=== PATIENT | male | born 1950 | race Caucasian/White ===

== ENCOUNTER 2016-03-26 10:23 | Inpatient (IN) | payer MEDICARE, BC, OTHER ==
[~2016-03-26] VITALS: Ht 167.6 cm; Wt 90.3 kg
[~2016-03-26 10:23] MED LIST: ACET-654 PO; ALTA10CA3 PO; ASPI81TA85 PO; ASPI81TAEC PO; ATOR40TA PO; AZIT250T3 PO; CHLO25TA PO; COLA100C PO; DELT1TAB PO; DOXY10CA PO; IBUP200T45 PO; MAPA325T2 PO; METO50TA2 PO; MUCI600T34 PO; NICO14PA TD; PROA1AER INH; SERTRALINE 100 MG TAB PO SCH; VITA200015 PO; ZOLO100T PO
[2016-03-26] MEDS ORDERED: ALBUTEROL SULFATE 2.5 MG/0.5 ML INH NEB SOLN NEB PRN (10:45)
[2016-03-26 11:16] VITALS: BP 155/89
[2016-03-26] MEDS ORDERED: ALBUTEROL SULFATE 2.5 MG/0.5 ML INH NEB SOLN As Ordered ONE (11:29)
[2016-03-26 11:35] LABS: BASO % 0.6 % (0.0-1.0); EOS # 1.7 K/mm3 (0.0-0.50); EOS % 18.1 % (0.0-3.0); LARGE UNSTAINED CELL # 0.2 K/mm3 (0.0-0.4); LYMPH # 1.6 K/mm3 (1.5-4.5); LYMPH % 17.1 % (24.0-44.0); MEAN CORPUSCULAR HEMOGLOBIN 33.7 pg (27.0-33.0); MEAN CORPUSCULAR HGB CONC 33.7 g/dl (32.0-36.5); MEAN CORPUSCULAR VOLUME 99.9 fl (80.0-96.0); MONO # 0.8 K/mm3 (0.0-0.8); MONO % 8.1 % (0.0-5.0); NEUTROPHILS # 5.2 K/mm3 (1.8-7.7); NEUTROPHILS % 54.2 % (36.0-66.0); PLATELET COUNT, AUTOMATED 415 k/mm3 (150-450); RED CELL DISTRIBUTION WIDTH 12.1 % (11.5-14.5); WHITE BLOOD COUNT 9.6 K/mm3 (4.0-10.0)
[2016-03-26 11:55] LABS: ABG BASE EXCESS 4.5 (-2.0-2.0); ABG HCO3 30.3 MEQ/L (22.0-26.0); ABG PARTIAL PRESSURE CO2 49.8 mmHg (35.0-45.0); ABG PARTIAL PRESSURE O2 76.5 mmHg (75.0-100.0); ABG STANDARD HCO3 28.4 MEQ/L (22.0-26.0); ABG TOTAL CO2 31.8 MEQ/L (23.0-31.0); ABG pH (ARTERIAL) 7.402 UNITS (7.350-7.450)
[2016-03-26 12:00] VITALS: BP 150/77
[2016-03-26] MEDS ORDERED: SPIR12.9 INH (12:09)
[2016-03-26 12:13] LABS: ALBUMIN 3.7 GM/DL (3.2-5.2); ALBUMIN/GLOBULIN RATIO 1.12 (1.00-1.93); ALKALINE PHOSPHATASE 66 U/L (45-117); ALT/SGPT 24 U/L (12-78); ANION GAP 10 MEQ/L (8-16); AST/SGOT 13 U/L (15-37); BILIRUBIN,TOTAL 0.4 MG/DL (0.2-1.0); BLOOD UREA NITROGEN 26 MG/DL (7-18); CALCIUM LEVEL 9.2 MG/DL (8.8-10.2); CARBON DIOXIDE LEVEL 32 MEQ/L (21-32); CHLORIDE LEVEL 101 MEQ/L (98-107); CREATININE FOR GFR 1.05 MG/DL (0.70-1.30); GLOMERULAR FILTRATION RATE > 60.0 (>49); GLUCOSE, FASTING 113 MG/DL (80-110); POTASSIUM SERUM 3.5 MEQ/L (3.5-5.1); SODIUM LEVEL 143 MEQ/L (136-145)
--- NOTE | 2016-03-26 12:14 | CR ---
DATE OF CONSULTATION: 03/26/2016 PULMONARY CONSULTATION: I was asked to see this 66-year-old male admitted today with cough and increasing dyspnea with low oxygen saturations in the primary care office. He was ill with similar symptoms in January and February. Following each of those admissions, his symptoms would subside for some time but then re-occur. A smoker of many years he quit his 50 pack-year smoking history 4-6 weeks ago. At baseline, he is short of breath on walking up one flight of stairs, does not feel limited to walking on level ground at his own pace. There is no past pulmonary history of bronchopulmonary infections. 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 It did expose him to various aromatics and dust, but there was no overwhelming exposure identified. No asbestos exposure known. He has no environmental sensitivities that he is aware of, though he has been treated for nasal polyps in the past. There is no history of tuberculosis exposures. He has never suffered a deep venous thrombosis (DVT) or pulmonary embolism. Has no recent significant foreign travel and owns no unusual pets. He partakes in no uncommon hobbies. His past medical history includes hypertension, acid reflux disease, benign prostatic hypertrophy, nasal polyps, hyperparathyroidism. On social history, a 50 pack-year smoker. He recently stopped. He takes alcohol and a regular basis. Has a supportive spouse who is present at the interview today. Family history was noncontributory in that there was no known inheritable illness. On review of systems: Constitutional: His appetite has been fair. He has had no significant change in weight. HEENT: He has a history of sinus polyps and believes he is recurrently involved with sinus infections. There is no history of impairment of smell or taste. He has recently had cataract resections. Cardiovascular: There is no history of typical anginal-type chest pain, orthopnea or paroxysmal nocturnal dyspnea. Pulmonary: See above. Gastrointestinal (GI): There is a history of colon polyps remotely and diverticular disease. No history of hepatitis, pancreatitis or gallbladder disease. Genitourinary (): There is a history of frequency. No dysuria or kidney stone history. Endocrine: He has primary hyperparathyroidism. No history of diabetes but is known to be prediabetic. He has had no recent intolerance of heat or cold, nor signs of endocrine disorder. Neurologic: There is no history of stroke or seizure. Musculoskeletal: He has some back pain and osteoarthritis. Dermatologic: No psoriasis or pruritic skin lesions. Hematologic: No easy bruising or bleeding. He has never received a blood transfusion. On physical exam: His temperature is 97, pulse rate 67, respirations 19, blood pressure 135/89, saturation 94% on 2 liters of oxygen via nasal cannula. HEENT: Oral and nasal mucosa are pink. His posterior pharynx shows no erythema. There is no stridor over the trachea. No adenopathy in the neck. Jugular veins not distended. Carotid upstroke is brisk. No bruit. Heart sounds are regular, somewhat distant. No appreciable murmur. Breath are sounds diminished bilaterally. There is diffuse inspiratory and expiratory wheeze. Chest is symmetric, increased its AP diameter. There is mild hyperresonance to percussion. No tactile fremitus. Diaphragm motion is difficult to assess. Abdomen is soft, obese with intact bowel sounds. No mass or organomegaly. Extremities: Show no significant edema. Nails are not clubbed. Skin is cool, dry. Gait and station untested. The patient is in bed. DIAGNOSTIC STUDIES: Laboratory studies and x-rays are pending from today. I have reviewed previous images. CT of the chest shows some emphysematous changes and there is a chronic subpleural density in the left base what appears to be scar tissue. Prior arterial blood gases did not reveal hypercarbia. IMPRESSION: 1. Acute exacerbation of chronic obstructive pulmonary disease with significant airway inflammation. 2. Tobacco abuse, 50 pack-years, recently quit. RECOMMENDATION: 1. I agree with intravenous antibiotics, IV steroids, oxygen and nebulized therapy. 2. We will ask that his nebulized treatments be administered via EzPAP to facilitate delivery. 3. I will add Pulmicort to his nebulizer to facilitate weaning from the IV steroids. 4. Mucinex to facilitate secretion clearance. Thank you for allowing me consult review this patient. We will be happy to follow with you during his hospital stay, on an outpatient basis if necessary.
--- NOTE | 2016-03-26 13:21 | REP ---
CT HEAD WITHOUT CONTRAST: HISTORY: Sinusitis. Comparison 02/14/2015. Areas of decreased attenuation are present in the periventricular white matter. This represents small vessel ischemic disease. There is no intraparenchymal hemorrhage, mass or midline shift. The ventricular system is normal in appearance. The cortical sulci are dilated consistent with minimal volume loss. There is no extracerebral collection. Mucosal thickening is present in the sinuses. IMPRESSION: 1. Small vessel ischemic disease. 2. Minimal volume loss. Signed by Roshan Guaman MD 03/26/2016 01:23 P
--- NOTE | 2016-03-26 13:24 | REP ---
MAXILLOFACIAL CT WITHOUT CONTRAST: HISTORY: Chronic sinusitis. COMPARISON: 09/12/2015. Diffuse sinus mucosal thickening is present in the sinuses. There is complete opacification of the right frontal sinus. There is almost complete opacification of the ethmoid and left frontal sinuses. Moderate mucosal thickening is present in the maxillary sinuses. Minimal mucosal thickening is present in the sphenoid sinuses. Mucosal thickening involves the ostiomeatal units. The uncinate processes and several ethmoid sinus septa are not seen. This may be due to surgery or demineralization secondary to chronic sinusitis. The middle and inferior nasal turbinates are partially paradoxical. There is minimal deviation of the nasal septum to the left. A spur is present arising from the left side of the nasal septum. The cribriform plate, medial herrera of the orbits and optic canals are intact. The carotid canals form a segment of the posterolateral herrera of the sphenoid sinus. The sphenoid sinus septum inserts in the left internal carotid canal wall. IMPRESSION: Sinus mucosal thickening as described above. Signed by Roshan Guaman MD 03/26/2016 01:27 P
[2016-03-26] MEDS: IPRATROPIUM 0.5MG/ALBUTEROL 2.5MG INH SOL UD 3ML (DUONEB)(J7620) NEB SCH ×2 (13:41→20:13)
[2016-03-26] MEDS: BUDESONIDE 0.5 MG/2 ML INHALATION SUSPENSION INH SCH ×2 (13:42→20:12)
--- NOTE | 2016-03-26 13:58 | REP ---
CHEST, TWO VIEWS: HISTORY: COPD. COMPARISON: 02/29/2016 Linear densities are present in the left lower lobe consistent with atelectasis or scar. The right lung is clear. The heart is normal in size. The pulmonary vasculature is normal in appearance. Degenerative change is present in the thoracic spine. IMPRESSION: Left lower lobe atelectasis or scar. Signed by Roshan Guaman MD 03/26/2016 01:59 P
[2016-03-26] MEDS: PANTOPRAZOLE 40MG TAB (PROTONIX) PO SCH (13:59)
[2016-03-26] MEDS: ENOXAPARIN 40 MG/0.4 ML SYRINGE (J1650) SC SCH (13:59)
[2016-03-26] MEDS: guaiFENesin ER 600 MG TAB PO SCH ×2 (13:59→21:08)
[2016-03-26] MEDS: MOXIFLOXACIN HCL 400 MG in APPROPRIATE DILUENT 1 EA IV SCH (14:00)
[2016-03-26] MEDS: methylPREDNISolone INJ 125 MG/2 ML VIAL (J2930) IV SCH ×2 (14:00→21:09)
--- NOTE | 2016-03-26 15:24 | ECHO ---
DATE OF PROCEDURE: 03/26/2016 HEIGHT: 66 inches. WEIGHT: 195 pounds. BODY SURFACE AREA: 1.98 meters squared. INPATIENT: ICU room 3206 REFERRING PHYSICIAN: Dr. Aubrey Alcantara INDICATION: Shortness of breath. MEASUREMENTS: 2D Measurements: RV - 3.6 cm LV - 4.4 cm Septum - 1.1 cm Posterior wall - 1.1 cm Aortic root - 3.1 cm LA - 3.6 cm LVEF - 65% Doppler Measurements: ARTERIOVENOUS - 1.5 m/s LVOT - Not accurate incorrect Doppler position. LVOT diameter - 2.2 cm MV-E - 88, A - 63, E/A ratio 1.3 Early mitral deceleration time - 183 ms E prime 6, A prime 8, E/E prime ratio 13.2 PV - 0.95 m/s Pulmonary artery acceleration time 95 ms. PASP - 36 mmHg IVC - 1.7 cm COMMENTS: Sinus bradycardia averaging in the 50s per minute. No intraventricular conduction disturbance. Slightly challenging study in light of the patient's body habitus but diagnostically useful information was still obtained. Normal cardiac chamber sizes and wall thickness. On real-time imaging from the parasternal and apical projections, wall motion was symmetrical and normal. Normal-appearing mitral valvular apparatus and leaflet excursion with no posterior systolic buckling. Three equal size aortic cusps of normal thickness and cusp separation. Normal aortic root size. No apparent intracardiac mass or pericardial effusion. Guided continuous wave Doppler of his aortic valve showed a normal peak systolic velocity against LV outflow tract obstruction. Pulsed and continuous wave Doppler of his LV inflow tract taken from the apical four-chamber projection showed normal diastolic filling velocities against mitral stenosis. There was also a normal filling pattern against LV diastolic dysfunction. Current estimated mean left atrial pressure was within normal limits. Pulsed and continuous wave Doppler of his pulmonary trunk showed a normal peak systolic velocity against RV outflow tract obstruction. His pulmonary artery acceleration time was mildly abbreviated suggestive of a slightly elevated pulmonary vascular resistance and mild pulmonary hypertension. We attempted to further estimate his right ventricular systolic pressure using guided continuous wave Doppler of his tricuspid valve but could not get a clear spectral and envelope. His inferior vena cava was of normal size with normal respiratory collapse against an elevated central venous pressure. CONCLUSION: Normal-appearing left ventricular size, wall thickness and wall motion. Normal left atrial size and Doppler assessment of LV diastolic function and estimated mean left atrial pressure. Normal right heart chamber sizes but Doppler evidence of mild pulmonary hypertension. Normal IVC size and collapse against an elevated central venous pressure.
[2016-03-26 16:00] VITALS: BP 125/75
--- NOTE | 2016-03-26 16:46 | ECGEPIP ---
Stationary ECG Study [facility] Test Date: 2016-03-26 Pat Name: CHULA QUINTERO Department: Room: [place] [address] Gender: M [employer]: : 1950 Requested By: Aubrey Alcantara Order Number: [id number] Reading MD: Anthony Mendes Measurements Intervals [place] Rate: 61 P: 75 [place]: 177 QRS: 32 QRSD: 97 T: 18 QT: 435 QTc: 440 Interpretive Statements Normal sinus rhythm Normal EKG No significant change when compared to prior tracing of 02/29/2016 Electronically Signed On 03-26-2016 16:46:12 EST by Anthony Mendes
[2016-03-26 17:30] VITALS: BP 144/81
[2016-03-26] MEDS: ATORVASTATIN 20 MG TAB PO SCH (21:09)
[2016-03-26 22:00] VITALS: BP 125/92
[2016-03-27] MEDS: IPRATROPIUM 0.5MG/ALBUTEROL 2.5MG INH SOL UD 3ML (DUONEB)(J7620) NEB SCH ×5 (00:40→22:23)
[2016-03-27] MEDS: methylPREDNISolone INJ 125 MG/2 ML VIAL (J2930) IV SCH ×3 (05:33→21:41)
[2016-03-27 06:00] VITALS: BP 142/61
[2016-03-27 07:00] LABS: MEAN CORPUSCULAR HEMOGLOBIN 33.8 pg (27.0-33.0); MEAN CORPUSCULAR HGB CONC 34.1 g/dl (32.0-36.5); MEAN CORPUSCULAR VOLUME 99.4 fl (80.0-96.0); RED CELL DISTRIBUTION WIDTH 12.2 % (11.5-14.5)
[2016-03-27] MEDS: BUDESONIDE 0.5 MG/2 ML INHALATION SUSPENSION INH SCH (07:07)
[2016-03-27 07:09] LABS: ANION GAP 9 MEQ/L (8-16); BLOOD UREA NITROGEN 20 MG/DL (7-18); CALCIUM LEVEL 9.5 MG/DL (8.8-10.2); CARBON DIOXIDE LEVEL 30 MEQ/L (21-32); CHLORIDE LEVEL 102 MEQ/L (98-107); CREATININE FOR GFR 1.08 MG/DL (0.70-1.30); GLOMERULAR FILTRATION RATE > 60.0 (>49); GLUCOSE, FASTING 149 MG/DL (80-110); POTASSIUM SERUM 3.3 MEQ/L (3.5-5.1); SODIUM LEVEL 141 MEQ/L (136-145)
[2016-03-27] MEDS: ENOXAPARIN 40 MG/0.4 ML SYRINGE (J1650) SC SCH (08:45)
[2016-03-27] MEDS: RAMIPRIL 5 MG CAP PO SCH (08:46)
[2016-03-27] MEDS: CHLORTHALIDONE 25 MG TAB PO SCH (08:46)
[2016-03-27] MEDS: SERTRALINE 100 MG TAB PO SCH (08:47)
[2016-03-27] MEDS: guaiFENesin ER 600 MG TAB PO SCH ×2 (08:47→21:41)
[2016-03-27] MEDS: ASPIRIN 81 MG ENTERIC TAB PO SCH (08:47)
[2016-03-27] MEDS: PANTOPRAZOLE 40MG TAB (PROTONIX) PO SCH (08:47)
--- NOTE | 2016-03-27 11:44 | IPNPDOC ---
Assessment/Plan Date Seen The patient was seen on 03/27/16. Problems Problems: (1) Hypoxemia Status: Acute Problem Specific Plan: Monitor Clinically Problem Text: requiring 4LNC. Will continue to taper down as patient's condition improves. (2) COPD exacerbation Status: Acute Problem Specific Plan: Monitor Clinically Problem Text: Continue Solumedrol, Avelox, nebs Patient's friend states symptoms return when stopped prednisone after past hospitalizations. may consider longer steroid taper. (3) Diabetes mellitus type 2 in obese Status: Chronic Problem Specific Plan: Monitor Clinically (4) Depression Status: Chronic Problem Specific Plan: Monitor Clinically (5) Hyperlipidemia Status: Chronic Problem Specific Plan: Monitor Clinically (6) Hypertension Status: Chronic Problem Specific Plan: Monitor Clinically (7) Hypertensive heart disease without CHF Status: Chronic Problem Specific Plan: Monitor Clinically Plan / VTE VTE Prophylaxis Ordered?: Yes (Lovenox) Plan Plan Text Attending Note: I saw and evaluated the patient, and I agree with the plan of care as discussed and documented. Ramon Fernando MD Subjective Review of Systems CC/HPI The patient is a 66-year-old male admitted with a reason for visit of Copd, Hypoxemia. Events since last encounter noting improvement in symptoms since yesterday. EZ Pap added to neb txs. Patient tolerating well. Constitutional: Denies: Chills, Fever, Malaise, Night Sweats, Weakness ENT: Denies: Dysphagia, Ear Pain, Head Aches Skin: Denies: Breakdown, Lesions, Rash Pulmonary: Reports: Cough, Dyspnea Cardiovascular: Denies: Chest Pain, Lt Headedness, Orthopnea, Palpitations, Paroxysmal Noc. Dyspnea Gastrointestinal: Denies: Abdominal Pain, Diarrhea, Nausea, Vomiting Genitourinary: Denies: Dysuria, Frequency, Incontinence, Retention Psych: Reports: Mood Normal, Denies: Depression, Memory Issues Objective Physical Examination General Exam: Positive: Alert, No Acute Distress ENT Exam: Positive: Atraumatic, Mucous membr. moist/pink, Pharynx Normal Neck Exam: Positive: Supple, Negative: JVD, thyromegaly Chest Exam: Positive: Diminished, Wheezing Heart Exam: Positive: Normal S1, Normal S2, Rate Normal, Regular Rhythm, Negative: Murmurs, Rubs Abdomen Exam: Positive: Normal bowel sounds, Soft, Negative: Hepatospenomegaly, Tenderness Extremity Exam: Positive: Normal pulses, Negative: Clubbing, Cyanosis, Edema Psych Exam: Positive: Mental status NL, Mood NL, Oriented x 3 Vital Signs/I&O Vital Signs Date Time Temp Pulse Resp B/P Pulse Ox O2 Delivery O2 Flow Rate FiO2 03/27/16 09:45 Nasal Cannula 4.0 03/27/16 08:46 142/61 03/27/16 06:00 98.2 60 16 92 I&O- Last 24 Hours up to 6 AM 03/27/16 06:00 Intake Total 1200 ml Output Total 800 ml Balance 400 ml Laboratory Data Labs 24H Laboratory Tests 2 03/26/16 11:41: Arterial Blood pH 7.402, Arterial Blood Partial Pressure CO2 49.8H, Arterial Blood Partial Pressure O2 76.5, Arterial Blood Total CO2 31.8H, Arterial Blood HCO3 30.3H, Arterial Blood Base Excess 4.5H, Arterial Blood Oxygen Saturation 95.0, Blood Gas Bicarbonate Standard 28.4H 03/27/16 06:36: Anion Gap 9, Blood Urea Nitrogen 20H, Creatinine 1.08, Sodium Level 141, Potassium Level 3.3L, Chloride Level 102, Carbon Dioxide Level 30, Calcium Level 9.5, Glomerular Filtration Rate > 60.0 CBC/BMP Laboratory Tests 03/27/16 06:36 Calcium Level 9.5, Red Blood Count 3.55 L, Mean Corpuscular Volume 99.4 H, Mean Corpuscular Hemoglobin 33.8 H, Mean Corpuscular Hemoglobin Concent 34.1, Red Cell Distribution Width 12.2 Microbiology Microbiology 03/26/16 Respiratory Virus Panel (PCR) ([facility]) - Final, Complete 03/26/16 MRSA Screen, Received Pending Venecia Pritchett Mar 27, 2016 11:44 RAMON FERNANDO MD Mar 31, 2016 21:43
[2016-03-27] MEDS ORDERED: POTASSIUM CHLORIDE 10 MEQ SR TABLET PO ONE (11:45)
[2016-03-27] MEDS: FLUTICASONE PROP 0.05% NASAL SPRAY 16 GM (FLONASE) SCH ×2 (13:41→21:41)
[2016-03-27] MEDS: MOXIFLOXACIN HCL 400 MG in APPROPRIATE DILUENT 1 EA IV SCH (13:42)
[2016-03-27 14:00] VITALS: BP 135/62
[2016-03-27] MEDS: SYMBICORT 160/4.5MCG INHALER 6GM INH SCH (16:48)
[2016-03-27 19:55] VITALS: BP 160/89
[2016-03-27] MEDS: ATORVASTATIN 20 MG TAB PO SCH (21:41)
[2016-03-27 22:06] VITALS: BP 160/89
[2016-03-28] MEDS: methylPREDNISolone INJ 125 MG/2 ML VIAL (J2930) IV SCH ×3 (05:26→21:43)
[2016-03-28 06:03] VITALS: BP 133/68
[2016-03-28 07:00] LABS: ANION GAP 8 MEQ/L (8-16); BLOOD UREA NITROGEN 26 MG/DL (7-18); CARBON DIOXIDE LEVEL 31 MEQ/L (21-32); CHLORIDE LEVEL 104 MEQ/L (98-107); CREATININE FOR GFR 0.98 MG/DL (0.70-1.30); GLOMERULAR FILTRATION RATE > 60.0 (>49); GLUCOSE, FASTING 138 MG/DL (80-110); POTASSIUM SERUM 3.5 MEQ/L (3.5-5.1); SODIUM LEVEL 143 MEQ/L (136-145)
[2016-03-28 07:02] LABS: MEAN CORPUSCULAR HEMOGLOBIN 33.9 pg (27.0-33.0); MEAN CORPUSCULAR HGB CONC 33.8 g/dl (32.0-36.5); MEAN CORPUSCULAR VOLUME 100.2 fl (80.0-96.0); RED CELL DISTRIBUTION WIDTH 12.4 % (11.5-14.5); WHITE BLOOD COUNT 13.2 K/mm3 (4.0-10.0)
[2016-03-28] MEDS: SYMBICORT 160/4.5MCG INHALER 6GM INH SCH ×2 (07:43→19:53)
[2016-03-28] MEDS: IPRATROPIUM 0.5MG/ALBUTEROL 2.5MG INH SOL UD 3ML (DUONEB)(J7620) NEB SCH ×3 (07:44→19:53)
[2016-03-28 08:31] VITALS: BP 133/68
[2016-03-28] MEDS: CHLORTHALIDONE 25 MG TAB PO SCH (08:40)
[2016-03-28] MEDS: ENOXAPARIN 40 MG/0.4 ML SYRINGE (J1650) SC SCH (08:40)
[2016-03-28] MEDS: RAMIPRIL 5 MG CAP PO SCH (08:40)
[2016-03-28] MEDS: SERTRALINE 100 MG TAB PO SCH (08:41)
[2016-03-28] MEDS: ASPIRIN 81 MG ENTERIC TAB PO SCH (08:41)
[2016-03-28] MEDS: guaiFENesin ER 600 MG TAB PO SCH ×2 (08:43→21:42)
[2016-03-28] MEDS: PANTOPRAZOLE 40MG TAB (PROTONIX) PO SCH (08:43)
[2016-03-28] MEDS: FLUTICASONE PROP 0.05% NASAL SPRAY 16 GM (FLONASE) SCH ×2 (08:44→21:43)
--- NOTE | 2016-03-28 11:56 | IPNPDOC ---
Assessment/Plan Date Seen The patient was seen on 03/28/16. Problems Problems: (1) Hypoxemia Status: Acute Problem Specific Plan: Monitor Clinically Problem Text: requiring 4LNC. Will continue to taper down as patient's condition improves. (2) COPD exacerbation Status: Acute Problem Specific Plan: Monitor Clinically Problem Text: D3 moxi-03/26/16 CXR s infiltrate Continue Solumedrol, Avelox, nebs Patient's friend states symptoms return when stopped prednisone after past hospitalizations. may consider longer steroid taper. (3) Diabetes mellitus type 2 in obese Status: Chronic Problem Specific Plan: Monitor Clinically (4) Depression Status: Chronic Problem Specific Plan: Monitor Clinically (5) Hyperlipidemia Status: Chronic Problem Specific Plan: Monitor Clinically (6) Hypertension Status: Chronic Problem Specific Plan: Monitor Clinically (7) Hypertensive heart disease without CHF Status: Chronic Problem Specific Plan: Monitor Clinically (8) Oral candidiasis Status: Acute Problem Text: Nystatin Swish and swallow. Encouraged to rinse after nebs. Plan / VTE VTE Prophylaxis Ordered?: Yes (Lovenox) Subjective Review of Systems CC/HPI The patient is a 66-year-old male admitted with a reason for visit of Copd, Hypoxemia. Events since last encounter Continues to have dyspnea. Failed weaning on oxygen yesterday. C/o sore throat today. Constitutional: Denies: Chills, Fever, Malaise, Night Sweats, Weakness ENT: Reports: Sore Throat Skin: Denies: Breakdown, Lesions, Rash Pulmonary: Reports: Dyspnea Cardiovascular: Denies: Chest Pain, Lt Headedness, Orthopnea, Palpitations, Paroxysmal Noc. Dyspnea Gastrointestinal: Denies: Abdominal Pain, Diarrhea, Nausea, Vomiting Genitourinary: Denies: Dysuria, Frequency, Incontinence, Retention Psych: Reports: Mood Normal, Denies: Depression, Memory Issues Objective Physical Examination General Exam: Positive: Alert, No Acute Distress ENT Exam: Positive: Atraumatic, Mucous membr. moist/pink, Other ENT (macules to oropharynx noted), Pharynx Normal Neck Exam: Positive: Supple, Negative: JVD, thyromegaly Chest Exam: Positive: Diminished Heart Exam: Positive: Normal S1, Normal S2, Rate Normal, Regular Rhythm, Negative: Murmurs, Rubs Abdomen Exam: Positive: Normal bowel sounds, Soft, Negative: Hepatospenomegaly, Tenderness Extremity Exam: Positive: Normal pulses, Negative: Clubbing, Cyanosis, Edema Psych Exam: Positive: Mental status NL, Mood NL, Oriented x 3 Vital Signs/I&O Vital Signs Date Time Temp Pulse Resp B/P Pulse Ox O2 Delivery O2 Flow Rate FiO2 03/28/16 08:40 133/68 03/28/16 08:31 95 03/28/16 08:29 Nasal Cannula 4.0 03/28/16 06:03 97.6 20 95 I&O- Last 24 Hours up to 6 AM 03/28/16 06:00 Intake Total 1200 ml Output Total 2 ml Balance 1198 ml Laboratory Data Labs 24H Laboratory Tests 2 03/28/16 06:31: Anion Gap 8, Blood Urea Nitrogen 26H, Creatinine 0.98, Sodium Level 143, Potassium Level 3.5, Chloride Level 104, Carbon Dioxide Level 31, Calcium Level 9.0, Glomerular Filtration Rate > 60.0 CBC/BMP Laboratory Tests 03/28/16 06:31 Calcium Level 9.0, Red Blood Count 3.21 L, Mean Corpuscular Volume 100.2 H, Mean Corpuscular Hemoglobin 33.9 H, Mean Corpuscular Hemoglobin Concent 33.8, Red Cell Distribution Width 12.4 Microbiology Microbiology 03/26/16 Respiratory Virus Panel (PCR) ([facility]) - Final, Complete 03/26/16 MRSA Screen - Final, Complete Venecia Pritchett Mar 28, 2016 11:56 Alex Peraza M.D. Mar 28, 2016 14:01
[2016-03-28 14:00] VITALS: BP 157/73
[2016-03-28] MEDS: MOXIFLOXACIN 400 MG TAB PO SCH (14:50)
[2016-03-28] MEDS: ATORVASTATIN 20 MG TAB PO SCH (21:42)
[2016-03-28 22:00] VITALS: BP 168/77
[2016-03-29] MEDS: IPRATROPIUM 0.5MG/ALBUTEROL 2.5MG INH SOL UD 3ML (DUONEB)(J7620) NEB SCH ×4 (01:37→20:00)
[2016-03-29] MEDS: methylPREDNISolone INJ 125 MG/2 ML VIAL (J2930) IV SCH ×3 (05:56→21:01)
[2016-03-29] MEDS: MOXIFLOXACIN 400 MG TAB PO SCH (05:56)
[2016-03-29 06:00] VITALS: BP 136/79
[2016-03-29 06:53] LABS: MEAN CORPUSCULAR HEMOGLOBIN 34.5 pg (27.0-33.0); MEAN CORPUSCULAR VOLUME 101.3 fl (80.0-96.0); RED CELL DISTRIBUTION WIDTH 12.2 % (11.5-14.5); WHITE BLOOD COUNT 11.2 K/mm3 (4.0-10.0)
[2016-03-29 07:00] LABS: ANION GAP 8 MEQ/L (8-16); BLOOD UREA NITROGEN 25 MG/DL (7-18); CALCIUM LEVEL 8.4 MG/DL (8.8-10.2); CARBON DIOXIDE LEVEL 33 MEQ/L (21-32); CHLORIDE LEVEL 102 MEQ/L (98-107); GLOMERULAR FILTRATION RATE > 60.0 (>49); GLUCOSE, FASTING 106 MG/DL (80-110); POTASSIUM SERUM 3.2 MEQ/L (3.5-5.1); SODIUM LEVEL 143 MEQ/L (136-145)
[2016-03-29] MEDS: SYMBICORT 160/4.5MCG INHALER 6GM INH SCH ×2 (07:36→19:48)
[2016-03-29] MEDS: guaiFENesin ER 600 MG TAB PO SCH ×2 (09:09→19:53)
[2016-03-29] MEDS: RAMIPRIL 5 MG CAP PO SCH (09:09)
[2016-03-29] MEDS: PANTOPRAZOLE 40MG TAB (PROTONIX) PO SCH (09:09)
[2016-03-29] MEDS: ENOXAPARIN 40 MG/0.4 ML SYRINGE (J1650) SC SCH (09:10)
[2016-03-29] MEDS: ASPIRIN 81 MG ENTERIC TAB PO SCH (09:10)
[2016-03-29] MEDS: SERTRALINE 100 MG TAB PO SCH (09:10)
[2016-03-29] MEDS: FLUTICASONE PROP 0.05% NASAL SPRAY 16 GM (FLONASE) SCH ×2 (09:10→19:53)
[2016-03-29] MEDS: CHLORTHALIDONE 25 MG TAB PO SCH (09:10)
[2016-03-29 10:39] VITALS: BP 136/79
--- NOTE | 2016-03-29 13:24 | IPNPDOC ---
Assessment/Plan Date Seen The patient was seen on 03/29/16. Problems Problems: (1) Hypoxemia Status: Acute Problem Specific Plan: Monitor Clinically Problem Text: 03/29/2016: tapered down to 2LNC requiring 4LNC. Will continue to taper down as patient's condition improves. (2) COPD exacerbation Status: Acute Problem Specific Plan: Monitor Clinically Problem Text: D4 moxi-03/26/16 CXR s infiltrate Continue Solumedrol, Avelox, nebs Patient's friend states symptoms return when stopped prednisone after past hospitalizations. may consider longer steroid taper. (3) Diabetes mellitus type 2 in obese Status: Chronic Problem Specific Plan: Monitor Clinically (4) Depression Status: Chronic Problem Specific Plan: Monitor Clinically (5) Hyperlipidemia Status: Chronic Problem Specific Plan: Monitor Clinically (6) Hypertension Status: Chronic Problem Specific Plan: Monitor Clinically (7) Hypertensive heart disease without CHF Status: Chronic Problem Specific Plan: Monitor Clinically (8) Oral candidiasis Status: Acute Problem Text: Nystatin Swish and swallow. Encouraged to rinse after nebs. Plan / VTE VTE Prophylaxis Ordered?: Yes (Lovenox) Subjective Review of Systems CC/HPI The patient is a 66-year-old male admitted with a reason for visit of Copd, Hypoxemia. Events since last encounter Continues to slowly improve. Oxygen weaned to 2LNC. Constitutional: Denies: Chills, Fever, Malaise, Night Sweats, Weakness ENT: Denies: Dysphagia, Ear Pain, Head Aches Pulmonary: Reports: Cough, Dyspnea Cardiovascular: Denies: Chest Pain, Lt Headedness, Orthopnea, Palpitations, Paroxysmal Noc. Dyspnea Gastrointestinal: Denies: Abdominal Pain, Diarrhea, Nausea, Vomiting Genitourinary: Denies: Dysuria, Frequency, Incontinence, Retention Neurological: Denies: Change in speech, Confusion, Numbness, Weakness Psych: Reports: Mood Normal, Denies: Depression, Memory Issues Objective Physical Examination General Exam: Positive: Alert, No Acute Distress ENT Exam: Positive: Atraumatic, Mucous membr. moist/pink, Other ENT, Pharynx Normal Neck Exam: Positive: Supple Chest Exam: Positive: Diminished (improved aeration. no wheeze) Heart Exam: Positive: Normal S1, Normal S2, Rate Normal, Regular Rhythm Abdomen Exam: Positive: Normal bowel sounds, Soft Extremity Exam: Positive: Normal pulses Psych Exam: Positive: Mental status NL, Mood NL, Oriented x 3 Vital Signs/I&O Vital Signs Date Time Temp Pulse Resp B/P Pulse Ox O2 Delivery O2 Flow Rate FiO2 03/29/16 10:39 78 136/79 03/29/16 07:57 Nasal Cannula 3.0 03/29/16 07:44 92 03/29/16 06:00 96.8 20 I&O- Last 24 Hours up to 6 AM 03/29/16 06:00 Intake Total 1920 ml Output Total 1800 ml Balance 120 ml Laboratory Data Labs 24H Laboratory Tests 2 03/29/16 06:32: Anion Gap 8, Blood Urea Nitrogen 25H, Creatinine 1.00, Sodium Level 143, Potassium Level 3.2L, Chloride Level 102, Carbon Dioxide Level 33H, Calcium Level 8.4L, Glomerular Filtration Rate > 60.0 CBC/BMP Laboratory Tests 03/29/16 06:32 Calcium Level 8.4 L, Red Blood Count 3.15 L, Mean Corpuscular Volume 101.3 H, Mean Corpuscular Hemoglobin 34.5 H, Mean Corpuscular Hemoglobin Concent 34.0, Red Cell Distribution Width 12.2 Microbiology Microbiology 03/26/16 Respiratory Virus Panel (PCR) ([facility]) - Final, Complete 03/26/16 MRSA Screen - Final, Complete Venecia Pritchett Mar 29, 2016 13:24
[2016-03-29 14:00] VITALS: BP 129/78
[2016-03-29] MEDS ORDERED: POTASSIUM CHLORIDE 10 MEQ SR TABLET PO ONE (14:00)
[2016-03-29] MEDS: ATORVASTATIN 20 MG TAB PO SCH (19:53)
[2016-03-30] MEDS: IPRATROPIUM 0.5MG/ALBUTEROL 2.5MG INH SOL UD 3ML (DUONEB)(J7620) NEB SCH ×4 (00:54→19:29)
[2016-03-30] MEDS: methylPREDNISolone INJ 125 MG/2 ML VIAL (J2930) IV SCH ×2 (05:10→17:35)
[2016-03-30] MEDS: MOXIFLOXACIN 400 MG TAB PO SCH (05:10)
[2016-03-30 06:00] VITALS: BP 161/82
[2016-03-30 06:40] LABS: MEAN CORPUSCULAR HEMOGLOBIN 34.7 pg (27.0-33.0); MEAN CORPUSCULAR HGB CONC 34.5 g/dl (32.0-36.5); MEAN CORPUSCULAR VOLUME 100.8 fl (80.0-96.0); RED CELL DISTRIBUTION WIDTH 12.2 % (11.5-14.5); WHITE BLOOD COUNT 9.3 K/mm3 (4.0-10.0)
[2016-03-30 07:07] LABS: ANION GAP 10 MEQ/L (8-16); BLOOD UREA NITROGEN 26 MG/DL (7-18); CALCIUM LEVEL 8.5 MG/DL (8.8-10.2); CARBON DIOXIDE LEVEL 31 MEQ/L (21-32); CHLORIDE LEVEL 101 MEQ/L (98-107); GLOMERULAR FILTRATION RATE > 60.0 (>49); GLUCOSE, FASTING 136 MG/DL (80-110); POTASSIUM SERUM 3.2 MEQ/L (3.5-5.1); SODIUM LEVEL 142 MEQ/L (136-145)
[2016-03-30] MEDS: SYMBICORT 160/4.5MCG INHALER 6GM INH SCH ×2 (07:46→19:29)
--- NOTE | 2016-03-30 08:47 | IPNPDOC ---
Assessment/Plan Date Seen The patient was seen on 03/30/16. Family Medicine Attending Note: Patient seen and examined; I d/w ANGIE Schumacher and I agree with her note below. Patient states breathing is improved and is off supplemental O2; no wheezing on exam but still has poor air movement throughout all lung castellon. Solumedrol weaned today; continue nebs and moxifloxacin. (KES) Problems Problems: (1) COPD exacerbation Status: Acute Problem Specific Plan: Monitor Clinically Problem Text: D4 moxi-03/26/16 CXR s infiltrate Continue Solumedrol, Avelox, nebs Patient's friend states symptoms return when stopped prednisone after past hospitalizations. may consider longer steroid taper. 03/30 - D4 Avelox, will decrease solumedrol from 80 q8 to 60 q6, plan to change to po tomorrow, will require long, slow taper d/t h/o and travel plans. (2) Hypoxemia Status: Acute Problem Specific Plan: Monitor Clinically Problem Text: 03/30 - tolerating no O2 at rest, nursing to cont to monitor. Enc ambulation in halls. 03/29/2016: tapered down to 2LNC requiring 4LNC. Will continue to taper down as patient's condition improves. (3) Diabetes mellitus type 2 in obese Status: Chronic Problem Specific Plan: Monitor Clinically (4) Depression Status: Chronic Problem Specific Plan: Monitor Clinically (5) Hyperlipidemia Status: Chronic Problem Specific Plan: Monitor Clinically (6) Hypertension Status: Chronic Problem Specific Plan: Monitor Clinically (7) Hypertensive heart disease without CHF Status: Chronic Problem Specific Plan: Monitor Clinically (8) Oral candidiasis Status: Acute Problem Text: Nystatin Swish and swallow. Encouraged to rinse after nebs. Plan / VTE VTE Prophylaxis Ordered?: Yes (Lovenox) Subjective Review of Systems CC/HPI Pt is doing well. Feels his breathing continues to improve. He has no new concerns today. Working on tapering his Oxygen. General: Denies: Fatigue Constitutional: Denies: Chills, Fever Pulmonary: Denies: Cough, Dyspnea Cardiovascular: Denies: Chest Pain, Palpitations Gastrointestinal: Denies: Diarrhea, Nausea, Vomiting Neurological: Denies: Weakness Psych: Reports: Mood Normal Objective Physical Examination General Exam: Positive: Alert, No Acute Distress ENT Exam: Positive: Atraumatic, Mucous membr. moist/pink, Other ENT, Pharynx Normal Neck Exam: Positive: Supple Chest Exam: Positive: Diminished (improved aeration. no wheeze) Heart Exam: Positive: Normal S1, Normal S2, Rate Normal, Regular Rhythm Abdomen Exam: Positive: Normal bowel sounds, Soft Extremity Exam: Positive: Normal pulses Psych Exam: Positive: Mental status NL, Mood NL, Oriented x 3 Vital Signs/I&O Vital Signs Date Time Temp Pulse Resp B/P Pulse Ox O2 Delivery O2 Flow Rate FiO2 03/30/16 06:00 98.3 74 18 161/82 92 Room Air 03/30/16 00:47 2.0 I&O- Last 24 Hours up to 6 AM 03/30/16 06:00 Intake Total 1980 ml Output Total 1200 ml Balance 780 ml Laboratory Data Labs 24H Laboratory Tests 2 03/30/16 06:16: Anion Gap 10, Blood Urea Nitrogen 26H, Creatinine 1.00, Sodium Level 142, Potassium Level 3.2L, Chloride Level 101, Carbon Dioxide Level 31, Calcium Level 8.5L, Glomerular Filtration Rate > 60.0 CBC/BMP Laboratory Tests 03/30/16 06:16 Calcium Level 8.5 L, Red Blood Count 3.17 L, Mean Corpuscular Volume 100.8 H, Mean Corpuscular Hemoglobin 34.7 H, Mean Corpuscular Hemoglobin Concent 34.5, Red Cell Distribution Width 12.2 Microbiology Microbiology 03/26/16 Respiratory Virus Panel (PCR) ([facility]) - Final, Complete 03/26/16 MRSA Screen - Final, Complete JAMAR MOLINA PA-C Mar 30, 2016 08:47 LISA LOWRY MD Mar 30, 2016 13:59
[2016-03-30] MEDS ORDERED: POTASSIUM CHLORIDE 10 MEQ SR TABLET PO ONE (09:00)
[2016-03-30] MEDS: CHLORTHALIDONE 25 MG TAB PO SCH (10:16)
[2016-03-30 10:17] VITALS: BP 173/86
[2016-03-30] MEDS: guaiFENesin ER 600 MG TAB PO SCH ×2 (10:17→21:40)
[2016-03-30] MEDS: ASPIRIN 81 MG ENTERIC TAB PO SCH (10:17)
[2016-03-30] MEDS: SERTRALINE 100 MG TAB PO SCH (10:17)
[2016-03-30] MEDS: RAMIPRIL 5 MG CAP PO SCH (10:19)
[2016-03-30] MEDS: PANTOPRAZOLE 40MG TAB (PROTONIX) PO SCH (10:20)
[2016-03-30] MEDS: FLUTICASONE PROP 0.05% NASAL SPRAY 16 GM (FLONASE) SCH ×2 (10:20→21:40)
[2016-03-30] MEDS: ENOXAPARIN 40 MG/0.4 ML SYRINGE (J1650) SC SCH (10:20)
[2016-03-30 14:00] VITALS: BP 158/76
[2016-03-30] MEDS: ATORVASTATIN 20 MG TAB PO SCH (21:40)
[2016-03-30 22:00] VITALS: BP 161/88
[2016-03-30 23:00] VITALS: BP 143/74
[2016-03-31] MEDS: IPRATROPIUM 0.5MG/ALBUTEROL 2.5MG INH SOL UD 3ML (DUONEB)(J7620) NEB SCH ×4 (01:13→20:00)
[2016-03-31 06:00] VITALS: BP 173/93
[2016-03-31] MEDS: MOXIFLOXACIN 400 MG TAB PO SCH (06:25)
[2016-03-31] MEDS: methylPREDNISolone INJ 125 MG/2 ML VIAL (J2930) IV SCH (06:25)
[2016-03-31] MEDS: SYMBICORT 160/4.5MCG INHALER 6GM INH SCH ×2 (07:07→19:55)
[2016-03-31 07:24] LABS: MEAN CORPUSCULAR HEMOGLOBIN 33.4 pg (27.0-33.0); MEAN CORPUSCULAR HGB CONC 32.8 g/dl (32.0-36.5); MEAN CORPUSCULAR VOLUME 101.9 fl (80.0-96.0); RED CELL DISTRIBUTION WIDTH 13.3 % (11.5-14.5); WHITE BLOOD COUNT 12.8 K/mm3 (4.0-10.0)
[2016-03-31 07:37] LABS: ANION GAP 8 MEQ/L (8-16); BLOOD UREA NITROGEN 28 MG/DL (7-18); CALCIUM LEVEL 8.4 MG/DL (8.8-10.2); CARBON DIOXIDE LEVEL 33 MEQ/L (21-32); CHLORIDE LEVEL 102 MEQ/L (98-107); CREATININE FOR GFR 1.06 MG/DL (0.70-1.30); GLOMERULAR FILTRATION RATE > 60.0 (>49); GLUCOSE, FASTING 87 MG/DL (80-110); POTASSIUM SERUM 3.4 MEQ/L (3.5-5.1); SODIUM LEVEL 143 MEQ/L (136-145)
[2016-03-31] MEDS ORDERED: POTASSIUM CHLORIDE 10 MEQ SR TABLET PO ONE (08:15)
--- NOTE | 2016-03-31 08:30 | IPNPDOC ---
Assessment/Plan Date Seen The patient was seen on 03/31/16. Problems Problems: (1) COPD exacerbation Status: Acute Problem Specific Plan: Monitor Clinically Problem Text: D5 moxi-03/26/16 CXR s infiltrate Continue Solumedrol, Avelox, nebs Patient's friend states symptoms return when stopped prednisone after past hospitalizations. may consider longer steroid taper. 03/30 - D4 Avelox, will decrease solumedrol from 80 q8 to 60 q6, plan to change to po tomorrow, will require long, slow taper d/t h/o and travel plans. 03/31 - D5 Avelox, plan to change to oral Prednisone from Solumedrol. (2) Hypoxemia Status: Acute Problem Specific Plan: Monitor Clinically Problem Text: not on O2 at home 03/31 completely weaned from O2, doing well. 03/30 - tolerating no O2 at rest, nursing to cont to monitor. Enc ambulation in halls. 03/29/2016: tapered down to 2LNC . (3) Diabetes mellitus type 2 in obese Status: Chronic Problem Specific Plan: Monitor Clinically (4) Depression Status: Chronic Problem Specific Plan: Monitor Clinically (5) Hyperlipidemia Status: Chronic Problem Specific Plan: Monitor Clinically (6) Hypertension Status: Chronic Problem Specific Plan: Monitor Clinically (7) Hypertensive heart disease without CHF Status: Chronic Problem Specific Plan: Monitor Clinically (8) Oral candidiasis Status: Acute Problem Text: Nystatin Swish and swallow. Encouraged to rinse after nebs. Plan / VTE VTE Prophylaxis Ordered?: Yes (Lovenox) Subjective Review of Systems CC/HPI Pt without new concerns this morning. He slept well. He is not eager to go home today. General: Denies: Fatigue Constitutional: Denies: Chills, Fever Pulmonary: Reports: Dyspnea (improving), Denies: Cough Cardiovascular: Denies: Chest Pain, Palpitations Gastrointestinal: Denies: Diarrhea, Nausea, Vomiting Neurological: Denies: Weakness Psych: Reports: Mood Normal Objective Physical Examination General Exam: Positive: Alert, No Acute Distress ENT Exam: Positive: Atraumatic, Mucous membr. moist/pink, Other ENT, Pharynx Normal Neck Exam: Positive: Supple Chest Exam: Positive: Diminished (improved aeration. no wheeze) Heart Exam: Positive: Normal S1, Normal S2, Rate Normal, Regular Rhythm Abdomen Exam: Positive: Normal bowel sounds, Soft Extremity Exam: Positive: Normal pulses Psych Exam: Positive: Mental status NL, Mood NL, Oriented x 3 Vital Signs/I&O Vital Signs Date Time Temp Pulse Resp B/P Pulse Ox O2 Delivery O2 Flow Rate FiO2 03/31/16 07:40 Room Air 03/31/16 06:00 97.1 75 16 173/93 91 03/30/16 00:47 2.0 I&O- Last 24 Hours up to 6 AM 03/31/16 06:00 Intake Total 1860 ml Output Total 1125 ml Balance 735 ml Laboratory Data Labs 24H Laboratory Tests 2 03/30/16 20:37: Bedside Glucose (Misc Panel) 142H 03/31/16 06:55: Anion Gap 8, Blood Urea Nitrogen 28H, Creatinine 1.06, Sodium Level 143, Potassium Level 3.4L, Chloride Level 102, Carbon Dioxide Level 33H, Calcium Level 8.4L, Glomerular Filtration Rate > 60.0 CBC/BMP Laboratory Tests 03/31/16 06:55 Calcium Level 8.4 L, Red Blood Count 3.48 L, Mean Corpuscular Volume 101.9 H, Mean Corpuscular Hemoglobin 33.4 H, Mean Corpuscular Hemoglobin Concent 32.8, Red Cell Distribution Width 13.3 FSBS Laboratory Tests Test 03/30/16 20:37 Range/Units Bedside Glucose (Misc Panel) 142 80-115 MG/DL Microbiology Microbiology 03/26/16 Respiratory Virus Panel (PCR) ([facility]) - Final, Complete 03/26/16 MRSA Screen - Final, Complete JAMAR MOLINA PA-C Mar 31, 2016 08:30 Alex Peraza M.D. Mar 31, 2016 15:35
[2016-03-31] MEDS: FLUTICASONE PROP 0.05% NASAL SPRAY 16 GM (FLONASE) SCH ×2 (09:40→20:47)
[2016-03-31] MEDS: PANTOPRAZOLE 40MG TAB (PROTONIX) PO SCH (09:42)
[2016-03-31] MEDS: guaiFENesin ER 600 MG TAB PO SCH ×2 (09:42→20:47)
[2016-03-31] MEDS: SERTRALINE 100 MG TAB PO SCH (09:42)
[2016-03-31] MEDS: CHLORTHALIDONE 25 MG TAB PO SCH (09:42)
[2016-03-31] MEDS: RAMIPRIL 5 MG CAP PO SCH (09:42)
[2016-03-31] MEDS: ASPIRIN 81 MG ENTERIC TAB PO SCH (09:42)
[2016-03-31] MEDS: ENOXAPARIN 40 MG/0.4 ML SYRINGE (J1650) SC SCH (09:43)
[2016-03-31] MEDS ORDERED: predniSONE 20 MG TAB PO ONE (13:00)
[2016-03-31 14:00] VITALS: BP 152/78
[2016-03-31] MEDS: ATORVASTATIN 20 MG TAB PO SCH (20:47)
[2016-03-31 22:00] VITALS: BP 190/96
[2016-03-31 23:00] VITALS: BP 148/62
[2016-04-01] MEDS: IPRATROPIUM 0.5MG/ALBUTEROL 2.5MG INH SOL UD 3ML (DUONEB)(J7620) NEB SCH ×2 (00:40→07:56)
[2016-04-01 06:00] VITALS: BP 173/87
[2016-04-01] MEDS: MOXIFLOXACIN 400 MG TAB PO SCH (06:25)
[2016-04-01 07:25] LABS: MEAN CORPUSCULAR HEMOGLOBIN 33.4 pg (27.0-33.0); MEAN CORPUSCULAR HGB CONC 33.9 g/dl (32.0-36.5); MEAN CORPUSCULAR VOLUME 98.6 fl (80.0-96.0); RED CELL DISTRIBUTION WIDTH 12.2 % (11.5-14.5); WHITE BLOOD COUNT 12.7 K/mm3 (4.0-10.0)
[2016-04-01 07:40] LABS: ANION GAP 8 MEQ/L (8-16); BLOOD UREA NITROGEN 27 MG/DL (7-18); CARBON DIOXIDE LEVEL 34 MEQ/L (21-32); CHLORIDE LEVEL 102 MEQ/L (98-107); CREATININE FOR GFR 1.03 MG/DL (0.70-1.30); GLOMERULAR FILTRATION RATE > 60.0 (>49); GLUCOSE, FASTING 91 MG/DL (80-110); POTASSIUM SERUM 3.6 MEQ/L (3.5-5.1); SODIUM LEVEL 144 MEQ/L (136-145)
[2016-04-01] MEDS: SYMBICORT 160/4.5MCG INHALER 6GM INH SCH (07:56)
[2016-04-01] MEDS: ENOXAPARIN 40 MG/0.4 ML SYRINGE (J1650) SC SCH (09:00)
[2016-04-01] MEDS ORDERED: predniSONE 20 MG TAB PO SCH (09:00)
[2016-04-01] MEDS: guaiFENesin ER 600 MG TAB PO SCH (09:46)
[2016-04-01] MEDS: ASPIRIN 81 MG ENTERIC TAB PO SCH (09:46)
[2016-04-01 09:47] VITALS: BP 173/87
[2016-04-01] MEDS: PANTOPRAZOLE 40MG TAB (PROTONIX) PO SCH (09:47)
[2016-04-01] MEDS: CHLORTHALIDONE 25 MG TAB PO SCH (09:47)
[2016-04-01] MEDS: SERTRALINE 100 MG TAB PO SCH (09:47)
[2016-04-01] MEDS: FLUTICASONE PROP 0.05% NASAL SPRAY 16 GM (FLONASE) SCH (09:47)
[2016-04-01] MEDS: RAMIPRIL 5 MG CAP PO SCH (09:47)
[2016-04-01] MEDS ORDERED: IPRASOL4 NEB (09:52)
[2016-04-01] MEDS ORDERED: FLUTISP (09:52)
[2016-04-01] MEDS ORDERED: ALB2.5NEB NEB (09:52)
[2016-04-01] MEDS ORDERED: AVEL1TAB PO (09:53)
[2016-04-01] MEDS ORDERED: DELT1TAB PO (09:53)
[2016-04-01] MEDS ORDERED: SYMB16INH INH (09:53)
[2016-04-01] MEDS ORDERED: MUCI600T34 PO (09:53)
--- NOTE | 2016-04-01 10:52 | DSES ---
DATE OF ADMISSION: 03/26/2016 DATE OF DISCHARGE: PRIMARY CARE PROVIDER: Dr. Aubrey Alcantara ATTENDING PHYSICIAN: Dr. Mikaela Sarabia HISTORY OF PRESENT ILLNESS: Juvenal Madrid is a 66-year-old male patient who follows with Dr. Alcantara who was recently hospitalized for chronic obstructive pulmonary disease (COPD). He followed up with Dr. Alcantara in the office on 03/26/2016 and felt that he was not improving. He was hypoxemic in the office and was admitted with COPD exacerbation. He had been on metoprolol which was discontinued. He remained on Ramipril and chlorthalidone during the course of his hospitalization. Symbicort was added during the course of his hospitalization for his COPD. He was initially placed on supplemental oxygen, but was able to eventually taper off of this. He had been tolerating room air for the last couple of days without any problems. He had been started on IV Solu-Medrol, which was changed to oral prednisone. He was continued on Avelox. He was continued on Nebs. Overall improved. He will be discharged home on five more days of oral Avelox and a longer prednisone taper. The patient was seen by pulmonary during the course of his hospitalization. The patient will be flying to [place] in several days. He was ambulated off oxygen on the day of discharge and according to the guidelines as discussed with Dr. Alcantara that the patient would need to be on supplemental oxygen while flying if his oxygen saturations dropped below 84%. Generally while ambulating his oxygen saturations were 90-91% and he did drop as low as 87% for a brief period, but generally between 90-91% during the six minutes of ambulation off of supplemental oxygen. Therefore, it is felt the patient does not need additional supplemental oxygen for his flight. PHYSICAL EXAM: VITALS: Temperature 98.9. Pulse 73. Respiratory rate 16. Blood pressure 173/87. Pulse oximetry 92%. GENERAL: The patient is alert, in no acute distress. No respiratory distress. CHEST: Clear to auscultation bilaterally. HEART: Regular rate and rhythm. ABDOMEN: Positive bowel sounds. Soft. Nontender. EXTREMITIES: No edema. LABS: WBC 12.7, hemoglobin 11.2, hematocrit 33.0, platelets 389. Sodium 144, potassium 3.6, chloride 102, carbon dioxide 34, BUN 27, creatinine 1.03, glucose 91, calcium 9.0. MEDICATIONS: - prednisone 40 mg daily for 3 days, then 20 mg daily for 3 days, then 10 mg daily for 4 days, then stop - Avelox 400 mg by mouth daily times 5 days - Symbicort 160/4.5 mcg 2 puffs twice a day - chlorthalidone 25 mg by mouth daily - Altace 10 mg by mouth daily - aspirin 81 mg by mouth daily - Zoloft 100 mg by mouth daily - Flonase 2 sprays each nostril daily - Lipitor 40 mg by mouth at bedtime - DuoNeb every 6 hours - albuterol Nebs hourly as needed for shortness of breath - guaifenesin 600 mg by mouth twice a day for 10 days DISCHARGE INSTRUCTIONS: Followup with Dr. Alcantara once back from trip. Diet is as no added salt. Activity is as tolerated. DISCHARGE DIAGNOSES: 1. Chronic obstructive pulmonary disease exacerbation. 2. Hypoxemia. 3. Diabetes mellitus type 2. 4. Depression. 5. Hyperlipidemia. 6. Hypertension. 7. Hypertensive heart disease.
== END 2016-04-01 13:35 | disposition home or self-care (01) | DRG 191 ==
LOC: M ICU 10:53 → M MS5PR 17:11
PROVIDERS: ADMIT Family Medicine; ATTEND Family Medicine
DX: J44.1 Chronic obstructive pulmonary disease with (acute) exacerbation (principal); B37.0 Candidal stomatitis; I11.9 Hypertensive heart disease without heart failure; E78.00 Pure hypercholesterolemia, unspecified; K21.9 Gastro-esophageal reflux disease without esophagitis; N40.0 Benign prostatic hyperplasia without lower urinary tract symptoms; E66.9 Obesity, unspecified; E21.0 Primary hyperparathyroidism; F32.9 Major depressive disorder, single episode, unspecified; E55.9 Vitamin D deficiency, unspecified; E11.9 Type 2 diabetes mellitus without complications; Z87.891 Personal history of nicotine dependence; R09.02 Hypoxemia; Z79.82 Long term (current) use of aspirin; Z79.899 Other long term (current) drug therapy; Z68.32 Body mass index [BMI] 32.0-32.9, adult; E78.5 Hyperlipidemia, unspecified

== ENCOUNTER → 2016-07-02 | Outpatient (REF) | payer MEDICARE, OTHER ==
[~2016-07-02] MED LIST changes: +ALB2.5NEB NEB; +AVEL1TAB PO; -COLA100C PO; +COLA100C3 PO; +FLUTISP; +IPRASOL4 NEB; -SERTRALINE 100 MG TAB PO SCH; +SPIR12.9 INH; +SYMB16INH INH
[2016-07-02 21:20] LABS: MEAN CORPUSCULAR HEMOGLOBIN 33.2 pg (27.0-33.0); MEAN CORPUSCULAR HGB CONC 32.9 g/dl (32.0-36.5); RED CELL DISTRIBUTION WIDTH 12.3 % (11.5-14.5)
[2016-07-02 21:27] LABS: ALT/SGPT 27 U/L (12-78); ANION GAP 5 MEQ/L (8-16); AST/SGOT 15 U/L (15-37); BLOOD UREA NITROGEN 28 MG/DL (7-18); CALCIUM LEVEL 9.4 MG/DL (8.8-10.2); CARBON DIOXIDE LEVEL 35 MEQ/L (21-32); CHLORIDE LEVEL 102 MEQ/L (98-107); CREATININE FOR GFR 0.93 MG/DL (0.70-1.30); GLOMERULAR FILTRATION RATE > 60.0 (>49); GLUCOSE, FASTING 104 MG/DL (80-110); POTASSIUM SERUM 4.1 MEQ/L (3.5-5.1); SODIUM LEVEL 142 MEQ/L (136-145)
[2016-07-02 21:28] LABS: ALBUMIN 3.9 GM/DL (3.2-5.2); ALBUMIN/GLOBULIN RATIO 1.11 (1.00-1.93); ALKALINE PHOSPHATASE 63 U/L (45-117); BILIRUBIN,TOTAL 0.2 MG/DL (0.2-1.0); CHOLESTEROL LEVEL 192 MG/DL (<200); TOTAL PROTEIN 7.4 GM/DL (6.4-8.2); TRIGLYCERIDES LEVEL 89 MG/DL (<150)
== END ==
LOC: M SFHCADAM 14:46
PROVIDERS: ATTEND Family Medicine
DX: J44.9 Chronic obstructive pulmonary disease, unspecified (principal); F32.9 Major depressive disorder, single episode, unspecified; I11.9 Hypertensive heart disease without heart failure; R73.01 Impaired fasting glucose; E78.2 Mixed hyperlipidemia

== ENCOUNTER 2016-09-05 20:27 | Emergency (ER) | payer MEDICARE, BC, OTHER ==
[~2016-09-05 20:27] MED LIST changes: -ACET-654 PO; +ACET1TAB17 PO; -ALTA10CA3 PO; +ALTA1CAP4 PO; -ATOR40TA PO; +ATOR40TA75 PO; -AVEL1TAB PO; +AVEL1TAB3 PO; +AZIT-12 PO; -AZIT250T3 PO; -COLA100C3 PO; +COLA100C5 PO; +DOXY100T2 PO; -DOXY10CA PO; -METO50TA2 PO; +METO50TA7 PO; -MUCI600T34 PO; +MUCI600T37 PO; -PROA1AER INH; +PROAAER10 INH
[2016-09-05] MEDS ORDERED: LOPR1TAB6 PO (20:36)
[2016-09-05] MEDS ORDERED: SYMB16INH INH (20:36)
[2016-09-05] MEDS ORDERED: METF-414 PO (20:36)
[2016-09-05 21:28] VITALS: BP 139/77
[2016-09-05] MEDS ORDERED: NS 500 ML IV ONE (22:00)
[2016-09-05 22:01] LABS: BASO # 0.1 K/mm3 (0.0-0.2); BASO % 1.4 % (0.0-1.0); EOS # 0.9 K/mm3 (0.0-0.50); EOS % 10.2 % (0.0-3.0); LARGE UNSTAINED CELL # 0.2 K/mm3 (0.0-0.4); LARGE UNSTAINED CELL % 2.3 % (0.0-4.0); LYMPH # 1.7 K/mm3 (1.5-4.5); LYMPH % 18.1 % (24.0-44.0); MEAN CORPUSCULAR HGB CONC 33.7 g/dl (32.0-36.5); MONO # 0.6 K/mm3 (0.0-0.8); MONO % 7.5 % (0.0-5.0); NEUTROPHILS # 5.1 K/mm3 (1.8-7.7); NEUTROPHILS % 60.5 % (36.0-66.0); PLATELET COUNT, AUTOMATED 409 k/mm3 (150-450); RED CELL DISTRIBUTION WIDTH 12.8 % (11.5-14.5); WHITE BLOOD COUNT 8.5 K/mm3 (4.0-10.0)
[2016-09-05 22:13] LABS: ALBUMIN/GLOBULIN RATIO 1.18 (1.00-1.93); ALKALINE PHOSPHATASE 116 U/L (45-117); ALT/SGPT 28 U/L (12-78); AST/SGOT 17 U/L (15-37); BILIRUBIN,DIRECT < 0.1 MG/DL (0.0-0.2); BLOOD UREA NITROGEN 27 MG/DL (7-18); CALCIUM LEVEL 9.1 MG/DL (8.8-10.2); CARBON DIOXIDE LEVEL 28 MEQ/L (21-32); CHLORIDE LEVEL 98 MEQ/L (98-107); CREATININE FOR GFR 0.97 MG/DL (0.70-1.30); GLOMERULAR FILTRATION RATE > 60.0 (>49); GLUCOSE, FASTING 90 MG/DL (80-110); TOTAL PROTEIN 7.4 GM/DL (6.4-8.2)
[2016-09-05 22:16] LABS: ANION GAP 10 MEQ/L (8-16); BILIRUBIN,TOTAL 0.4 MG/DL (0.2-1.0); SODIUM LEVEL 136 MEQ/L (136-145)
[2016-09-05 22:17] LABS: POTASSIUM SERUM 2.9 MEQ/L (3.5-5.1)
[2016-09-05] MEDS ORDERED: GASTROGRAFIN SOLUTION 30ML (Q9963) As Ordered ONE (22:21)
[2016-09-05 22:25] LABS: MAGNESIUM LEVEL 1.8 MG/DL (1.8-2.4)
[2016-09-05] MEDS ORDERED: POTASSIUM CHLORIDE 10 MEQ SR TABLET PO ONE (22:30)
--- NOTE | 2016-09-05 23:00 | REPUSA ---
Clinical history: Right upper quadrant pain. Findings: The pancreas is limited in visualization secondary to overlying bowel gas, but appears tristan sly unremarkable. The liver demonstrates increased echotexture and echogenicity, with no mass lesions . The gallbladder is unremarkable. The common bile duct measures 4 mm and is within normal limits. Th e right kidney measures 11.8 cm in length. There is a 1.1 cm simple cyst in the medial right kidney. There is no ascites. Impression: 1. Fatty infiltration of the liver. 2. Simple right renal cyst.
--- NOTE | 2016-09-06 00:30 | REPUSA ---
CT of the abdomen and pelvis without contrast Clinical statement: Pain. Technique: Multiple axial CT images were obtained from the base of the lungs to the floor of the pelv is utilizing 5 mm axial slices after administration of oral contrast. Coronal and sagittal reconstruc tions were also obtained. Comparison: None. Findings: Chest: The visualized lung bases are clear. Abdomen: The kidneys are normal in size bilaterally. There is aslightly complex low attenuation lesio n in the anterior left kidney measuring 2.7 x 1.9 cm. There is no evidence of hydronephrosis or nephr olithiasis. The liver, spleen, pancreas, gallbladder and adrenal glands are unremarkable. The aorta d emonstrates normal caliber and contour. There is no abdominal lymphadenopathy or ascites. Pelvis: The bowel is unremarkable, with no obstructive or inflammatory changes.. The appendix is norm al. The urinary bladder is within normal limits. There is no pelvic lymphadenopathy or ascites. The prostate gland measures 5.2 x 4.1 cm. Bones: There are no suspicious osseous abnormalities seen. Impression: 1. No evidence of hydronephrosis or nephrolithiasis. 2. No obstructive or inflammatory bowel changes. 3. Slightly complex low attenuation lesion in the left kidney likely representing a cyst. If there is further clinical concern, ultrasound is recommended. 4. Enlarged prostate.
[2016-09-06] MEDS ORDERED: DICY20TA11 PO (00:59)
[2016-09-06] MEDS ORDERED: POTASSIUM CHLORIDE 10 MEQ SR TABLET PO ONE (01:45)
== END 2016-09-06 01:57 | disposition home or self-care (01) ==
LOC: EDBD 20:27 → M ED 20:27
DX: K80.50 Calculus of bile duct without cholangitis or cholecystitis without obstruction (principal); I10 Essential (primary) hypertension; E11.9 Type 2 diabetes mellitus without complications; K21.9 Gastro-esophageal reflux disease without esophagitis; Z87.891 Personal history of nicotine dependence; Z79.899 Other long term (current) drug therapy; Z79.82 Long term (current) use of aspirin; Z79.84 Long term (current) use of oral hypoglycemic drugs
CPT/HCPCS: 74176; 76705; 80048; 80076; 82550; 82553; 83690; 83735; 84484; 85025; 93041; 99284; G0480; Q9963

== ENCOUNTER → 2016-12-31 | Outpatient (CLI) | payer MEDICARE, OTHER ==
[~2016-12-31] MED LIST changes: +DICY20TA11 PO; +LOPR1TAB6 PO; +METF-414 PO
--- NOTE | 2016-12-31 16:31 | REP ---
PA and lateral chest: Comparisons are 03/26/2016 and 02/29/2016 The lung castellon are clear. Cardiac size is normal. The maddie, mediastinum, and bony thorax are unremarkable. Impression: There are no acute cardiopulmonary findings. Signed by Deni Elam MD 12/31/2016 04:22 P
== END ==
LOC: M ADAMS 15:26
PROVIDERS: ATTEND Physician Assistant
DX: J44.1 Chronic obstructive pulmonary disease with (acute) exacerbation (principal); J01.00 Acute maxillary sinusitis, unspecified; I11.9 Hypertensive heart disease without heart failure; E78.2 Mixed hyperlipidemia; E55.9 Vitamin D deficiency, unspecified; R73.01 Impaired fasting glucose
CPT/HCPCS: 71020; 80053; 80061; 82306; 83036; 85027; 96372; G0463; J1040

== ENCOUNTER → 2016-12-31 | Outpatient (REF) | payer MEDICARE, OTHER ==
[2016-12-31 20:27] LABS: MEAN CORPUSCULAR HGB CONC 33.5 g/dl (32.0-36.5); MEAN CORPUSCULAR VOLUME 98.6 fl (80.0-96.0); PLATELET COUNT, AUTOMATED 495 10^3/uL (150-450); RED CELL DISTRIBUTION WIDTH 12.7 % (11.5-14.5); WHITE BLOOD COUNT 10.2 10^3/uL (4.0-10.0)
[2016-12-31 20:41] LABS: ALBUMIN 4.3 GM/DL (3.2-5.2); ALBUMIN/GLOBULIN RATIO 1.26 (1.00-1.93); ALKALINE PHOSPHATASE 127 U/L (45-117); ALT/SGPT 29 U/L (12-78); ANION GAP 9 MEQ/L (8-16); AST/SGOT 14 U/L (15-37); BILIRUBIN,TOTAL 0.3 MG/DL (0.2-1.0); BLOOD UREA NITROGEN 26 MG/DL (7-18); CALCIUM LEVEL 10.3 MG/DL (8.8-10.2); CARBON DIOXIDE LEVEL 33 MEQ/L (21-32); CHLORIDE LEVEL 99 MEQ/L (98-107); CHOLESTEROL LEVEL 197 MG/DL (<200); CREATININE FOR GFR 1.13 MG/DL (0.70-1.30); GLOMERULAR FILTRATION RATE > 60.0 (>49); GLUCOSE, FASTING 104 MG/DL (80-110); SODIUM LEVEL 141 MEQ/L (136-145); TOTAL PROTEIN 7.7 GM/DL (6.4-8.2); TRIGLYCERIDES LEVEL 133 MG/DL (<150)
== END ==
LOC: M SFHCADAM 15:25
PROVIDERS: ATTEND Physician Assistant
DX: E78.2 Mixed hyperlipidemia (principal); J44.1 Chronic obstructive pulmonary disease with (acute) exacerbation; E55.9 Vitamin D deficiency, unspecified; R73.01 Impaired fasting glucose

== ENCOUNTER → 2017-05-06 | Outpatient (REF) | payer MEDICARE, OTHER ==
[2017-05-06 21:39] LABS: ANION GAP 10 MEQ/L (8-16); BLOOD UREA NITROGEN 21 MG/DL (7-18); CALCIUM LEVEL 9.6 MG/DL (8.8-10.2); CARBON DIOXIDE LEVEL 31 MEQ/L (21-32); CHLORIDE LEVEL 99 MEQ/L (98-107); CREATININE FOR GFR 1.06 MG/DL (0.70-1.30); GLOMERULAR FILTRATION RATE > 60.0 (>49); GLUCOSE, FASTING 90 MG/DL (70-100); POTASSIUM SERUM 4.1 MEQ/L (3.5-5.1); SODIUM LEVEL 140 MEQ/L (136-145)
[2017-05-06 21:44] LABS: ESTIMATED AVERAGE GLUCOSE 126 MG/DL (60-110)
== END ==
LOC: M SFHCADAM 15:49
DX: R73.01 Impaired fasting glucose (principal)
CPT/HCPCS: 83036

== ENCOUNTER → 2017-05-24 | Outpatient (REF) | payer MEDICARE, OTHER | LOC: M SFHCLERA 09:52 | DX: L85.9 Epidermal thickening, unspecified (principal); L83 Acanthosis nigricans | CPT/HCPCS: 88305 ==

== ENCOUNTER → 2017-06-07 | Outpatient (REF) | payer MEDICARE, OTHER | LOC: M SFHCLERA 12:05 | DX: D23.39 Other benign neoplasm of skin of other parts of face (principal) | CPT/HCPCS: 88305 ==

== ENCOUNTER 2017-06-28 05:55 | Day surgery (SDC) | payer MEDICARE, BC, OTHER ==
[2017-06-28] MEDS ORDERED: SLF 3 ML SYR IV ×4 (06:00)
[2017-06-28] MEDS: LIDOCAINE 3.5 % 1ML OPHTH TOPICAL GEL OU ×2 (06:30)
[2017-06-28] MEDS: PHENYLEPHRINE 2.5% OPHTH SOL 2ML OS ×2 (06:45)
[2017-06-28] MEDS: OFLOXACIN 0.3 % (OCUFLOX) OPTH SOL 5ML OS ×2 (06:48)
[2017-06-28] MEDS: TROPICAMIDE 1% OPHTH SOLN 2ML OS ×2 (06:50)
[2017-06-28 06:57] LABS: BEDSIDE GLUCOSE 130 MG/DL (80-115)
[2017-06-28] MEDS: CYCLOPENTOLATE 2% OPHTH SOLN 2ML BTL OS ×2 (06:57)
[2017-06-28] MEDS ORDERED: PHENYLEPHRINE HCL 10 % OPHTH. SOL 5ML OS ×2 (07:00)
[2017-06-28] MEDS ORDERED: MIDAZOLAM INJ 2 MG/2 ML VIAL (J2250) As Ordered ×2 (07:07)
[2017-06-28] MEDS ORDERED: fentaNYL 100 MCG/2 ML INJECTION (J3010) As Ordered ×2 (07:07)
[2017-06-28] MEDS: POVIDONE-IODINE 5% OPHTH PREP SOL 30ML As Ordered ×2 (07:48)
[2017-06-28] MEDS: BSS with VANC/TOB/EPI for EYE CASES IR ×2 (07:49)
[2017-06-28] MEDS: HEALON DUET (HEALON 10MG/ML 0.55ML & HEALON ENDOCOAT 30MG/ML 0.85ML) As Ordered ×2 (07:49)
[2017-06-28] MEDS: CEFUROXIME 1MG/0.1ML INTRACAMERAL INJ As Ordered ×2 (07:49)
[2017-06-28] MEDS: LIDOCAINE 1% SDV 5 ML VIAL As Ordered ×2 (07:49)
[2017-06-28] MEDS ORDERED: TOBRADEX OPHTH OINT 3.5 GM As Ordered ×2 (08:22)
[2017-06-28] MEDS: PILOCARPINE 4% OPHTH SOLN 15 ML As Ordered ×2 (08:27)
== END 2017-06-28 09:17 | disposition home or self-care (01) ==
LOC: M SDC 05:55
DX: H27.10 Unspecified dislocation of lens (principal); I10 Essential (primary) hypertension; E78.5 Hyperlipidemia, unspecified; K21.9 Gastro-esophageal reflux disease without esophagitis; F32.9 Major depressive disorder, single episode, unspecified; N40.0 Benign prostatic hyperplasia without lower urinary tract symptoms; Z79.51 Long term (current) use of inhaled steroids; Z79.899 Other long term (current) drug therapy; Z79.82 Long term (current) use of aspirin
CPT/HCPCS: 66825

== ENCOUNTER 2017-07-19 10:17 | Day surgery (SDC) | payer MEDICARE, BC, OTHER ==
[2017-07-19] MEDS ORDERED: NS 1,000 ML IV (10:30)
[2017-07-19] MEDS ORDERED: LIDOCAINE 2% INJ 100 MG/5 ML SDV (FOR ANES.) As Ordered (11:02)
[2017-07-19] MEDS ORDERED: PROPOFOL 200 MG/20 ML VIAL As Ordered (11:02)
== END 2017-07-19 13:17 | disposition home or self-care (01) ==
LOC: M OPP 10:17
DX: Z12.11 Encounter for screening for malignant neoplasm of colon (principal); K64.0 First degree hemorrhoids; K62.1 Rectal polyp; D12.0 Benign neoplasm of cecum; Z86.010 Personal history of colon polyps; I10 Essential (primary) hypertension; E78.5 Hyperlipidemia, unspecified; E03.9 Hypothyroidism, unspecified; J44.9 Chronic obstructive pulmonary disease, unspecified; M12.9 Arthropathy, unspecified; F32.9 Major depressive disorder, single episode, unspecified; E11.9 Type 2 diabetes mellitus without complications; K21.9 Gastro-esophageal reflux disease without esophagitis; R23.3 Spontaneous ecchymoses; N40.0 Benign prostatic hyperplasia without lower urinary tract symptoms; Z79.82 Long term (current) use of aspirin; Z79.899 Other long term (current) drug therapy; Z98.890 Other specified postprocedural states
CPT/HCPCS: 45385

== ENCOUNTER → 2017-12-07 | Outpatient (REF) | payer MEDICARE, BC, OTHER ==
[2017-12-07 20:02] LABS: HEMATOCRIT 39.1 % (42.0-52.0); HEMOGLOBIN 13.1 g/dl (13.5-17.5); MEAN CORPUSCULAR HEMOGLOBIN 33.5 pg (27.0-33.0); MEAN CORPUSCULAR HGB CONC 33.5 g/dl (32.0-36.5); PLATELET COUNT, AUTOMATED 472 10^3/uL (150-450); RED BLOOD COUNT 3.91 10^6/uL (4.30-6.10); RED CELL DISTRIBUTION WIDTH 12.4 % (11.5-14.5); WHITE BLOOD COUNT 8.8 10^3/uL (4.0-10.0)
[2017-12-07 20:26] LABS: ALBUMIN 4.2 GM/DL (3.2-5.2); ALBUMIN/GLOBULIN RATIO 1.31 (1.00-1.93); ALKALINE PHOSPHATASE 68 U/L (45-117); ALT/SGPT 34 U/L (12-78); ANION GAP 10 MEQ/L (8-16); AST/SGOT 15 U/L (7-37); BILIRUBIN,TOTAL 0.5 MG/DL (0.2-1.0); BLOOD UREA NITROGEN 28 MG/DL (7-18); CALCIUM LEVEL 9.6 MG/DL (8.8-10.2); CARBON DIOXIDE LEVEL 31 MEQ/L (21-32); CHLORIDE LEVEL 102 MEQ/L (98-107); CREATININE FOR GFR 1.02 MG/DL (0.70-1.30); GLOMERULAR FILTRATION RATE > 60.0 (>49); GLUCOSE, FASTING 95 MG/DL (70-100); POTASSIUM SERUM 3.9 MEQ/L (3.5-5.1); SODIUM LEVEL 143 MEQ/L (136-145); TOTAL PROTEIN 7.4 GM/DL (6.4-8.2)
[2017-12-07 20:29] LABS: ESTIMATED AVERAGE GLUCOSE 114 MG/DL (60-110); HEMOGLOBIN A1c 5.6 %
== END ==
LOC: M LABDRWAD 19:02
DX: R73.01 Impaired fasting glucose (principal); I11.9 Hypertensive heart disease without heart failure
CPT/HCPCS: 80053

== ENCOUNTER 2018-11-16 12:37 | Inpatient (IN) | payer MEDICARE, BC, OTHER ==
[~2018-11-16] VITALS: Ht 167.6 cm; Wt 91.6 kg
[~2018-11-16 12:37] MED LIST changes: -ACET1TAB17 PO; +ACET1TAB55 PO; +CHLO125TA; +FLON1SPR NARES; +IBUP200C25 PO; +IPRA0.00 NEB; -IPRASOL4 NEB; +METF10004 PO; +PROAAER10; +SERT-138 PO
[2018-11-16] MEDS ORDERED: CHOL100029 PO (13:14)
[2018-11-16] MEDS ORDERED: IPRATROPIUM 0.5MG/ALBUTEROL 2.5MG INH SOL UD 3ML (DUONEB)(J7620) NEB ONE (13:30)
[2018-11-16] MEDS ORDERED: ALBUTEROL SULFATE 2.5 MG/0.5 ML INH NEB SOLN INH ONE (13:30)
[2018-11-16] MEDS ORDERED: methylPREDNISolone INJ 125 MG/2 ML VIAL (J2930) IV ONE (13:30)
[2018-11-16 14:15] LABS: BASO # 0.2 10^3/uL (0.0-0.2); BASO % 1.4 % (0.0-1.0); EOS # 2.9 10^3/uL (0.0-0.5); HEMATOCRIT 38.9 % (42.0-52.0); HEMOGLOBIN 13.2 g/dl (13.5-17.5); LYMPH # 1.2 10^3/uL (1.5-5.0); LYMPH % 10.3 % (24.0-44.0); MEAN CORPUSCULAR HEMOGLOBIN 33.1 pg (27.0-33.0); MEAN CORPUSCULAR HGB CONC 33.9 g/dl (32.0-36.5); MEAN CORPUSCULAR VOLUME 97.5 fl (80.0-96.0); MONO # 0.8 10^3/uL (0.0-0.8); MONO % 6.9 % (0.0-5.0); NEUTROPHILS # 6.5 10^3/uL (1.5-8.5); NEUTROPHILS % 56.4 % (36.0-66.0); PLATELET COUNT, AUTOMATED 468 10^3/uL (150-450); RED BLOOD COUNT 3.99 10^6/uL (4.30-6.10); WHITE BLOOD COUNT 11.6 10^3/uL (4.0-10.0)
[2018-11-16 14:24] LABS: ABG BASE EXCESS 3.4 (-2.0-2.0); ABG HCO3 28.8 MEQ/L (22.0-26.0); ABG O2 SATURATION 93.1 % (95.0-99.0); ABG PARTIAL PRESSURE CO2 46.4 mmHg (35.0-45.0); ABG PARTIAL PRESSURE O2 69.1 mmHg (75.0-100.0); ABG STANDARD HCO3 27.4 MEQ/L (22.0-26.0); ABG TOTAL CO2 30.2 MEQ/L (23.0-31.0)
[2018-11-16 14:28] LABS: ALBUMIN 3.9 GM/DL (3.2-5.2); ALT/SGPT 36 U/L (12-78); BILIRUBIN,DIRECT 0.1 MG/DL (0.0-0.2); BILIRUBIN,TOTAL 0.4 MG/DL (0.2-1.0); BLOOD UREA NITROGEN 22 MG/DL (7-18); CALCIUM LEVEL 9.3 MG/DL (8.8-10.2); CARBON DIOXIDE LEVEL 31 MEQ/L (21-32); CHLORIDE LEVEL 98 MEQ/L (98-107); CK-MB VALUE MASS 4.1 NG/ML (<3.6); CPK CREATINE PHOSPHOKINASE 356 U/L (39-308); CREATININE FOR GFR 1.14 MG/DL (0.70-1.30); GLOMERULAR FILTRATION RATE > 60.0 (>49); GLUCOSE, FASTING 117 MG/DL (70-100); MB/CK RELATIVE INDEX 1.15 (< OR =4); NT-PRO BNP 21 PG/ML (<125); POTASSIUM SERUM 3.8 MEQ/L (3.5-5.1); SODIUM LEVEL 138 MEQ/L (136-145); TOTAL PROTEIN 7.4 GM/DL (6.4-8.2); TROPONIN I < 0.02 NG/ML (< 0.10)
[2018-11-16] MEDS ORDERED: MORPHINE 2 MG/ML 1ML VIAL (J2270) IV ONE (14:30)
--- NOTE | 2018-11-16 14:38 | REP ---
PORTABLE CHEST X-RAY: SINGLE VIEW. HISTORY: Dyspnea and cough. COMPARISON CHEST X-RAY: December 31, 2016 FINDINGS: Oxygen delivery tubing is seen. The lungs are somewhat hyperinflated but free of infiltrate. There is a 9 mm soft tissue nodular density in the right base which was not apparent previously. This may be a pulmonary nodule. There is mild interstitial fibrosis pattern in the bases. The heart is not enlarged. Aorta is calcific. IMPRESSION: Mild bibasilar interstitial fibrosis pattern. Hyperinflation. 9 mm new noncalcified nodular density in the right lung base. Recommend CT study of the chest. Electronically Signed by Seven Robles MD 11/16/2018 03:27 P
[2018-11-16 15:00] LABS: EOS % 24.7 % (0.0-3.0)
[2018-11-16] MEDS ORDERED: ISOVUE-370 76% 100ML VIAL (Q9967) As Ordered ONE (15:20)
[2018-11-16] MEDS ORDERED: NS 500 ML IV ONE (15:45)
[2018-11-16] MEDS ORDERED: CHLO25TA PO (16:32)
[2018-11-16] MEDS ORDERED: FLUTICASONE PROP 0.05% NASAL SPRAY 16 GM (FLONASE) NARES PRN (18:15)
[2018-11-16] MEDS ORDERED: IBUPROFEN 200 MG TAB PO PRN (18:15)
[2018-11-16] MEDS ORDERED: ACETAMINOPHEN TAB 650MG DOSE (2X325MG) PO PRN (18:15)
--- NOTE | 2018-11-16 18:57 | HPEPDOC ---
General Date of Admission Nov 16, 2018 at 18:06 Date of Service: Nov 16, 2018 Chief Complaint The patient is a 68-year-old male admitted with a reason for visit of Diabetes Mellitus Type 2 In Obese,Sob. Source: Patient, Family Exam Limitations: No limitations Timing/Duration: Day(s) Severity: Mild Associated Symptoms: Cough History of Present Illness This is a 68-year-old male with a history of COPD. He does not utilize oxygen at home. He developed shortness of breath over the past couple of days and came to the emergency room where he is found to have O2 sats of 88% on room air. Patient's greatest complaint is that he can't breathe through his nose. He is having cough but no fever. Additional complaint is that he had some sharp right-sided abdominal pain he describes as "knifelike". It has since resolved. Evaluation by CT scan did not reveal pulmonary embolus or gallstones. The patient denies any known exposures to anyone who has been ill. He does get flu and pneumonia shots but has not yet had his immunizations this year. Home Medications Scheduled Aspirin (Aspirin EC) 81 Mg Tabec, 81 MG PO DAILY, (Reported) Atorvastatin Calcium (Atorvastatin Calcium) 40 Mg Tab, 40 MG PO QHS, (Reported) Budesonide/Formoterol (Symbicort 160-4.5 Mcg Inhaler) 60 Puff/Inhaler Aers, 2 PUFF INH BID, (Reported) Chlorthalidone (Chlorthalidone) 25 Mg Tablet, 25 MG PO DAILY, (Reported) Metformin HCl (Metformin HCl) 1,000 Mg Tab, 1,000 MG PO DAILY, (Reported) Ramipril (Altace) 10 Mg Cap, 10 MG PO DAILY, (Reported) Sertraline HCl (Sertraline HCl) 100 Mg Tab, 100 MG PO DAILY, (Reported) Vitamin D (Vitamin D3) 1,000 Unit Tablet, 2,000 UNITS PO DAILY, (Reported) Scheduled PRN Acetaminophen (Acetaminophen) 325 Mg Tab, 650 MG PO Q4H PRN for PAIN, (Reported) Albuterol Sulfate (Proair Hfa) 108 Mcg/Act Aer, Q4HP PRN for SHORTNESS OF BREATH, (Reported) Fluticasone Propionate (Flonase Allergy Relief) 50 Mcg/Act Spr, 2 SPRAYS NARES DAILY PRN for CONGESTION, (Reported) Ibuprofen (Ibuprofen) 200 Mg Cap, 200 MG PO Q4HP PRN for PAIN, (Reported) Allergies Coded Allergies: No Known Allergies (Unverified , 11/16/18) Past Medical History Medical History Past medical history is remarkable for COPD, essential hypertension, iex-xwqiucs-ldjbfcojp diabetes mellitus, dyslipidemia, unspecified skin rashes. Surgical History Surgical history includes thyroidectomy, parathyroidectomy, cataract surgery, removal of nasal polyps. Family History Patient reports family history of bowel cancer and dyslipidemia. 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 moist/pink, Pharynx Normal, Other ENT (nasal congestion but no nasal drainage) Neck Exam: Positive: Supple; Negative: JVD, thyromegaly Chest Exam: Positive: Normal air movement, Other (patient has cough, but no active wheezing) Heart Exam: Positive: Rate Normal, Regular Rhythm, Normal S1, Normal S2; Negative: Murmurs, Rubs Telemetry: Positive: No significant arrhythmia Abdomen Exam: Positive: Normal bowel sounds, Soft, Other (patient has moderate central obesity, relative to his overall body habitus); Negative: Tenderness, Hepatospenomegaly Extremity Exam: Positive: Normal pulses; Negative: Clubbing, Cyanosis, Edema Skin Exam: Positive: Rash, Lesion (patient has a number of skin lesions resembling actinic keratoses and other types) Neuro Exam: Positive: Normal Speech, Normal Tone, Cranial Nerves 3-12 NL Psych Exam: Positive: Mental status NL, Mood NL Vital Signs Vital Signs Date Time Temp Pulse Resp B/P (MAP) Pulse Ox O2 Delivery O2 Flow Rate FiO2 11/16/18 17:37 90 91 Nasal Cannula 3.0 11/16/18 17:30 152/87 (108) 11/16/18 15:58 19 11/16/18 12:38 97.5 Laboratory Data Labs 24H Laboratory Tests 2 11/16/18 13:44: Immature Granulocyte % (Auto) 0.3, White Blood Count 11.6H, Red Blood Count 3 .99L, Hemoglobin 13.2L, Hematocrit 38.9L, Mean Corpuscular Volume 97.5H, Mean Corpuscular Hemoglobin 33.1H, Mean Corpuscular Hemoglobin Concent 33.9, Red Cell Distribution Width 12.0, Platelet Count 468H, Neutrophils (%) (Auto) 56.4, Lymphocytes (%) (Auto) 10.3L, Monocytes (%) (Auto) 6.9H, Eosinophils (%) (Auto) 24.7H, Basophils (%) (Auto) 1.4H, Neutrophils # (Auto) 6.5, Lymphocytes # (Auto) 1.2L, Monocytes # (Auto) 0.8, Eosinophils # (Auto) 2.9H, Basophils # (Auto) 0.2, Nucleated Red Blood Cells % (auto) 0.0, Anion Gap 9, Glomerular Filtration Rate > 60.0, Lactic Acid Level 2.1*H, Calcium Level 9.3, Aspartate Amino Transf (AST/SGOT) 20, Alanine Aminotransferase (ALT/SGPT) 36, Alkaline Phosphatase 111, Total Bilirubin 0.4, Direct Bilirubin 0.1, Total Creatine Kinase 356H, Creatine Kinase MB 4.1H, Creatine Kinase MB Relative Index 1.15, Troponin I < 0.02, SA-Ctv-U-Type Natriuretic Peptide 21, Total Protein 7.4, Albumin 3.9, Albumin/Globulin Ratio 1.11, Lipase 111, Thyroid Stimulating Hormone (TSH) 1.740 11/16/18 14:04: Blood Gas Bicarbonate Standard 27.4H, Arterial Blood pH 7.410, Arterial Blood Partial Pressure CO2 46.4H, Arterial Blood Partial Pressure O2 69.1L, Arterial Blood Total CO2 30.2, Arterial Blood HCO3 28.8H, Arterial Blood Base Excess 3.4H, Arterial Blood Oxygen Saturation 93.1L 11/16/18 18:09: CBC/BMP Laboratory Tests 11/16/18 13:44 Red Blood Count 3.99 L, Mean Corpuscular Volume 97.5 H, Mean Corpuscular Hemoglobin 33.1 H, Mean Corpuscular Hemoglobin Concent 33.9, Red Cell Distribution Width 12.0, Neutrophils (%) (Auto) 56.4, Lymphocytes (%) (Auto) 10.3 L, Monocytes (%) (Auto) 6.9 H, Eosinophils (%) (Auto) 24.7 H, Basophils (%) (Auto) 1.4 H, Neutrophils # (Auto) 6.5, Lymphocytes # (Auto) 1.2 L, Monocytes # (Auto) 0.8, Eosinophils # (Auto) 2.9 H, Basophils # (Auto) 0.2 Microbiology Microbiology 11/16/18 Blood Culture, Received Pending 11/16/18 Blood Culture, Received Pending Assessment/Plan 1. COPD Patient is slightly hypoxic. He is making use of oxygen at 3 L/m; he is not on O2 at home. He is not having active wheezing. Plans are to treat him with nebulization treatments. I will hold antibiotics for now. I will also hold steroids for now. Patient appears to have an upper respiratory infection and so I will obtain a respiratory panel. 2. Abdominal pain. Abdominal pain appears to be resolved for now. This may have been an episode of biliary colic. Enzymes are normal, bilirubin is normal. Imaging is also normal. We will continue to monitor. 3. Kvq-hkldxin-gkqfnqljy diabetes mellitus. We are able to continue the patient's metformin at this time and will also add sliding scale insulin for glycemic control. 4. Hypertension. Patient will continue on his usual home medication regimen for now. 5. Alcohol use. Patient does have substantial history of alcohol consumption. We will need to maintain a low threshold for alcohol withdrawal. Plan / VTE VTE Prophylaxis Ordered?: Yes (subcutaneous heparin) Plan Diet: Continue Current Activity: Continue Current Respiratory: Increase Oxygen, Other Respiratory (albuterol nebulization treatment) Diagnostics: Repeat Labs in AM, Other Diagnostics (obtain respiratory panel) Anticipated Discharge: Home TRACEY SNIDER MD Nov 16, 2018 18:57
[2018-11-16] MEDS ORDERED: GLUCOSE 4 GM CHEW TABLET PO PRN (19:00)
[2018-11-16] MEDS ORDERED: DEXTROSE 50% 50 ML SYRINGE IV PRN (19:00)
[2018-11-16] MEDS ORDERED: GLUCAGON FOR INJ 1 MG VIAL (J1610) SC PRN (19:00)
--- NOTE | 2018-11-16 19:14 | REP ---
CT chest with IV contrast: History: Further evaluation right lung nodule. Comparison chest CT study January 19, 2016. CT contrast dose: 75 ml of intravenous Isovue 370 is administered. There is a band-like area of segmental discoid atelectasis in the right middle lobe adjacent the mediastinum. No pulmonary nodule is appreciated. No other infiltrate or atelectasis is seen. No pleural or pericardial effusion is appreciated. There is heavy vascular calcification in the distribution of the left coronary artery. There are scattered subcarinal, AP window, and pretracheal lymph nodes and normal in size. These are slightly larger than on that [address] study but still within normal size range. There is no evidence of pulmonary embolism or aortic dissection or aneurysm. No adrenal lesion is seen. There is diffuse fatty infiltration of the liver. The visualized upper abdominal structures are otherwise unremarkable. There are small cortical cysts affecting the right kidney. Impression: Segmental atelectasis right middle lobe. No pulmonary nodule is appreciated. Otherwise no acute disease. Electronically Signed by Seven Robles MD 11/17/2018 07:52 A
--- NOTE | 2018-11-16 19:15 | REP ---
CT abdomen and pelvis with IV but without oral contrast: History: Right upper quadrant pain. Comparison CT study is from September 05, 2016. CT contrast dose: 75 ml of intravenous Isovue [address] findings: There is mild diffuse fatty infiltration of the liver. No abnormalities noted in the gallbladder. The spleen is normal in size homogeneous in texture. Pancreas is unremarkable. No adrenal lesion is seen. There are cortical cysts affecting both kidneys. The largest of these is in the lower pole on the left. This cyst measures 3.3 cm in greatest diameter. No hydronephrosis is seen. No retroperitoneal mass or adenopathy is noted. There is a normal appendix in the right retrocecal mid abdomen. There is no evidence of free intraperitoneal air or abnormal fluid collection. Urinary bladder, seminal vesicles, and prostate are unremarkable. No abdominal wall defect is seen. No bony destructive lesion is appreciated. Impression: 1. Diffuse fatty infiltration of the liver. 2. Bilateral renal cortical cysts. 3. Normal appendix. 4. Vascular calcification. Electronically Signed by Seven Robles MD 11/17/2018 07:52 A
[2018-11-16 20:18] VITALS: BP 139/83
[2018-11-16] MEDS ORDERED: ATORVASTATIN 20 MG TAB PO SCH (21:00)
[2018-11-16] MEDS ORDERED: HumaLOG INSULIN (NovoLOG) PER UNIT SC SCH (21:00)
[2018-11-16 22:00] VITALS: BP 136/85
[2018-11-16] MEDS: SYMBICORT 160/4.5MCG INHALER 6GM INH SCH (23:10)
[2018-11-17] MEDS: ALBUTEROL SULFATE 2.5 MG/0.5 ML INH NEB SOLN NEB PRN ×3 (00:47→13:08)
[2018-11-17 06:00] VITALS: BP 118/53
[2018-11-17 06:06] LABS: HEMATOCRIT 34.6 % (42.0-52.0); HEMOGLOBIN 11.7 g/dl (13.5-17.5); MEAN CORPUSCULAR HEMOGLOBIN 32.6 pg (27.0-33.0); MEAN CORPUSCULAR HGB CONC 33.8 g/dl (32.0-36.5); MEAN CORPUSCULAR VOLUME 96.4 fl (80.0-96.0); PLATELET COUNT, AUTOMATED 439 10^3/uL (150-450); RED BLOOD COUNT 3.59 10^6/uL (4.30-6.10); WHITE BLOOD COUNT 10.9 10^3/uL (4.0-10.0)
[2018-11-17] MEDS: HEPARIN SOD (PORCINE) 5000 UNITS/ML VIAL SQ SCH ×2 (06:09→13:56)
[2018-11-17 06:24] LABS: BLOOD UREA NITROGEN 22 MG/DL (7-18); CALCIUM LEVEL 8.8 MG/DL (8.8-10.2); CARBON DIOXIDE LEVEL 30 MEQ/L (21-32); CHLORIDE LEVEL 101 MEQ/L (98-107); GLOMERULAR FILTRATION RATE > 60.0 (>49); GLUCOSE, FASTING 128 MG/DL (70-100); POTASSIUM SERUM 3.4 MEQ/L (3.5-5.1); SODIUM LEVEL 139 MEQ/L (136-145)
--- NOTE | 2018-11-17 07:23 | ECGEPIP ---
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
[2018-11-17] MEDS: SYMBICORT 160/4.5MCG INHALER 6GM INH SCH (07:29)
[2018-11-17] MEDS ORDERED: metFORMIN (GLUCOPHAGE) 1000 MG TABLET PO SCH (08:00)
[2018-11-17 08:39] VITALS: BP 116/71
[2018-11-17] MEDS: HumaLOG INSULIN (NovoLOG) PER UNIT SC SCH ×2 (08:40→12:00)
[2018-11-17] MEDS ORDERED: VITAMIN D 1,000 INTERNATIONAL UNITS TABLET PO SCH (09:00)
[2018-11-17] MEDS ORDERED: ramipriL 5 MG CAP PO SCH (09:00)
[2018-11-17] MEDS ORDERED: SERTRALINE 100 MG TAB PO SCH (09:00)
[2018-11-17] MEDS ORDERED: CHLORTHALIDONE 25 MG TAB PO SCH (09:00)
[2018-11-17] MEDS ORDERED: ASPIRIN 81 MG ENTERIC TAB PO SCH (09:00)
[2018-11-17] MEDS ORDERED: AMOX500T PO (09:07)
[2018-11-17] MEDS ORDERED: ALB2.5NEB NEB (09:07)
[2018-11-17 14:00] VITALS: BP 123/73
--- NOTE | 2018-11-17 19:37 | DSES ---
DATE OF ADMISSION: 11/16/2018 DATE OF DISCHARGE: 11/17/2018 PRIMARY CARE PROVIDER: Dr. Aubrey Alcantara ATTENDING PHYSICIAN: Dr. Aubrey Alcantara HISTORY: This is a 68-year-old male who presented to [facility] complaining of nasal congestion with occasional increased shortness of breath. He stated that he had been unable to breathe out of his nose for the last couple of days. He was noted in the emergency room to have low oxygen saturations and therefore was placed on three liters of oxygen via nasal cannula and hospitalist was called for admission. They admitted the patient to the hospital for acute hypoxia. The patient underwent a CT scan to rule out pulmonary embolism as well as pneumonia. The patient really does not have any respiratory complaints other than nasal congestion and at this point, he states he is moving his nasal secretions better. He does note that they are thick and green, however. He denies any fevers or chills. He has an intermittent cough. He feels as though he does in fact have an upper respiratory infection with a little bit of fatigue, although he states that his diet is adequate. I have asked the nurses this morning to attempt to wean the patient's oxygen. We will then further decide whether he needs to be discharged home with oxygen. DISCHARGE DIAGNOSES: Include: 1. Acute hypoxia. 2. Acute sinusitis. 3. Chronic obstructive pulmonary disease (COPD). 4. History of nicotine dependence. 5. Morbid obesity. 6. Diabetes mellitus, type 2. DISCHARGE MEDICATIONS: Include: - albuterol sulfate 2.5 mg inhaled via nebulizer every four hours as needed for shortness of breath or cough - amoxicillin 500 mg by mouth three times a day x10 days - acetaminophen 650 mg every four hours as needed for pain - aspirin 81 mg daily - atorvastatin 40 mg by mouth at bedtime - Symbicort 160/4.5 two puffs inhaled twice daily - chlorthalidone 25 mg daily - Flonase nasal spray two sprays intranasally daily as needed for congestion - ibuprofen 200 mg every four hours as needed for pain - metformin 1000 mg by mouth daily - Altace 10 mg by mouth daily - sertraline 100 mg daily - vitamin D 2000 units by mouth daily DISCHARGE PLAN: Followup with his primary care provider, Dr. Alcantara, in one week. Activity should be as tolerated. Diet should be consistent-carbohydrate.
[2019-01-19] MEDS ORDERED: PRED20TA PO (07:57)
== END 2018-11-17 14:50 | disposition home or self-care (01) | DRG 206 ==
LOC: M ED 12:37 → M ED INP 18:06 → M MS5PR 20:14
PROVIDERS: ADMIT Internal Medicine; ATTEND Family Medicine
DX: R09.02 Hypoxemia (principal); J44.9 Chronic obstructive pulmonary disease, unspecified; I10 Essential (primary) hypertension; E11.9 Type 2 diabetes mellitus without complications; J01.90 Acute sinusitis, unspecified; E78.5 Hyperlipidemia, unspecified; E89.2 Postprocedural hypoparathyroidism; F10.10 Alcohol abuse, uncomplicated; E89.0 Postprocedural hypothyroidism; E66.9 Obesity, unspecified; Z98.49 Cataract extraction status, unspecified eye; Z87.891 Personal history of nicotine dependence; Z79.84 Long term (current) use of oral hypoglycemic drugs; Z79.82 Long term (current) use of aspirin; Z79.899 Other long term (current) drug therapy

== ENCOUNTER → 2018-12-20 | Outpatient (CLI) | payer MEDICARE, BC, OTHER ==
[~2018-12-20] MED LIST changes: +AMOX500T PO; +CHOL100029 PO
--- NOTE | 2018-12-20 17:23 | REP ---
CT paranasal sinuses: 12/20/2018. Indication: Sinusitis. Technique: Axial images of the paranasal sinuses were performed with coronal reconstructions provided. Findings: Soft tissue fills the frontal and ethmoid sinuses as well as the left sphenoid sinus. The patient is status post stress bilaterally. There is moderate periosteal mucosal thickening within the maxillary sinuses with small air fluid levels bilaterally indicative of acute inflammation. Minimal air fluid level is present within the right sphenoid sinus. Soft tissue is noted throughout the sphenoethmoidal and frontal recesses. Soft tissue appears to obstruct the left maxillary antrectomy. Impression: Postoperative sequelae with acute on chronic diffuse paranasal sinus disease as described. Electronically Signed by Masoud Juarez DO 12/20/2018 05:14 P
== END ==
LOC: M RAD 16:21
PROVIDERS: ATTEND Specialist
DX: J33.8 Other polyp of sinus (principal); J32.4 Chronic pansinusitis

== ENCOUNTER → 2019-01-12 | Outpatient (REF) | payer MEDICARE, OTHER ==
[~2019-01-12] MED LIST changes: +DOXY-350 PO; +PERCOCET PO; +PRED20TA PO
[2019-01-12 17:01] LABS: HEMATOCRIT 40.2 % (42.0-52.0); HEMOGLOBIN 13.3 g/dl (13.5-17.5); MEAN CORPUSCULAR HEMOGLOBIN 33.7 pg (27.0-33.0); MEAN CORPUSCULAR HGB CONC 33.1 g/dl (32.0-36.5); MEAN CORPUSCULAR VOLUME 101.8 fl (80.0-96.0); PLATELET COUNT, AUTOMATED 427 10^3/uL (150-450); RED BLOOD COUNT 3.95 10^6/uL (4.30-6.10); WHITE BLOOD COUNT 8.3 10^3/uL (4.0-10.0)
[2019-01-12 17:14] LABS: ALBUMIN 3.7 GM/DL (3.2-5.2); ALT/SGPT 30 U/L (12-78); BILIRUBIN,TOTAL 0.5 MG/DL (0.2-1.0); BLOOD UREA NITROGEN 24 MG/DL (7-18); CARBON DIOXIDE LEVEL 31 MEQ/L (21-32); CHLORIDE LEVEL 98 MEQ/L (98-107); CHOLESTEROL LEVEL 166 MG/DL (<200); CHOLESTEROL RISK RATIO 2.128 (<5); CREATININE FOR GFR 1.13 MG/DL (0.70-1.30); GLOMERULAR FILTRATION RATE > 60.0 (>49); GLUCOSE, FASTING 98 MG/DL (70-100); HDL CHOLESTEROL 78 MG/DL (>40); LDL CHOLESTEROL 66 MG/DL (<100); NON-HDL-C 88 MG/DL; POTASSIUM SERUM 3.6 MEQ/L (3.5-5.1); SODIUM LEVEL 139 MEQ/L (136-145); TRIGLYCERIDES LEVEL 108 MG/DL (<150)
[2019-01-12 17:22] LABS: HEMOGLOBIN A1c 5.9 %
== END ==
LOC: M SFHCADAM 14:00
PROVIDERS: ATTEND Family Medicine
DX: I11.9 Hypertensive heart disease without heart failure (principal); J44.9 Chronic obstructive pulmonary disease, unspecified; R73.01 Impaired fasting glucose
CPT/HCPCS: 80053; 80061; 83036; 85027; G0463

== ENCOUNTER 2019-01-30 09:15 | Day surgery (SDC) | payer MEDICARE, BC, OTHER ==
[~2019-01-30] VITALS: Ht 165.1 cm; Wt 92.5 kg
[~2019-01-30 09:15] MED LIST changes: -DOXY-350 PO; -PERCOCET PO
[2019-01-30] MEDS ORDERED: ASPI81TA85 PO (10:21)
[2019-01-30] MEDS ORDERED: LIDOCAINE 2% INJ 100 MG/5 ML SDV (FOR ANES.) As Ordered ONE ×2 (10:23→12:15)
[2019-01-30] MEDS ORDERED: ROCURONIUM BROMIDE 50 MG/5 ML VIAL As Ordered ONE (10:23)
[2019-01-30] MEDS ORDERED: fentaNYL 100 MCG/2 ML INJECTION (J3010) As Ordered ONE ×2 (10:23→12:04)
[2019-01-30] MEDS ORDERED: PROPOFOL 200 MG/20 ML VIAL As Ordered ONE (10:23)
[2019-01-30] MEDS ORDERED: ONDANSETRON 4MG/2ML VIAL (J2405) As Ordered ONE ×2 (10:24→12:46)
[2019-01-30] MEDS ORDERED: MIDAZOLAM INJ 2 MG/2 ML VIAL (J2250) As Ordered ONE (10:24)
[2019-01-30] MEDS ORDERED: dexameTHASONE 4 MG/ML 1ML VIAL (J1100) As Ordered ONE ×2 (10:24→11:24)
[2019-01-30] MEDS ORDERED: SUGAMMADEX SODIUM 500 MG/5 ML VIAL (BRIDION) As Ordered ONE ×2 (10:30→12:08)
[2019-01-30] MEDS ORDERED: METHYLENE BLUE 0.5% (5MG/ML) 10 ML AMP (PROVAYBLUE)(Q9968 PER 1MG) As Ordered ONE (10:50)
[2019-01-30] MEDS ORDERED: LIDOCAINE W/EPINEPHRINE 1% 20ML VIAL As Ordered ONE (10:50)
[2019-01-30] MEDS ORDERED: OXYMETAZOLINE NASAL SPRAY (AFRIN) As Ordered ONE (10:51)
[2019-01-30] MEDS ORDERED: EPINEPHrine INJ 1 MG/ML 1ML AMP As Ordered ONE ×2 (10:51→11:48)
[2019-01-30] MEDS ORDERED: ACETAMINOPHEN 1000MG 100ML IV BTL (OFIRMEV) (J0131 PER 10MG) As Ordered ONE (11:47)
[2019-01-30] MEDS ORDERED: ePHEDrine SULFATE 25 MG/5 ML(5MG/ML) SYRINGE As Ordered ONE (12:11)
[2019-01-30] MEDS ORDERED: DOXY-350 PO (13:09)
[2019-01-30] MEDS ORDERED: PERCOCET PO (13:09)
[2019-01-30] MEDS ORDERED: ONDANSETRON 4MG/2ML VIAL (J2405) IV PRN (13:15)
[2019-01-30] MEDS ORDERED: fentaNYL 100 MCG/2 ML INJECTION (J3010) IV PRN (13:15)
[2019-01-30] MEDS ORDERED: PERCOCET 5MG/325MG TAB PO PRN ×2 (13:15→14:00)
[2019-01-30] MEDS ORDERED: LR 1,000 ML IV SCH (13:15)
[2019-01-30] MEDS ORDERED: IBUPROFEN 800 MG TAB PO PRN (14:00)
[2019-01-30 15:20] VITALS: BP 120/70
== END 2019-01-30 15:30 | disposition home or self-care (01) ==
LOC: M SDC 09:15
PROVIDERS: ATTEND Specialist
DX: J33.9 Nasal polyp, unspecified (principal); J32.0 Chronic maxillary sinusitis; I10 Essential (primary) hypertension; E78.5 Hyperlipidemia, unspecified; E11.9 Type 2 diabetes mellitus without complications; M10.9 Gout, unspecified; K21.9 Gastro-esophageal reflux disease without esophagitis; J44.9 Chronic obstructive pulmonary disease, unspecified; N40.0 Benign prostatic hyperplasia without lower urinary tract symptoms; Z79.899 Other long term (current) drug therapy; E55.9 Vitamin D deficiency, unspecified; Z87.891 Personal history of nicotine dependence; Z79.51 Long term (current) use of inhaled steroids; Z79.82 Long term (current) use of aspirin; F32.9 Major depressive disorder, single episode, unspecified
CPT/HCPCS: 31267; 88305; C2625; J0131; J1100; J2250; J2405; J3010; Q9968

== ENCOUNTER → 2019-07-13 | Outpatient (REF) | payer MEDICARE, OTHER ==
[~2019-07-13] MED LIST changes: +DOXY-350 PO; -MAPA325T2 PO; +MAPA325T8 PO; +PERCOCET PO
[2019-07-13 17:42] LABS: BASO # 0.1 10^3/uL (0.0-0.2); BASO % 1.1 % (0.0-1.0); BLOOD UREA NITROGEN 26 MG/DL (7-18); CALCIUM LEVEL 9.5 MG/DL (8.8-10.2); CARBON DIOXIDE LEVEL 34 MEQ/L (21-32); CHLORIDE LEVEL 98 MEQ/L (98-107); CREATININE FOR GFR 1.02 MG/DL (0.70-1.30); EOS # 0.6 10^3/uL (0.0-0.5); EOS % 7.5 % (0.0-3.0); GLOMERULAR FILTRATION RATE > 60.0 (>42); GLUCOSE, FASTING 109 MG/DL (70-100); HEMATOCRIT 40.2 % (42.0-52.0); HEMOGLOBIN 13.4 g/dl (13.5-17.5); LYMPH # 1.2 10^3/uL (1.5-5.0); LYMPH % 14.5 % (24.0-44.0); MEAN CORPUSCULAR HGB CONC 33.3 g/dl (32.0-36.5); MONO # 0.9 10^3/uL (0.0-0.8); MONO % 10.7 % (0.0-5.0); NEUTROPHILS # 5.3 10^3/uL (1.5-8.5); NEUTROPHILS % 65.7 % (36.0-66.0); PLATELET COUNT, AUTOMATED 421 10^3/uL (150-450); POTASSIUM SERUM 4.1 MEQ/L (3.5-5.1); RED BLOOD COUNT 3.94 10^6/uL (4.30-6.10); SODIUM LEVEL 138 MEQ/L (136-145); WHITE BLOOD COUNT 8.1 10^3/uL (4.0-10.0)
[2019-07-13 18:49] LABS: ERYTHROCYTE SEDIMENTATION RATE 22 mm/hr (0-20)
[2019-07-13 19:33] LABS: HEMOGLOBIN A1c 5.9 %
== END ==
LOC: M SFHCADAM 13:32
PROVIDERS: ATTEND Family Medicine
DX: R73.01 Impaired fasting glucose (principal); R21 Rash and other nonspecific skin eruption
CPT/HCPCS: 80048; 83036; 85025; 85652; 96372; G0463; J1040

== ENCOUNTER → 2019-08-25 | Outpatient (REF) | payer MEDICARE, OTHER ==
[2019-08-25 16:54] LABS: BASO # 0.1 10^3/uL (0.0-0.2); BASO % 0.5 % (0.0-1.0); EOS # 0.8 10^3/uL (0.0-0.5); EOS % 7.3 % (0.0-3.0); HEMATOCRIT 40.3 % (42.0-52.0); HEMOGLOBIN 13.5 g/dl (13.5-17.5); LYMPH # 1.3 10^3/uL (1.5-5.0); LYMPH % 12.9 % (24.0-44.0); MEAN CORPUSCULAR HGB CONC 33.5 g/dl (32.0-36.5); MEAN CORPUSCULAR VOLUME 98.5 fl (80.0-96.0); MONO # 1.2 10^3/uL (0.0-0.8); NEUTROPHILS # 6.9 10^3/uL (1.5-8.5); NEUTROPHILS % 66.8 % (36.0-66.0); PLATELET COUNT, AUTOMATED 405 10^3/uL (150-450); RED BLOOD COUNT 4.09 10^6/uL (4.30-6.10); WHITE BLOOD COUNT 10.3 10^3/uL (4.0-10.0)
[2019-08-25 17:02] LABS: BILIRUBIN,TOTAL 0.3 MG/DL (0.2-1.0); CALCIUM LEVEL 10.3 MG/DL (8.8-10.2); CREATININE FOR GFR 1.53 MG/DL (0.70-1.30); GLOMERULAR FILTRATION RATE 48.1 (>42); POTASSIUM SERUM 3.8 MEQ/L (3.5-5.1); TOTAL PROTEIN 7.8 GM/DL (6.4-8.2)
[2019-08-25 17:41] LABS: ERYTHROCYTE SEDIMENTATION RATE 22 mm/hr (0-20)
[2019-08-29 17:07] LABS: FREE KAPPA LIGHT CHAINS SERUM 23.6 mg/L (3.3-19.4); FREE LAMBDA LIGHT CHAINS SERUM 26.5 mg/L (5.7-26.3); KAPPA/LAMBDA RATIO SERUM 0.89 (0.26-1.65)
== END ==
LOC: M SFHCADAM 13:57
PROVIDERS: ATTEND Physician Assistant
DX: R21 Rash and other nonspecific skin eruption (principal); R19.7 Diarrhea, unspecified; D75.89 Other specified diseases of blood and blood-forming organs; F10.10 Alcohol abuse, uncomplicated
CPT/HCPCS: 80053; 83883; 85025; 85652; 86255; 96372; J1040

== ENCOUNTER → 2019-11-23 | Outpatient (REF) | payer MEDICARE, BC, OTHER ==
[~2019-11-23] MED LIST changes: -ASPI81TA85 PO; +ASPI81TA86 PO; +D200CAP3 PO; +DIPH25CA32 PO; +DOXE10CA PO; +DOXY100C PO; +GLIP5TAB20 PO; +OMEP-218 PO; +TRIA1CR80 TOP
== END ==
LOC: M LAB REF 16:37
PROVIDERS: ATTEND Physician Assistant
DX: R21 Rash and other nonspecific skin eruption (principal)

== ENCOUNTER 2020-01-02 11:29 | Observation (INO) | payer MEDICARE, BC, OTHER ==
[~2020-01-02] VITALS: Ht 167.6 cm; Wt 81.5 kg
[~2020-01-02 11:29] MED LIST changes: -D200CAP3 PO; -DIPH25CA32 PO; -DOXE10CA PO; -DOXY100C PO; -GLIP5TAB20 PO; -OMEP-218 PO; +OMEPRAZOLE 20 MG CAP PO SCH; -TRIA1CR80 TOP; +ramipriL 5 MG CAP PO SCH
[2020-01-02] MEDS ORDERED: NS 1,000 ML IV ONE ×2 (12:15→13:15)
[2020-01-02] MEDS ORDERED: ONDANSETRON 4MG/2ML VIAL IV ONE (12:15)
[2020-01-02 12:31] LABS: BASO # 0.1 10^3/uL (0.0-0.2); BASO % 0.5 % (0.0-1.0); EOS # 0.1 10^3/uL (0.0-0.5); EOS % 0.5 % (0.0-3.0); HEMATOCRIT 41.5 % (42.0-52.0); HEMOGLOBIN 14.8 g/dl (13.5-17.5); LYMPH # 1.1 10^3/uL (1.5-5.0); LYMPH % 10.6 % (24.0-44.0); MEAN CORPUSCULAR HGB CONC 35.7 g/dl (32.0-36.5); MEAN CORPUSCULAR VOLUME 98.1 fl (80.0-96.0); MONO # 0.8 10^3/uL (0.0-0.8); MONO % 7.8 % (0.0-5.0); NEUTROPHILS # 8.1 10^3/uL (1.5-8.5); PLATELET COUNT, AUTOMATED 485 10^3/uL (150-450); RED BLOOD COUNT 4.23 10^6/uL (4.30-6.10); WHITE BLOOD COUNT 10.1 10^3/uL (4.0-10.0)
--- NOTE | 2020-01-02 12:49 | REP ---
INDICATION: Abdominal Pain. COMPARISON: 11/16/2018. 03/07/2011. TECHNIQUE: Supine and erect views of the abdomen are performed. A PA view of the chest is performed. FINDINGS: No evidence of free intraperitoneal air or obstruction. No dilated small bowel loops are seen. Phleboliths are again seen inferiorly in the pelvis bilaterally. No other abnormal calcifications are seen. There are mild degenerative changes of the spine and hips. The lungs show no acute infiltrate. There is linear fibro atelectatic change in each lung base. The heart is not enlarged. The mediastinal silhouette is unremarkable. IMPRESSION: No acute findings. <Electronically signed by Deni Omer > 01/02/20 [id number]
[2020-01-02 12:52] LABS: ALBUMIN 3.6 GM/DL (3.2-5.2); ALT/SGPT 210 U/L (12-78); BILIRUBIN,DIRECT 0.2 MG/DL (0.0-0.2); BILIRUBIN,TOTAL 0.7 MG/DL (0.2-1.0); LIPASE 391 U/L (73-393); TOTAL PROTEIN 6.8 GM/DL (6.4-8.2)
[2020-01-02] MEDS ORDERED: POTASSIUM CHLORIDE 10% LIQ 20 MEQ/15 ML UDC PO ONE (13:00)
[2020-01-02 13:29] LABS: ACETAMINOPHEN LEVEL < 2.0 UG/ML (10.0-30.0); FERRITIN 330 NG/ML (26-388); IRON (FE) 146 UG/DL (65-175)
[2020-01-02] MEDS ORDERED: DOXY100C PO (13:41)
[2020-01-02] MEDS ORDERED: TRIA1CR80 TOP (13:41)
[2020-01-02] MEDS ORDERED: D200CAP3 PO (13:41)
[2020-01-02 13:43] LABS: ETHYL ALCOHOL (ETHANOL) < 0.003 % (0.000-0.010); HEPATITIS B SURFACE ANTIBODY NEGATIVE (POSITIVE)
--- NOTE | 2020-01-02 14:13 | HPEPDOC ---
General Date of Admission Jan 02, 2020 at 13:49 Date of Service: Jan 02, 2020 Chief Complaint The patient is a 69-year-old male admitted with a reason for visit of Gilbert, Lactic Acidosis. Source: Patient Exam Limitations: No limitations Timing/Duration: Week(s) Severity: Mild Associated Symptoms: Loss of appetite History of Present Illness Patient 69 years old male with past medical history of hypertension, BPH, GERD, type 2 diabetes presented to the hospital with loss of appetite and nausea. Patient stated that around 3-4 weeks ago he started losing his appetite, intermittently he had nausea. He stated that he had poor oral intake. He denied fever, chills, vomiting, dysuria. He stated that sometimes he had diarrhea. In ED patient was found to have white blood count of 10.1, lactic acidosis 5.1, potassium 2.9, creatinine 2.5, AST 118, ALT 210. Abdominal x-ray negative for acute findings Home Medications Scheduled Atorvastatin Calcium (Atorvastatin Calcium) 40 Mg Tab, 40 MG PO QHS, (Reported) Budesonide/Formoterol (Symbicort 160-4.5 Mcg Inhaler) 60 Puff/Inhaler Aers, 2 PUFF INH DAILY, (Reported) Chlorthalidone (Chlorthalidone) 25 Mg Tablet, 25 MG PO DAILY, (Reported) Cholecalciferol (Vitamin D3) (Vitamin D3) 50 Mcg Capsule, 2,000 UNITS PO DAILY, (Reported) Doxycycline Hyclate (Doxycycline Hyclate) 100 Mg Capsule, 100 MG PO BID, (Reported) Metformin HCl (Metformin HCl) 1,000 Mg Tab, 1,000 MG PO DAILY, (Reported) Ramipril (Altace) 10 Mg Cap, 10 MG PO DAILY, (Reported) Sertraline HCl (Sertraline HCl) 100 Mg Tab, 100 MG PO DAILY, (Reported) Triamcinolone Acet (Triamcinolone Acetonide 0.1% Crm) 80 Gm Cream..g., 1 APLCT TOP QHS, (Reported) APPLY TO RASH ON ARMS/BACK Scheduled PRN Fluticasone Propionate (Flonase Allergy Relief) 50 Mcg/Act Spr, 2 SPRAYS NARES DAILY PRN for CONGESTION, (Reported) Allergies Coded Allergies: No Known Allergies (Unverified , 01/19/19) Past Medical History Medical History HYPERTENSION HYPERCHOLESTEROLEMIA GASTROESOPHAGEAL REFLUX DISEASE BPH SMOKER - NORMAL PFTS 04/13 PRIMARY HYPERPARATHYROIDISM STATUS POST PARATHYROIDECTOMY 10/07 IMPAIRED FASTING GLUCOSE DEPRESSION 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 Social History * Smoker: former Smoker Alcohol: occationally Drugs: denies A-FIB/CHADSVASC A-FIB History Current/History of A-Fib/PAF?: No Current PO Anticoag Therapy: No Review of Systems Constitutional: Denies: Chills, Fever Eyes: Denies: Vision change ENT: Denies: Head Aches Skin: Reports: Rash, Itching, Breakdown Pulmonary: Denies: Dyspnea, Pleuritic Chest Pain Cardiovascular: Denies: Chest Pain, Palpitations Gastrointestinal: Reports: Nausea, Other Symptoms (loss of appetite) Genitourinary: Denies: Dysuria Hematologic: Denies: Bruising Endocrine: Denies: Polydipsia, Polyphagia Musculoskeletal: Denies: Neck Pain Neurological: Denies: Weakness Psych: Reports: Mood Normal Physical Examination General Exam: Positive: Alert, Cooperative Eye Exam: Positive: PERRLA ENT Exam: Positive: Atraumatic Neck Exam: Positive: Supple; Negative: JVD Chest Exam: Positive: Clear to auscultation Heart Exam: Positive: Rate Normal Telemetry: Positive: No significant arrhythmia Abdomen Exam: Positive: Normal bowel sounds Extremity Exam: Negative: Clubbing, Cyanosis Skin Exam: Positive: Rash, Breakdown Neuro Exam: Positive: Strength at 5/5 X4 ext, Cranial Nerves 3-12 NL Psych Exam: Positive: Mental status NL Vital Signs Vital Signs Date Time Temp Pulse Resp B/P (MAP) Pulse Ox O2 Delivery O2 Flow Rate FiO2 01/02/20 12:00 01/02/20 11:30 96.9 57 16 99 Room Air Laboratory Data Labs 24H Laboratory Tests 2 01/02/20 12:06: Immature Granulocyte % (Auto) 0.6, Neutrophils (%) (Auto) 80.0H, Lymphocytes (%) (Auto) 10.6L, Monocytes (%) (Auto) 7.8H, Eosinophils (%) (Auto) 0.5, Basophils (%) (Auto) 0.5, Neutrophils # (Auto) 8.1, Lymphocytes # (Auto) 1.1L, Monocytes # (Auto) 0.8, Eosinophils # (Auto) 0.1, Basophils # (Auto) 0.1, Nucleated Red Blood Cells % (auto) 0.0, Lactic Acid Level 5.1*H, Iron Level 146, Ferritin 330, Total Bilirubin 0.7, Direct Bilirubin 0.2, Aspartate Amino Transf (AST/SGOT) 118H, Alanine Aminotransferase (ALT/SGPT) 210H, Alkaline Phosphatase 95, Total Protein 6.8, Albumin 3.6, Albumin/Globulin Ratio 1.1, Lipase 391, Acetaminophen Level < 2.0L, Ethyl Alcohol Level < 0.003, Hepatitis B Surface Antibody NEGATIVE 01/02/20 12:19: POC Glucose (Misc Panel) 151H, POC Sodium (Misc Panel) 134L, POC Potassium (Misc Panel) 2.9*L, POC Chloride (Misc Panel) 90L, POC Total CO2 (Misc Panel) 25.0, POC Blood Urea Nitrogen (Misc Panel 61H, POC Ionized Calcium (Misc Panel) 4.4L, POC Creatinine (Misc Panel) 2.5H, POC Hematocrit (Misc Panel) 47.0 CBC/BMP Laboratory Tests 01/02/20 12:06 Assessment/Plan Patient 69 years old male with past medical history of hypertension, BPH, GERD, type 2 diabetes presented to the hospital with loss of appetite and nausea. Patient stated that around 3-4 weeks ago he started losing his appetite, intermittently he had nausea. He stated that he had poor oral intake. He denied fever, chills, vomiting, dysuria. He stated that sometimes he had diarrhea. In ED patient was found to have white blood count of 10.1, lactic acidosis 5.1, potassium 2.9, creatinine 2.5, AST 118, ALT 210. Abdominal x-ray negative for acute findings Problems (1) GILBERT (acute kidney injury) Status: Acute Problem Text: Prerenal secondary to poor oral intake Continue IV fluid Continue to monitor (2) Diabetes mellitus Status: Chronic Problem Text: Insulin sliding scale Diabetes diet (3) Lactic acidosis Status: Acute Problem Text: Most likely secondary to metformin Metformin on hold (4) Loss of appetite Status: Acute Problem Text: Unclear etiology Could be secondary to gastroparesis, Metformin, doxycycline, gastroenteritis, hepatitis We'll check liver ultrasound (5) Transaminitis Status: Chronic Problem Text: Hepatitis C, hepatitis A negative Could be secondary to Solomon, steatohepatitis Liver ultrasound (6) Hypokalemia Status: Acute Problem Text: Will check magnesium level Replaced (7) Rash and nonspecific skin eruption Status: Chronic Problem Text: Generalized rash with itchiness Patient is on doxycycline chronically Unclear etiology Follow-up with guitar repair technician in the outpatient settings Plan / VTE VTE Prophylaxis Ordered?: Yes ASHIA MANTILLA DO Jan 02, 2020 14:13
[2020-01-02 14:16] LABS: HEPATITIS C VIRUS ABY INDEX 0.1 INDEX (<0.8)
[2020-01-02 14:17] LABS: HEPATITIS A ANTIBODY IGM NEGATIVE (NEGATIVE)
[2020-01-02] MEDS ORDERED: DEXTROSE 50% 50 ML SYRINGE IV PRN (14:30)
[2020-01-02] MEDS ORDERED: GLUCOSE 4GM CHEW TABLET PO PRN (14:30)
[2020-01-02] MEDS ORDERED: FLUTICASONE PROP 0.05% NASAL SPRAY 16 GM (FLONASE) NARES PRN (14:30)
[2020-01-02] MEDS ORDERED: GLUCAGON INJ 1MG VIAL SC PRN (14:30)
[2020-01-02] MEDS ORDERED: KCL 10MEQ/100ML SWI (KRUN) 10 MEQ in IV 1 EA IV ONE (15:00)
[2020-01-02 15:25] LABS: MAGNESIUM LEVEL 1.7 MG/DL (1.8-2.4)
[2020-01-02 15:35] VITALS: BP 123/83
[2020-01-02] MEDS: SYMBICORT 160/4.5MCG INHALER 6GM INH SCH (15:46)
[2020-01-02] MEDS ORDERED: MAG SULF 1GM/100ML (MAG RUN) 1 GM in IV 1 EA IV ONE (16:00)
[2020-01-02] MEDS: NS 1,000 ML IV SCH (16:06)
[2020-01-02] MEDS: SERTRALINE 100 MG TAB PO SCH (16:15)
[2020-01-02] MEDS: HumaLOG INSULIN (NovoLOG) PER UNIT SC SCH ×2 (17:30→20:45)
[2020-01-02] MEDS ORDERED: OMEPRAZOLE 20 MG CAP PO ONE (18:00)
[2020-01-02 20:27] LABS: CREATININE FOR GFR 2.14 MG/DL (0.70-1.30); GLOMERULAR FILTRATION RATE 32.7 (>42); POTASSIUM SERUM 3.3 MEQ/L (3.5-5.1)
[2020-01-02] MEDS: DOXYCYCLINE HYCLATE 100MG TABLET PO SCH (20:58)
[2020-01-02] MEDS: HEPARIN SOD (PORCINE) 5000UNITS/ML 1ML VIAL/SYRINGE SC SCH (20:59)
[2020-01-02] MEDS ORDERED: TRIAMCINOLONE ACET 0.1% CREAM 80 GM TOP SCH (21:00)
[2020-01-02] MEDS ORDERED: diphenhydrAMINE 50MG/ML VIAL (J1200) IM ONE (21:30)
[2020-01-02 22:00] VITALS: BP 140/85
[2020-01-02] MEDS: TRIAMCINOLONE ACET 0.1% CREAM 15 GM TOP SCH (22:04)
[2020-01-03] MEDS ORDERED: hydrOXYzine 25 MG TAB PO ONE (00:30)
[2020-01-03 02:18] LABS: CALCIUM LEVEL 7.9 MG/DL (8.8-10.2); CREATININE FOR GFR 1.75 MG/DL (0.70-1.30); GLOMERULAR FILTRATION RATE 41.2 (>42); POTASSIUM SERUM 3.1 MEQ/L (3.5-5.1)
[2020-01-03] MEDS: NS 1,000 ML IV SCH ×4 (05:34→23:56)
[2020-01-03 06:00] VITALS: BP 132/83
[2020-01-03] MEDS: HumaLOG INSULIN (NovoLOG) PER UNIT SC SCH ×4 (07:19→20:20)
[2020-01-03 07:33] LABS: HEMATOCRIT 34.7 % (42.0-52.0); MEAN CORPUSCULAR HEMOGLOBIN 34.3 pg (27.0-33.0); MEAN CORPUSCULAR VOLUME 100.9 fl (80.0-96.0); RED BLOOD COUNT 3.44 10^6/uL (4.30-6.10); WHITE BLOOD COUNT 8.6 10^3/uL (4.0-10.0)
[2020-01-03] MEDS: SYMBICORT 160/4.5MCG INHALER 6GM INH SCH (07:39)
[2020-01-03] MEDS ORDERED: POTASSIUM CHLORIDE 10 MEQ SR TABLET PO ONE (08:00)
[2020-01-03 08:05] LABS: ALBUMIN 2.8 GM/DL (3.2-5.2); BILIRUBIN,TOTAL 0.6 MG/DL (0.2-1.0); CALCIUM LEVEL 7.8 MG/DL (8.8-10.2); CREATININE FOR GFR 1.55 MG/DL (0.70-1.30); GLOMERULAR FILTRATION RATE 47.4 (>42); MAGNESIUM LEVEL 1.9 MG/DL (1.8-2.4); POTASSIUM SERUM 4.1 MEQ/L (3.5-5.1); TOTAL PROTEIN 5.4 GM/DL (6.4-8.2)
[2020-01-03 08:13] LABS: HEMOGLOBIN 11.8 g/dl (13.5-17.5)
[2020-01-03 08:14] LABS: PLATELET COUNT, AUTOMATED 356 10^3/uL (150-450)
[2020-01-03] MEDS ORDERED: FLUBLOK(EGG FREE)(QUAD)INFLUENZA VACC 0.5ML SYRINGE 18YRS & OLDER IM SCH (09:00)
[2020-01-03] MEDS ORDERED: FLUBLOK(EGG FREE)(QUAD)INFLUENZA VACC 0.5ML SYRINGE 18YRS & OLDER IM ONE (09:00)
[2020-01-03] MEDS ORDERED: MAG SULF 1GM/100ML (MAG RUN) 1 GM in IV 1 EA IV ONE (09:00)
[2020-01-03] MEDS: ramipriL 5 MG CAP PO SCH (09:24)
[2020-01-03] MEDS: OMEPRAZOLE 20 MG CAP PO SCH (09:24)
[2020-01-03] MEDS: SERTRALINE 100 MG TAB PO SCH (09:24)
[2020-01-03] MEDS: DOXYCYCLINE HYCLATE 100MG TABLET PO SCH (09:25)
[2020-01-03] MEDS: HEPARIN SOD (PORCINE) 5000UNITS/ML 1ML VIAL/SYRINGE SC SCH ×2 (09:25→20:20)
--- NOTE | 2020-01-03 09:47 | REP ---
INDICATION: transaminitis. COMPARISON: 09/05/2016. TECHNIQUE: Real-time sonographic evaluation of right upper quadrant performed. FINDINGS: The gallbladder demonstrates no evidence of intraluminal sludge or calculi, wall thickening or pericholecystic fluid. There is no intrahepatic or extrahepatic biliary dilatation, common bile duct measures 4 mm in maximum diameter. The liver demonstrates diffuse increased echotexture compatible with diffuse fibrofatty infiltration. No gross mass is seen. The pancreas is not optimally seen due to overlying bowel gas, but no gross mass is seen.. The right kidney demonstrates no hydronephrosis, with a normal size of 10.9 cm in length. A medial right renal cyst measures 2 cm in diameter. No free fluid is seen. IMPRESSION: Diffuse fibrofatty infiltration of the liver with no gross mass. Gallbladder is unremarkable with no biliary dilatation or free fluid. Right renal cyst 2 cm in diameter. <Electronically signed by Deni Omer > 01/03/20 [id number]
[2020-01-03] MEDS: diphenhydrAMINE 25MG CAP PO SCH ×3 (10:41→23:56)
--- NOTE | 2020-01-03 11:21 | IPNPDOC ---
Text Note Date of Service The patient was seen on 01/03/20. NOTE Subjective: Patient continues to have severe generalized itchiness all over his body. Patient stated that his itchiness significantly increased from yesterday. GENERAL APPEARANCE: NAD HEENT: no scleral icterus, no JVD, EOMI CARDIOVASCULAR: S1S2 LUNGS: CTA ABDOMEN: soft & not tender w palpitation MUSCULOSKELETAL: no cyanosis, no swelling INTEGUMENT: macular papular rash with skin eruption all over his body with multiple scratches NEUROLOGICAL: cranial nerve function from 2-12 intact intact, follows commands, speech not dysarthric Assessment/Plan Patient 69 years old male with past medical history of hypertension, BPH, GERD, type 2 diabetes presented to the hospital with loss of appetite and nausea. Patient stated that around 3-4 weeks ago he started losing his appetite, intermittently he had nausea. He stated that he had poor oral intake. He denied fever, chills, vomiting, dysuria. He stated that sometimes he had diarrhea. In ED patient was found to have white blood count of 10.1, lactic acidosis 5.1, potassium 2.9, creatinine 2.5, AST 118, ALT 210. Abdominal x-ray negative for acute findings (1) TRANG (acute kidney injury) Improved Prerenal secondary to poor oral intake Continue IV fluid Continue to monitor (2) Diabetes mellitus Insulin sliding scale Diabetes diet (3) Lactic acidosis Resolved Most likely secondary to metformin Metformin on hold (4) Loss of appetite Patient was able to eat breakfast in the morning Unclear etiology Could be secondary to gastroparesis, Metformin, doxycycline, gastroenteritis, hepatitis (5) Transaminitis Hepatitis C, hepatitis A negative Could be secondary to Solomon, steatohepatitis Liver ultrasound showed Diffuse fibrofatty infiltration of the liver with no gross mass. Gallbladder is unremarkable with no biliary dilatation or free fluid. Right renal cyst 2 cm in diameter. (6) Hypokalemia Replaced (7) Rash and nonspecific skin eruption Generalized rash with itchiness Patient is on doxycycline chronically Unclear etiology Appreciate/agree with tying machine operator lumber consult Plan / VTE VTE Prophylaxis Ordered?: Yes VS,Fishbone, I+O VS, Fishbone, I+O Laboratory Tests 01/02/20 12:06 01/02/20 19:53 01/03/20 01:48 01/03/20 07:02 Vital Signs Date Time Temp Pulse Resp B/P (MAP) Pulse Ox O2 Delivery O2 Flow Rate FiO2 10/28/20 09:24 130/80 01/03/20 06:00 97.9 69 16 97 Room Air I&O- Last 24 Hours up to 6 AM 01/03/20 06:00 Intake Total 2300 ml Output Total 550 ml Balance 1750 ml ASHIA MANTILLA DO Jan 03, 2020 11:21
--- NOTE | 2020-01-03 13:14 | CR.PDOC ---
General Date of Consultation: Jan 03, 2020 Consultation S:Patient 69 years old male with past medical history of hypertension, BPH, GERD, type 2 diabetes presented to the hospital with loss of appetite and nausea. Patient stated that around 3-4 weeks ago he started losing his appetite, intermittently he had nausea. He stated that he had poor oral intake. He denied fever, chills, vomiting, dysuria. He stated that sometimes he had diarrhea. In ED patient was found to have white blood count of 10.1, lactic acidosis 5.1, potassium 2.9, creatinine 2.5, AST 118, ALT 210. Abdominal x-ray negative for acute findings. Patient was admitted for TRANG and lactic acidosis. Patient has been dealing with chronic pruritic eruption since the spring. Dermatopathology including H&E + DIF, was inconclusive. 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 Patient notes that the nausea and loss of appetite started around the time he began the doxycycline. Pruritus has worsened since last evening. O: Erythematous lichenified plaques scattered over trunk and extremities with excoriations. A: Unspecified dermatitis/Pruritus P: -Recommend discontinuation of the doxycycline as that very well may be the culprit of the nausea and loss of appetite. -Continue hydroxyzine prn for itch -May add doxepin 10mg daily for itch -Patient is scheduled for a follow up appointment in the dermatology office on WednesdayJanuary 07 at 11:30am Vital Signs/I&O Vital Signs Date Time Temp Pulse Resp B/P (MAP) Pulse Ox O2 Delivery O2 Flow Rate FiO2 01/03/20 09:24 130/80 01/03/20 06:00 97.9 69 16 97 Room Air I&O- Last 24 Hours up to 6 AM 01/03/20 06:00 Intake Total 2300 ml Output Total 550 ml Balance 1750 ml Laboratory Data Labs 24H Laboratory Tests 2 01/02/20 16:41: Lactic Acid Followup at 4 Hours 3.9*H 01/02/20 17:02: Bedside Glucose (Misc Panel) 121H 01/02/20 19:53: Anion Gap 10, Glomerular Filtration Rate 32.7L, Calcium Level 8.0L 01/02/20 20:44: Bedside Glucose (Misc Panel) 135H 01/03/20 01:48: Anion Gap 6L, Glomerular Filtration Rate 41.2L, Calcium Level 7.9L 01/03/20 06:51: Bedside Glucose (Misc Panel) 78L 01/03/20 07:02: Anion Gap 5L, Glomerular Filtration Rate 47.4, Calcium Level 7.8L, Nucleated Red Blood Cells % (auto) 0.0, Magnesium Level 1.9, Total Bilirubin 0.6, Aspartate Amino Transf (AST/SGOT) 110H, Alanine Aminotransferase (ALT/SGPT) 173H, Alkaline Phosphatase 75, Total Protein 5.4#L, Albumin 2.8#L, Albumin/Globulin Ratio 1.1 01/03/20 11:28: Bedside Glucose (Misc Panel) 133H 01/03/20 11:53: Lactic Acid Level 2.3*H CBC/BMP Laboratory Tests 01/02/20 19:53 01/03/20 01:48 01/03/20 07:02 Allergies Coded Allergies: No Known Allergies (Unverified , 01/19/19) Home Medications Scheduled Atorvastatin Calcium (Atorvastatin Calcium) 40 Mg Tab, 40 MG PO QHS, (Reported) Budesonide/Formoterol (Symbicort 160-4.5 Mcg Inhaler) 60 Puff/Inhaler Aers, 2 PUFF INH DAILY, (Reported) Chlorthalidone (Chlorthalidone) 25 Mg Tablet, 25 MG PO DAILY, (Reported) Cholecalciferol (Vitamin D3) (Vitamin D3) 50 Mcg Capsule, 2,000 UNITS PO DAILY, (Reported) Doxycycline Hyclate (Doxycycline Hyclate) 100 Mg Capsule, 100 MG PO BID, (Reported) Metformin HCl (Metformin HCl) 1,000 Mg Tab, 1,000 MG PO DAILY, (Reported) Ramipril (Altace) 10 Mg Cap, 10 MG PO DAILY, (Reported) Sertraline HCl (Sertraline HCl) 100 Mg Tab, 100 MG PO DAILY, (Reported) Triamcinolone Acet (Triamcinolone Acetonide 0.1% Crm) 80 Gm Cream..g., 1 APLCT TOP QHS, (Reported) APPLY TO RASH ON ARMS/BACK Scheduled PRN Fluticasone Propionate (Flonase Allergy Relief) 50 Mcg/Act Spr, 2 SPRAYS NARES DAILY PRN for CONGESTION, (Reported) Silvia Patel PA-C Jan 03, 2020 13:14
[2020-01-03 14:00] VITALS: BP 124/68
[2020-01-03] MEDS ORDERED: DOXEPIN 10 MG CAP PO ONE (14:00)
[2020-01-03 15:02] LABS: CALCIUM LEVEL 7.6 MG/DL (8.8-10.2); CREATININE FOR GFR 1.48 MG/DL (0.70-1.30); POTASSIUM SERUM 3.3 MEQ/L (3.5-5.1)
[2020-01-03 15:07] LABS: ANTINUCLEAR ANTIBODIES DIRECT Negative (Negative)
[2020-01-03] MEDS: TRIAMCINOLONE ACET 0.1% CREAM 15 GM TOP SCH (20:19)
[2020-01-03 22:00] VITALS: BP 100/63
[2020-01-04] MEDS: NS 1,000 ML IV SCH ×2 (04:40→11:34)
[2020-01-04] MEDS: diphenhydrAMINE 25MG CAP PO SCH (05:06)
[2020-01-04 06:00] VITALS: BP 107/63
[2020-01-04] MEDS: HumaLOG INSULIN (NovoLOG) PER UNIT SC SCH ×2 (07:30→12:00)
[2020-01-04 08:27] LABS: BASO # 0.1 10^3/uL (0.0-0.2); BASO % 1.4 % (0.0-1.0); EOS # 0.4 10^3/uL (0.0-0.5); EOS % 5.4 % (0.0-3.0); HEMATOCRIT 31.4 % (42.0-52.0); HEMOGLOBIN 10.7 g/dl (13.5-17.5); LYMPH # 2.2 10^3/uL (1.5-5.0); LYMPH % 31.8 % (24.0-44.0); MEAN CORPUSCULAR HEMOGLOBIN 34.4 pg (27.0-33.0); MEAN CORPUSCULAR HGB CONC 34.1 g/dl (32.0-36.5); NEUTROPHILS # 3.3 10^3/uL (1.5-8.5); NEUTROPHILS % 47.3 % (36.0-66.0); PLATELET COUNT, AUTOMATED 302 10^3/uL (150-450); RED BLOOD COUNT 3.11 10^6/uL (4.30-6.10)
[2020-01-04] MEDS: SYMBICORT 160/4.5MCG INHALER 6GM INH SCH (08:49)
[2020-01-04] MEDS ORDERED: DOXEPIN 10 MG CAP PO SCH (09:00)
[2020-01-04 09:47] LABS: ALBUMIN 2.6 GM/DL (3.2-5.2); ALT/SGPT 139 U/L (12-78); BILIRUBIN,TOTAL 0.3 MG/DL (0.2-1.0); BLOOD UREA NITROGEN 31 MG/DL (7-18); CALCIUM LEVEL 7.6 MG/DL (8.8-10.2); CARBON DIOXIDE LEVEL 31 MEQ/L (21-32); CHLORIDE LEVEL 105 MEQ/L (98-107); CREATININE FOR GFR 1.18 MG/DL (0.70-1.30); GLOMERULAR FILTRATION RATE > 60.0 (>42); GLUCOSE, FASTING 81 MG/DL (70-100); MAGNESIUM LEVEL 1.8 MG/DL (1.8-2.4); POTASSIUM SERUM 4.1 MEQ/L (3.5-5.1); SODIUM LEVEL 139 MEQ/L (136-145); TOTAL PROTEIN 4.9 GM/DL (6.4-8.2)
[2020-01-04] MEDS: SERTRALINE 100 MG TAB PO SCH (09:47)
[2020-01-04] MEDS: OMEPRAZOLE 20 MG CAP PO SCH (09:47)
[2020-01-04 09:48] VITALS: BP 127/76
[2020-01-04] MEDS: ramipriL 5 MG CAP PO SCH (09:48)
[2020-01-04] MEDS: HEPARIN SOD (PORCINE) 5000UNITS/ML 1ML VIAL/SYRINGE SC SCH (09:49)
[2020-01-04] MEDS ORDERED: OMEP-218 PO (10:28)
[2020-01-04] MEDS ORDERED: DOXE10CA PO (10:28)
[2020-01-04] MEDS ORDERED: DIPH25CA32 PO (10:28)
[2020-01-04] MEDS ORDERED: GLIP5TAB20 PO (10:29)
--- NOTE | 2020-01-04 11:22 | DS.PDOC ---
Discharge Summary General Date of Admission Jan 02, 2020 at 13:49 Date of Discharge 01/04/20 Discharge Summary PROCEDURES PERFORMED DURING STAY: [None]. ADMITTING DIAGNOSES: GILBERT (acute kidney injury) Diabetes mellitus Lactic acidosis Loss of appetite Transaminitis Hypokalemia Rash and nonspecific skin eruption DISCHARGE DIAGNOSES: GILBERT (acute kidney injury) Diabetes mellitus Lactic acidosis Loss of appetite Transaminitis Hypokalemia Rash and nonspecific skin eruption COMPLICATIONS/CHIEF COMPLAINT: Gilbert, Lactic Acidosis. HISTORY OF PRESENT ILLNESS: Patient 69 years old male with past medical history of hypertension, BPH, GERD, type 2 diabetes presented to the hospital with loss of appetite and nausea. Patient stated that around 3-4 weeks ago he started losing his appetite, intermittently he had nausea. He stated that he had poor oral intake. He denied fever, chills, vomiting, dysuria. He stated that sometimes he had diarrhea. In ED patient was found to have white blood count of 10.1, lactic acidosis 5.1, potassium 2.9, creatinine 2.5, AST 118, ALT 210. Abdominal x-ray negative for acute findings HOSPITAL COURSE: During hospital stay following issue addressed (1) GILBERT (acute kidney injury) Improved Prerenal secondary to poor oral intake (2) Diabetes mellitus Insulin sliding scale Diabetes diet (3) Lactic acidosis Resolved Most likely secondary to metformin DC metformin (4) Loss of appetite Patient was able to eat breakfast in the morning Unclear etiology Could be secondary to gastroparesis, Metformin, doxycycline, gastroenteritis, hepatitis DC doxycycline and metformin (5) Transaminitis Hepatitis C, hepatitis A negative Could be secondary to Solomon, steatohepatitis Liver ultrasound showed Diffuse fibrofatty infiltration of the liver with no gross mass. Gallbladder is unremarkable with no biliary dilatation or free fluid. Right renal cyst 2 cm in diameter. (6) Hypokalemia Replaced (7) Rash and nonspecific skin eruption Generalized rash with itchiness Patient is on doxycycline chronically Unclear etiology Patient will have softball player consult on January 07 at 1130 DISCHARGE MEDICATIONS: Please see below. ALLERGIES: Please see below. PHYSICAL EXAMINATION ON DISCHARGE: VITAL SIGNS: Please see below. HEENT: no scleral icterus, no JVD, EOMI CARDIOVASCULAR: S1S2 LUNGS: CTA ABDOMEN: soft & not tender w palpitation MUSCULOSKELETAL: no cyanosis, no swelling INTEGUMENT: macular papular rash with skin eruption all over his body with multiple scratches NEUROLOGICAL: cranial nerve function from 2-12 intact intact, follows commands, speech not dysarthric LABORATORY DATA: Please see below. IMAGING: INDICATION: transaminitis. COMPARISON: 09/05/2016. TECHNIQUE: Real-time sonographic evaluation of right upper quadrant performed. FINDINGS: The gallbladder demonstrates no evidence of intraluminal sludge or calculi, wall thickening or pericholecystic fluid. There is no intrahepatic or extrahepatic biliary dilatation, common bile duct measures 4 mm in maximum diameter. The liver demonstrates diffuse increased echotexture compatible with diffuse fibrofatty infiltration. No gross mass is seen. The pancreas is not optimally seen due to overlying bowel gas, but no gross mass is seen.. The right kidney demonstrates no hydronephrosis, with a normal size of 10.9 cm in length. A medial right renal cyst measures 2 cm in diameter. No free fluid is seen. IMPRESSION: Diffuse fibrofatty infiltration of the liver with no gross mass. Gallbladder is unremarkable with no biliary dilatation or free fluid. Right renal cyst 2 cm in diameter. PROGNOSIS: Fair ACTIVITY: [As tolerated]. DIET: Cardiac DISCHARGE PLAN: Home ITEMS TO FOLLOWUP ON ON OUTPATIENT: Follow-up with softball player and PCP DISCHARGE CONDITION: [Stable]. TIME SPENT ON DISCHARGE: Greater than 20minutes. Vital Signs/I&Os Vital Signs Date Time Temp Pulse Resp B/P (MAP) Pulse Ox O2 Delivery O2 Flow Rate FiO2 01/04/20 09:48 127/76 01/04/20 06:00 98.1 69 17 97 Room Air I&O- Last 24 Hours up to 6 AM 01/04/20 06:00 Intake Total 4620 ml Output Total 2500 ml Balance 2120 ml Laboratory Data Labs 24H Laboratory Tests 2 01/03/20 11:28: Bedside Glucose (Misc Panel) 133H 01/03/20 11:53: Lactic Acid Level 2.3*H 01/03/20 14:10: Anion Gap 6L, Glomerular Filtration Rate 50.0, Calcium Level 7.6L 01/03/20 15:18: Bedside Glucose (Misc Panel) 105 01/03/20 16:14: Lactic Acid Followup at 4 Hours 2.7*H 01/03/20 16:28: Bedside Glucose (Misc Panel) 103 01/03/20 19:17: Bedside Glucose (Misc Panel) 88 01/04/20 05:59: Bedside Glucose (Misc Panel) 69L 01/04/20 08:13: Immature Granulocyte % (Auto) 0.1, Neutrophils (%) (Auto) 47.3, Lymphocytes (%) (Auto) 31.8, Monocytes (%) (Auto) 14.0H, Eosinophils (%) (Auto) 5.4H, Basophils (%) (Auto) 1.4H, Neutrophils # (Auto) 3.3, Lymphocytes # (Auto) 2.2, Monocytes # (Auto) 1.0H, Eosinophils # (Auto) 0.4, Basophils # (Auto) 0.1, Nucleated Red Blood Cells % (auto) 0.0, Anion Gap 3L, Glomerular Filtration Rate > 60.0, Lactic Acid Level 2.2*H, Calcium Level 7.6L, Magnesium Level 1.8, Total Bilirubin 0.3, Aspartate Amino Transf (AST/SGOT) 77H, Alanine Aminotransferase (ALT/SGPT) 139H, Alkaline Phosphatase 76, Total Protein 4.9L, Albumin 2.6L, Albumin/Globulin Ratio 1.1 CBC/BMP Laboratory Tests 01/03/20 14:10 01/04/20 08:13 FSBS Laboratory Tests Test 01/03/20 11:28 01/03/20 15:18 01/03/20 16:28 01/03/20 19:17 Range/Units Bedside Glucose (Misc Panel) 133 105 103 88 83-110 MG/DL Test 01/04/20 05:59 Range/Units Bedside Glucose (Misc Panel) 69 83-110 MG/DL Discharge Medications Scheduled Atorvastatin Calcium (Atorvastatin Calcium) 40 Mg Tab, 40 MG PO QHS, (Reported) Budesonide/Formoterol (Symbicort 160-4.5 Mcg Inhaler) 60 Puff/Inhaler Aers, 2 PUFF INH DAILY, (Reported) Chlorthalidone (Chlorthalidone) 25 Mg Tablet, 25 MG PO DAILY, (Reported) Cholecalciferol (Vitamin D3) (Vitamin D3) 50 Mcg Capsule, 2,000 UNITS PO DAILY, (Reported) Diphenhydramine HCl (Diphenhydramine HCl) 25 Mg Capsule, 25 MG PO Q6H Doxepin HCl (Doxepin HCl) 10 Mg Capsule, 10 MG PO DAILY Glipizide (Glipizide ER) 5 Mg Tab.er.24, 5 MG PO DAILY Omeprazole (Omeprazole) 20 Mg Capsule.dr, 20 MG PO DAILY Ramipril (Altace) 10 Mg Cap, 10 MG PO DAILY, (Reported) Sertraline HCl (Sertraline HCl) 100 Mg Tab, 100 MG PO DAILY, (Reported) Triamcinolone Acet (Triamcinolone Acetonide 0.1% Crm) 80 Gm Cream..g., 1 APLCT TOP QHS, (Reported) APPLY TO RASH ON ARMS/BACK Scheduled PRN Fluticasone Propionate (Flonase Allergy Relief) 50 Mcg/Act Spr, 2 SPRAYS NARES DAILY PRN for CONGESTION, (Reported) Allergies Coded Allergies: No Known Allergies (Unverified , 01/19/19) ASHIA MANTILLA DO Jan 04, 2020 11:22
== END 2020-01-04 12:05 | disposition home or self-care (01) ==
LOC: M ED 11:29 → M ED INP 13:49 → M MSPAV 15:35
PROVIDERS: ADMIT Internal Medicine; ATTEND Internal Medicine
DX: N17.9 Acute kidney failure, unspecified (principal); E11.9 Type 2 diabetes mellitus without complications; E87.2 Acidosis; R63.0 Anorexia; R74.02 Elevation of levels of lactic acid dehydrogenase [LDH]; E87.6 Hypokalemia; R21 Rash and other nonspecific skin eruption; I10 Essential (primary) hypertension; N40.0 Benign prostatic hyperplasia without lower urinary tract symptoms; K21.9 Gastro-esophageal reflux disease without esophagitis; Z79.84 Long term (current) use of oral hypoglycemic drugs; Z79.899 Other long term (current) drug therapy; J45.909 Unspecified asthma, uncomplicated; E55.9 Vitamin D deficiency, unspecified; Z87.891 Personal history of nicotine dependence
CPT/HCPCS: 36415; 74021; 76705; 80047; 80053; 80076; 82390; 82728; 83540; 83605; 83690; 83735; 85025; 85027; 86038; 86706; 86709; 86803; 90682; 93041; 94640; 96361; 96372; 96374; 96375; 97161; 99285; G0008; G0378; G0463; G0480; J1200; J1644; J2405; J3475

== ENCOUNTER → 2020-01-08 | Outpatient (REF) | payer MEDICARE, OTHER ==
[~2020-01-08] MED LIST changes: +D200CAP3 PO; +DIPH25CA32 PO; +DOXE10CA PO; +DOXY100C PO; +GLIP5TAB20 PO; +OMEP-218 PO; -OMEPRAZOLE 20 MG CAP PO SCH; +TRIA1CR80 TOP; -ramipriL 5 MG CAP PO SCH
== END ==
LOC: M LAB REF 16:44
PROVIDERS: ATTEND Physician Assistant
DX: R21 Rash and other nonspecific skin eruption (principal)

== ENCOUNTER → 2020-01-11 | Outpatient (REF) | payer MEDICARE, OTHER ==
[2020-01-11 12:44] LABS: BASO # 0.1 10^3/uL (0.0-0.2); EOS # 0.5 10^3/uL (0.0-0.5); EOS % 5.5 % (0.0-3.0); HEMATOCRIT 33.3 % (42.0-52.0); LYMPH # 2.1 10^3/uL (1.5-5.0); LYMPH % 21.1 % (24.0-44.0); MEAN CORPUSCULAR HEMOGLOBIN 33.8 pg (27.0-33.0); MEAN CORPUSCULAR VOLUME 102.5 fl (80.0-96.0); MONO % 10.5 % (0.0-5.0); NEUTROPHILS % 61.4 % (36.0-66.0); PLATELET COUNT, AUTOMATED 384 10^3/uL (150-450); RED BLOOD COUNT 3.25 10^6/uL (4.30-6.10); WHITE BLOOD COUNT 9.7 10^3/uL (4.0-10.0)
[2020-01-11 13:10] LABS: ALBUMIN 3.1 GM/DL (3.2-5.2); BILIRUBIN,TOTAL 0.2 MG/DL (0.2-1.0); CALCIUM LEVEL 9.1 MG/DL (8.8-10.2); CREATININE FOR GFR 1.31 MG/DL (0.70-1.30); FREE T4 0.7 NG/DL (0.76-1.46); GLOMERULAR FILTRATION RATE 57.6 (>42); PERCENT SATURATION 29.7 % (19.7-50.0); THYROID STIMULATING HORMONE 2.43 uIU/ML (0.358-3.740); TOTAL PROTEIN 6.3 GM/DL (6.4-8.2)
[2020-01-11 13:13] LABS: FOLATE 5.5 NG/ML; PTH INTACT 50.2 PG/ML (18.5-88.0)
== END ==
LOC: M SFHCADAM 10:41
PROVIDERS: ATTEND Physician Assistant
DX: D64.9 Anemia, unspecified (principal); R73.01 Impaired fasting glucose; E83.52 Hypercalcemia; R74.8 Abnormal levels of other serum enzymes
CPT/HCPCS: 80053; 82607; 82728; 82746; 83550; 83970; 84439; 84443; 85025; 99496; G0463

== ENCOUNTER → 2020-03-19 | Outpatient (REF) | payer MEDICARE, OTHER ==
[2020-03-19 18:25] LABS: CALCIUM LEVEL 9.5 MG/DL (8.8-10.2); CREATININE FOR GFR 1.37 MG/DL (0.70-1.30); GLOMERULAR FILTRATION RATE 54.5 (>42); POTASSIUM SERUM 3.8 MEQ/L (3.5-5.1)
== END ==
LOC: M SFHCADAM 13:58
PROVIDERS: ATTEND Physician Assistant
DX: I11.9 Hypertensive heart disease without heart failure (principal)
CPT/HCPCS: 80048; G0463

== ENCOUNTER → 2020-04-16 | Outpatient (CLI) | payer MEDICARE, BC, OTHER ==
--- NOTE | 2020-04-16 16:59 | REP ---
INDICATION: ENCOUNTER FOR SCREENING FOR LUNG CANCER. COMPARISON: Comparison chest CT 16 November 2018.. TECHNIQUE: Low-dose screening exam. 3 mm axial images are provided at lung windows only. FINDINGS: There is minimal linear fibrosis in the right middle lobe. There is a small zone of subpleural fibrosis in the right upper lobe posteriorly. Lung castell[place] are otherwise clear. No pulmonary nodule or mass lesion is seen. No infiltrate or pleural effusion is seen. Vascular calcification is noted. IMPRESSION: Lung RADS category 1 findings. Repeat screening exam indicated in 1 year. <Electronically signed by Danny Robles > 04/16/20 [id number]
== END ==
LOC: M RAD 15:26
PROVIDERS: ATTEND Family Medicine
DX: Z12.2 Encounter for screening for malignant neoplasm of respiratory organs (principal)

== ENCOUNTER → 2020-09-03 | Outpatient (CLI) | payer MEDICARE, BC, OTHER ==
[~2020-09-03] MED LIST changes: +ASPI-569 PO; -ASPI81TAEC PO
--- NOTE | 2020-09-03 14:44 | REP ---
INDICATION: TROCHANTERIC BURSITIS, LEFT HIP COMPARISON: None. TECHNIQUE: AP and frog-lateral views of the left hip FINDINGS: Generalized age-related changes include subtle increased sclerosis to the acetabulum with minimal joint space narrowing and marginal spurring. No further overt osteoarthritic or significant degenerative changes are appreciated. No evidence for acute or healed injury. Surrounding soft tissues are normal. IMPRESSION: Age-related degenerative changes. <Electronically signed by Irwin Burris > 09/03/20 [id number]
== END ==
LOC: M ADAMS 14:05
PROVIDERS: ATTEND Family Medicine
DX: M70.62 Trochanteric bursitis, left hip (principal); I11.9 Hypertensive heart disease without heart failure; E78.2 Mixed hyperlipidemia; F32.9 Major depressive disorder, single episode, unspecified
CPT/HCPCS: 73502; 80053; 80061; 84439; 84443; 85027; G0463

== ENCOUNTER → 2020-09-03 | Outpatient (REF) | payer MEDICARE, OTHER ==
[2020-09-03 16:39] LABS: HEMATOCRIT 39.6 % (42.0-52.0); HEMOGLOBIN 13.1 g/dl (13.5-17.5); MEAN CORPUSCULAR HEMOGLOBIN 33.2 pg (27.0-33.0); MEAN CORPUSCULAR HGB CONC 33.1 g/dl (32.0-36.5); MEAN CORPUSCULAR VOLUME 100.5 fl (80.0-96.0); PLATELET COUNT, AUTOMATED 404 10^3/uL (150-450); RED BLOOD COUNT 3.94 10^6/uL (4.30-6.10); WHITE BLOOD COUNT 8.5 10^3/uL (4.0-10.0)
[2020-09-03 17:11] LABS: ALBUMIN 3.6 GM/DL (3.2-5.2); ALT/SGPT 21 U/L (12-78); BILIRUBIN,TOTAL 0.2 MG/DL (0.2-1.0); BLOOD UREA NITROGEN 25 MG/DL (7-18); CALCIUM LEVEL 9.5 MG/DL (8.8-10.2); CARBON DIOXIDE LEVEL 31 MEQ/L (21-32); CHLORIDE LEVEL 103 MEQ/L (98-107); CHOLESTEROL LEVEL 256 MG/DL (<200); CHOLESTEROL RISK RATIO 4.654 (<5); CREATININE FOR GFR 1.05 MG/DL (0.70-1.30); FREE T4 0.78 NG/DL (0.76-1.46); GLOMERULAR FILTRATION RATE > 60.0 (>42); GLUCOSE, FASTING 108 MG/DL (70-100); HDL CHOLESTEROL 55 MG/DL (>40); LDL CHOLESTEROL 173 MG/DL (<100); NON-HDL-C 201 MG/DL; POTASSIUM SERUM 4.6 MEQ/L (3.5-5.1); SODIUM LEVEL 142 MEQ/L (136-145); TOTAL PROTEIN 7.1 GM/DL (6.4-8.2); TRIGLYCERIDES LEVEL 138 MG/DL (<150)
== END ==
LOC: M SFHCADAM 14:10
PROVIDERS: ATTEND Family Medicine
DX: I11.9 Hypertensive heart disease without heart failure (principal); E78.2 Mixed hyperlipidemia; F32.9 Major depressive disorder, single episode, unspecified

== ENCOUNTER → 2020-09-17 | Outpatient (CLI) | payer MEDICARE, BC, OTHER ==
[~2020-09-17] MED LIST changes: +ALBU8.5H; +AMOX875T; +BISO5TAB14; -DICY20TA11 PO; +DICY20TA20 PO; -DOXY100C PO; +DOXY100C3 PO; +FURO40TA2; +LEVO750T14 PO; +MUCI120T PO; +OMEP-173 PO; -OMEP-218 PO
== END ==
LOC: M SOG 13:41
PROVIDERS: ATTEND Orthopaedic Surgery Adult Reconstructive Orthopaedic Surgery
DX: M25.552 Pain in left hip (principal)

== ENCOUNTER → 2020-09-20 | Outpatient (CLI) | payer MEDICARE, OTHER ==
[~2020-09-20] MED LIST changes: -ALBU8.5H; -AMOX875T; -BISO5TAB14; +DICY20TA11 PO; -DICY20TA20 PO; +DOXY100C PO; -DOXY100C3 PO; -FURO40TA2; -LEVO750T14 PO; -MUCI120T PO; -OMEP-173 PO; +OMEP-218 PO
--- NOTE | 2020-09-20 15:23 | REP ---
INDICATION: IMPINGEMENT SYNDROME BILAT. COMPARISON: None. TECHNIQUE: Three views bilateral FINDINGS: Right shoulder: There is hypertrophic degenerative change seen involving the acromioclavicular joint with calcifications. Soft tissue calcifications are also seen lateral to the greater humeral tuberosity. There is humeral head marginal osteophyte formation. Subtle calcifications are seen along the superolateral margin of the glenoid. There is no acute fracture, dislocation, or subluxation. Left shoulder: Calcifications are seen superolateral to the greater humeral tuberosity. Hypertrophic degenerative changes seen involving the acromioclavicular joint. There is humeral head marginal osteophytosis. There is no acute fracture, dislocation, or subluxation. IMPRESSION: 1. Bilateral shoulder soft tissue calcifications suggestive of either chronic calcific supraspinatus tendinitis or chronic calcific subdeltoid bursitis. This should be correlated clinically. 1. Advanced appearing AC joint DJD 1. Other degenerative changes as described above. <Electronically signed by Caio Suárez > 09/20/20 [id number]
== END ==
LOC: M SOG 14:23
PROVIDERS: ATTEND Orthopaedic Surgery Sports Medicine
DX: M75.41 Impingement syndrome of right shoulder (principal); M75.42 Impingement syndrome of left shoulder

== ENCOUNTER → 2021-02-25 | Outpatient (CLI) | payer MEDICARE, BC, OTHER ==
[~2021-02-25] MED LIST changes: -DOXY100C PO; +DOXY100C3 PO
--- NOTE | 2021-02-25 13:57 | REP ---
INDICATION: ABDOMINAL PAIN, UPPER RESPIRATORY INFECTION, COVID EXPOSURE COMPARISON: None. TECHNIQUE: Upright view of the chest with supine and upright views of the abdomen and pelvis. FINDINGS: Frontal upright view of the chest demonstrates no acute cardiopulmonary process or free air below the diaphragm to suspect pneumoperitoneum. Supine and upright views of the abdomen and pelvis demonstrate nonspecific bowel gas pattern without obstruction or perforation. No organomegaly. No abnormal calcifications. Skeletal structures demonstrate age-related degenerative changes. IMPRESSION: Nonspecific bowel gas pattern. <Electronically signed by Irwin Burris > 02/25/21 [id number]
[2021-02-25 16:08] LABS: BASO # 0.2 10^3/uL (0.0-0.2); BASO % 0.9 % (0.0-1.0); EOS % 16.3 % (0.0-3.0); HEMATOCRIT 41.8 % (42.0-52.0); HEMOGLOBIN 13.5 g/dl (13.5-17.5); LYMPH # 0.8 10^3/uL (1.5-5.0); LYMPH % 4.6 % (24.0-44.0); MEAN CORPUSCULAR HEMOGLOBIN 32.3 pg (27.0-33.0); MEAN CORPUSCULAR HGB CONC 32.3 g/dl (32.0-36.5); MONO # 1.3 10^3/uL (0.0-0.8); MONO % 7.1 % (2.0-8.0); NEUTROPHILS # 12.8 10^3/uL (1.5-8.5); NEUTROPHILS % 70.7 % (36.0-66.0); PLATELET COUNT, AUTOMATED 585 10^3/uL (150-450); RED BLOOD COUNT 4.18 10^6/uL (4.30-6.10); WHITE BLOOD COUNT 18.2 10^3/uL (4.0-10.0)
[2021-02-25 16:41] LABS: ALBUMIN 3.9 GM/DL (3.2-5.2); BILIRUBIN,TOTAL 0.4 MG/DL (0.2-1.0); CALCIUM LEVEL 9.8 MG/DL (8.8-10.2); CREATININE FOR GFR 1.27 MG/DL (0.70-1.30); GLOMERULAR FILTRATION RATE 59.3 (>42); POTASSIUM SERUM 4.8 MEQ/L (3.5-5.1); TOTAL PROTEIN 7.7 GM/DL (6.4-8.2)
== END ==
LOC: M WUC 13:35
PROVIDERS: ATTEND Physician Assistant
DX: R10.84 Generalized abdominal pain (principal); J06.9 Acute upper respiratory infection, unspecified; Z20.828 Contact with and (suspected) exposure to other viral communicable diseases

== ENCOUNTER 2021-02-26 14:57 | Emergency (ER) | payer MEDICARE, BC, OTHER ==
[~2021-02-26] VITALS: Ht 165.1 cm; Wt 95.5 kg
[2021-02-26 16:44] LABS: BASO # 0.1 10^3/uL (0.0-0.2); BASO % 0.8 % (0.0-1.0); EOS # 2.6 10^3/uL (0.0-0.5); HEMATOCRIT 40.7 % (42.0-52.0); HEMOGLOBIN 13.4 g/dl (13.5-17.5); LYMPH # 1.1 10^3/uL (1.5-5.0); LYMPH % 6.4 % (24.0-44.0); MEAN CORPUSCULAR HEMOGLOBIN 33.3 pg (27.0-33.0); MEAN CORPUSCULAR HGB CONC 32.9 g/dl (32.0-36.5); MONO # 1.2 10^3/uL (0.0-0.8); MONO % 6.7 % (2.0-8.0); NEUTROPHILS # 12.3 10^3/uL (1.5-8.5); NEUTROPHILS % 70.8 % (36.0-66.0); PLATELET COUNT, AUTOMATED 527 10^3/uL (150-450); RED BLOOD COUNT 4.03 10^6/uL (4.30-6.10); WHITE BLOOD COUNT 17.3 10^3/uL (4.0-10.0)
[2021-02-26 17:01] LABS: BLOOD UREA NITROGEN 25 MG/DL (7-18); CALCIUM LEVEL 9.4 MG/DL (8.8-10.2); CARBON DIOXIDE LEVEL 32 MEQ/L (21-32); CHLORIDE LEVEL 103 MEQ/L (98-107); CREATININE FOR GFR 1.01 MG/DL (0.70-1.30); GLOMERULAR FILTRATION RATE > 60.0 (>42); GLUCOSE, FASTING 97 MG/DL (70-100); POTASSIUM SERUM 4.3 MEQ/L (3.5-5.1); SODIUM LEVEL 141 MEQ/L (136-145)
[2021-02-26] MEDS ORDERED: ISOVUE-370 76% 100ML VIAL As Ordered ONE (17:11)
[2021-02-26] MEDS: NS 1,000 ML IV ONE (17:19)
--- NOTE | 2021-02-26 18:15 | REPVR ---
PROCEDURE INFORMATION: Exam: CT Chest With Contrast; Diagnostic Exam date and time: 02/26/2021 5:36 PM Age: 71 years old Clinical indication: Other: Elev wbc, nausea, loss of appetite TECHNIQUE: Imaging protocol: Diagnostic computed tomography of the chest with contrast. Radiation optimization: All CT scans at this facility use at least one of these dose optimization techniques: automated exposure control; mA and/or kV adjustment per patient size (includes targeted exams where dose is matched to clinical indication); or iterative reconstruction. Contrast material: ISOVUE 370; Contrast volume: 100 ml; Contrast route: INTRAVENOUS (IV); COMPARISON: CT Chest with contrast 11/16/2018 3:31 PM FINDINGS: Lungs: Unremarkable. No consolidation. No masses. Pleural spaces: Unremarkable. No pneumothorax. No pleural effusion. Heart: There is moderate atherosclerotic calcification of the coronary arteries. Pulmonary arteries: There is enlargement of the right and left pulmonary arteries, findings which can be associated with pulmonary arterial hypertension which should be correlated clinically. Aorta: There is fusiform dilatation of the supravalvular ascending thoracic aorta which measures 3.8 cm. maximally. There is no dissection or saccular component. Lymph nodes: Unremarkable. No enlarged lymph nodes. Bones/joints: The spine demonstrates moderate degenerative changes. Rib deformities left 6th and 7th ribs related to prior healed rib fractures. Soft tissues: Unremarkable. IMPRESSION: 1. There is fusiform dilatation of the supravalvular ascending thoracic aorta which measures 3.8 cm. maximally. There is no dissection or saccular component. 2. There is enlargement of the right and left pulmonary arteries, findings which can be associated with pulmonary arterial hypertension which should be correlated clinically. 3. No acute pulmonary parenchymal abnormalities. Electronically signed by: Luis Carlos Balderas On 02/26/2021 18:14:55 PM
--- NOTE | 2021-02-26 18:21 | REPVR ---
PROCEDURE INFORMATION: Exam: CT Abdomen And Pelvis With Contrast Exam date and time: 02/26/2021 5:36 PM Age: 71 years old Clinical indication: Other: Elev wbc, nausea, loss of appetite TECHNIQUE: Imaging protocol: Computed tomography of the abdomen and pelvis with contrast. Radiation optimization: All CT scans at this facility use at least one of these dose optimization techniques: automated exposure control; mA and/or kV adjustment per patient size (includes targeted exams where dose is matched to clinical indication); or iterative reconstruction. Contrast material: ISOVUE 370; Contrast volume: 100 ml; Contrast route: INTRAVENOUS (IV); COMPARISON: CT ABD/PEL W/IV CONTRAST ONLY 11/16/2018 3:31 PM FINDINGS: Liver: There is a diffuse decrease in hepatic parenchymal density, consistent with steatosis. Gallbladder and bile ducts: Normal. No calcified stones. No ductal dilation. Pancreas: Normal. No ductal dilation. Spleen: Normal. No splenomegaly. Adrenal glands: Normal. No mass. Kidneys and ureters: Bilateral simple renal cysts measure up to 2.7 cm in the left kidney. No follow-up suggested. Stomach and bowel: Mild diverticulosis is present in the distal colon. No diverticulitis. Appendix: No evidence of appendicitis. Intraperitoneal space: Unremarkable. No free air. No significant fluid collection. Vasculature: The aortoiliac vessels demonstrate moderate atherosclerotic calcification. Lymph nodes: Unremarkable. No enlarged lymph nodes. Urinary bladder: Unremarkable as visualized. Reproductive: The prostate gland demonstrates moderate hyperplasia. Bones/joints: Mild central spinal stenosis L3-L4 and L4-L5. Bulging annulus L5-S1. Soft tissues: Unremarkable. IMPRESSION: 1. There is a diffuse decrease in hepatic parenchymal density, consistent with steatosis. 2. Mild diverticulosis is present in the distal colon. No diverticulitis. 3. Moderate prostatic hyperplasia. 4. No acute findings. COMMENTS: Consistent with the [employer]'s Incidental Findings Committee white paper (J Am Mahesh Radiol 2018): Any incidental renal lesion less than 1 cm or classified as too small to characterize, or any incidental cystic renal lesion characterized as simple-appearing, is likely benign. No follow-up imaging is recommended for these lesions per consensus recommendations based on imaging criteria. Electronically signed by: Luis Carlos Balderas On 02/26/2021 18:20:35 PM
[2021-02-26 19:42] VITALS: BP 160/86
--- NOTE | 2021-02-28 09:20 | ED PDOC ---
Post-Departure Follow-Up radiology repor tfaxed to Iman Merchant MD Feb 28, 2021 09:20
== END 2021-02-26 19:44 | disposition home or self-care (01) ==
LOC: M ED 14:57
DX: D72.829 Elevated white blood cell count, unspecified (principal); D75.839 Thrombocytosis, unspecified; I77.819 Aortic ectasia, unspecified site; R09.81 Nasal congestion; E11.9 Type 2 diabetes mellitus without complications; I10 Essential (primary) hypertension; J44.9 Chronic obstructive pulmonary disease, unspecified; N40.0 Benign prostatic hyperplasia without lower urinary tract symptoms; F17.200 Nicotine dependence, unspecified, uncomplicated; Z79.899 Other long term (current) drug therapy
CPT/HCPCS: 71260; 74177; 80048; 81001; 83605; 85025; 85652; 86140; 87040; 96360; 96361; 99283; Q9967

== ENCOUNTER 2021-03-12 06:56 | Emergency (ER) | payer MEDICARE, BC, OTHER ==
[~2021-03-12] VITALS: Ht 165.1 cm; Wt 90.9 kg
[~2021-03-12 06:56] MED LIST changes: -DICY20TA11 PO; +DICY20TA20 PO
[2021-03-12] MEDS ORDERED: FURO40TA2 (07:30)
[2021-03-12] MEDS ORDERED: AMOX875T (07:30)
[2021-03-12] MEDS ORDERED: ALBU8.5H (07:30)
[2021-03-12] MEDS ORDERED: BISO5TAB14 (07:30)
[2021-03-12 09:57] LABS: BASO # 0.2 10^3/uL (0.0-0.2); BASO % 1.2 % (0.0-1.0); EOS # 2.7 10^3/uL (0.0-0.5); HEMATOCRIT 40.9 % (42.0-52.0); HEMOGLOBIN 13.2 g/dl (13.5-17.5); LYMPH # 1.2 10^3/uL (1.5-5.0); MEAN CORPUSCULAR HEMOGLOBIN 32.7 pg (27.0-33.0); MEAN CORPUSCULAR HGB CONC 32.3 g/dl (32.0-36.5); MEAN CORPUSCULAR VOLUME 101.2 fl (80.0-96.0); MONO # 1.1 10^3/uL (0.0-0.8); MONO % 8.2 % (2.0-8.0); NEUTROPHILS # 8.3 10^3/uL (1.5-8.5); NEUTROPHILS % 61.2 % (36.0-66.0); PLATELET COUNT, AUTOMATED 427 10^3/uL (150-450); RED BLOOD COUNT 4.04 10^6/uL (4.30-6.10); WHITE BLOOD COUNT 13.6 10^3/uL (4.0-10.0)
[2021-03-12 10:34] LABS: ALBUMIN 3.5 GM/DL (3.2-5.2); ALT/SGPT 23 U/L (12-78); BILIRUBIN,DIRECT 0.1 MG/DL (0.0-0.2); BILIRUBIN,TOTAL 0.3 MG/DL (0.2-1.0); BLOOD UREA NITROGEN 20 MG/DL (7-18); CALCIUM LEVEL 9.4 MG/DL (8.8-10.2); CARBON DIOXIDE LEVEL 29 MEQ/L (21-32); CHLORIDE LEVEL 107 MEQ/L (98-107); CREATININE FOR GFR 1.03 MG/DL (0.70-1.30); FREE T4 1.05 NG/DL (0.76-1.46); GLOMERULAR FILTRATION RATE > 60.0 (>42); GLUCOSE, FASTING 122 MG/DL (70-100); NT-PRO BNP 50 PG/ML (<125); POTASSIUM SERUM 4.7 MEQ/L (3.5-5.1); SODIUM LEVEL 141 MEQ/L (136-145); THYROID STIMULATING HORMONE 0.626 uIU/ML (0.358-3.740); TOTAL PROTEIN 7.4 GM/DL (6.4-8.2)
[2021-03-12 10:36] LABS: CK-MB VALUE MASS 1.5 NG/ML (<3.6); MB/CK RELATIVE INDEX 0.55 (< OR =4)
[2021-03-12] MEDS ORDERED: IPRATROPIUM 0.5MG/ALBUTEROL 2.5MG INH SOL UD 3ML (DUONEB) NEB ONE (11:20)
[2021-03-12] MEDS ORDERED: ISOVUE-370 76% 100ML VIAL As Ordered ONE (11:26)
[2021-03-12 11:37] LABS: FREE THYROXINE INDEX 2.8 % (1.4-3.8); T UPTAKE 34 % (33-40); THYROXINE (T4) 8.2 UG/DL (4.5-12.0)
[2021-03-12 11:57] LABS: PTH INTACT 44.3 PG/ML (18.5-88.0)
[2021-03-12 12:48] LABS: ABG BASE EXCESS 0.7 (-2.0-2.0); ABG HCO3 23.5 MEQ/L (22.0-26.0); ABG O2 SATURATION 95.6 % (95.0-99.0); ABG PARTIAL PRESSURE CO2 32.2 mmHg (35.0-45.0); ABG TOTAL CO2 24.5 MEQ/L (23.0-31.0); ABG pH (ARTERIAL) 7.481 UNITS (7.350-7.450)
[2021-03-12] MEDS ORDERED: LevoFLOXacin 750 MG TABLET PO ONE (13:35)
[2021-03-12] MEDS ORDERED: methylPREDNISolone 125MG 2ML VIAL IV ONE (13:35)
[2021-03-12] MEDS ORDERED: MUCI120T PO (13:38)
[2021-03-12] MEDS ORDERED: LEVO750T14 PO (13:38)
[2021-03-12] MEDS ORDERED: PRED20TA PO (13:38)
[2021-03-12 14:10] LABS: C REACTIVE PROTEIN QUANTITATIV 4.45 MG/DL (0.00-0.30)
[2021-03-12 14:28] LABS: ERYTHROCYTE SEDIMENTATION RATE 45 mm/hr (0-20)
[2021-03-12 14:42] VITALS: BP 122/60
== END 2021-03-12 14:45 | disposition home or self-care (01) ==
LOC: M ED 06:56
DX: R06.02 Shortness of breath (principal); R05.9 Cough, unspecified; D72.829 Elevated white blood cell count, unspecified; J98.11 Atelectasis; J90 Pleural effusion, not elsewhere classified; I10 Essential (primary) hypertension; E78.5 Hyperlipidemia, unspecified; J44.9 Chronic obstructive pulmonary disease, unspecified; N40.0 Benign prostatic hyperplasia without lower urinary tract symptoms; Z79.899 Other long term (current) drug therapy
CPT/HCPCS: 36600; 71046; 71275; 80048; 80076; 82550; 82553; 82803; 83880; 83970; 84436; 84439; 84443; 84479; 84484; 85025; 85652; 86140; 87040; 87798; 93005; 94640; 96374; 99284; J2930; Q9967

== ENCOUNTER → 2021-05-21 | Outpatient (CLI) | payer MEDICARE, BC, OTHER ==
[~2021-05-21] MED LIST changes: +ALBU8.5H; +AMOX875T; +BISO5TAB14; +FURO40TA2; +LEVO750T14 PO; +MUCI120T PO; +OMEP-173 PO; -OMEP-218 PO
== END ==
LOC: M RAD 14:31
PROVIDERS: ATTEND Family Medicine
DX: Z87.891 Personal history of nicotine dependence (principal)

== ENCOUNTER → 2021-05-21 | Outpatient (CLI) | payer MEDICARE, BC, OTHER ==
[2021-05-21 15:45] LABS: HEMATOCRIT 40.4 % (42.0-52.0); HEMOGLOBIN 13.6 g/dl (13.5-17.5); MEAN CORPUSCULAR HEMOGLOBIN 33.1 pg (27.0-33.0); MEAN CORPUSCULAR HGB CONC 33.7 g/dl (32.0-36.5); MEAN CORPUSCULAR VOLUME 98.3 fl (80.0-96.0); PLATELET COUNT, AUTOMATED 386 10^3/uL (150-450); RED BLOOD COUNT 4.11 10^6/uL (4.30-6.10); WHITE BLOOD COUNT 9.5 10^3/uL (4.0-10.0)
[2021-05-21 16:02] LABS: HEMOGLOBIN A1c 5.6 %
[2021-05-21 16:17] LABS: ALBUMIN 3.8 GM/DL (3.2-5.2); ALT/SGPT 27 U/L (12-78); BILIRUBIN,TOTAL 0.4 MG/DL (0.2-1.0); BLOOD UREA NITROGEN 26 MG/DL (7-18); CALCIUM LEVEL 9.3 MG/DL (8.8-10.2); CARBON DIOXIDE LEVEL 34 MEQ/L (21-32); CHLORIDE LEVEL 103 MEQ/L (98-107); CREATININE FOR GFR 1.03 MG/DL (0.70-1.30); GLOMERULAR FILTRATION RATE > 60.0 (>42); GLUCOSE, FASTING 110 MG/DL (70-100); POTASSIUM SERUM 4.2 MEQ/L (3.5-5.1); SODIUM LEVEL 140 MEQ/L (136-145); TOTAL PROTEIN 7.2 GM/DL (6.4-8.2)
== END ==
LOC: M WUC 14:11
PROVIDERS: ATTEND Family Medicine
DX: R10.9 Unspecified abdominal pain (principal); R63.4 Abnormal weight loss; F32.9 Major depressive disorder, single episode, unspecified

== ENCOUNTER → 2021-08-13 | Outpatient (CLI) | payer MEDICARE, BC, OTHER ==
[~2021-08-13] MED LIST changes: +AMLO1TAB24; +DUPI300P; +ECOT81TA5 PO; +LASI20TA3 PO; +LEVOTAB10; +MIRT-10; +PRAV20TA2; +VITA100093 PO; +ZOLO100T
== END ==
LOC: M LABSMTC 09:36
PROVIDERS: ATTEND Anesthesiology
DX: Z20.822 Contact with and (suspected) exposure to COVID-19 (principal)

== ENCOUNTER 2021-08-18 06:56 | Day surgery (SDC) | payer MEDICARE, BC, OTHER ==
[~2021-08-18] VITALS: Ht 167.6 cm; Wt 95.7 kg
[~2021-08-18 06:56] MED LIST changes: +LIDOCAINE 2% 100MG/5ML SDV (FOR ANES.) As Ordered ONE; +NS 1,000 ML IV ONE; +propofoL 500 MG/50 ML VIAL As Ordered ONE
[2021-08-18] MEDS ORDERED: fentaNYL 100 MCG/2 ML INJECTION As Ordered ONE (08:18)
[2021-08-18 09:22] VITALS: BP 193/86
== END 2021-08-18 09:25 | disposition home or self-care (01) ==
LOC: M OPP 06:56
PROVIDERS: ATTEND Internal Medicine Gastroenterology
DX: Z12.11 Encounter for screening for malignant neoplasm of colon (principal); Z86.010 Personal history of colon polyps; D12.2 Benign neoplasm of ascending colon; K57.30 Diverticulosis of large intestine without perforation or abscess without bleeding; K64.0 First degree hemorrhoids; K22.89 Other specified disease of esophagus; K44.9 Diaphragmatic hernia without obstruction or gangrene; K31.89 Other diseases of stomach and duodenum; R12 Heartburn; Z79.51 Long term (current) use of inhaled steroids; Z79.82 Long term (current) use of aspirin; Z79.899 Other long term (current) drug therapy; Z87.891 Personal history of nicotine dependence
CPT/HCPCS: 43239; 45385; 88305; J3010

== ENCOUNTER → 2022-01-13 | Outpatient (CLI) | payer MEDICARE, BC, OTHER ==
[~2022-01-13] MED LIST changes: -DOXY-350 PO; +DOXY-444 PO; -LIDOCAINE 2% 100MG/5ML SDV (FOR ANES.) As Ordered ONE; -NS 1,000 ML IV ONE; -propofoL 500 MG/50 ML VIAL As Ordered ONE
[2022-01-13 17:48] LABS: HEMATOCRIT 41.8 % (42.0-52.0); HEMOGLOBIN 13.6 g/dl (13.5-17.5); MEAN CORPUSCULAR HEMOGLOBIN 33.4 pg (27.0-33.0); MEAN CORPUSCULAR HGB CONC 32.5 g/dl (32.0-36.5); MEAN CORPUSCULAR VOLUME 102.7 fl (80.0-96.0); PLATELET COUNT, AUTOMATED 370 10^3/uL (150-450); RED BLOOD COUNT 4.07 10^6/uL (4.30-6.10); WHITE BLOOD COUNT 9.3 10^3/uL (4.0-10.0)
[2022-01-13 18:16] LABS: ALT/SGPT 59 U/L (12-78); BILIRUBIN,TOTAL 0.4 MG/DL (0.2-1.0); BLOOD UREA NITROGEN 26 MG/DL (7-18); CALCIUM LEVEL 9.1 MG/DL (8.8-10.2); CARBON DIOXIDE LEVEL 30 MEQ/L (21-32); CHLORIDE LEVEL 103 MEQ/L (98-107); CHOLESTEROL LEVEL 250 MG/DL (<200); CREATININE FOR GFR 1.05 MG/DL (0.70-1.30); GLOMERULAR FILTRATION RATE > 60.0 (>42); GLUCOSE, FASTING 99 MG/DL (70-100); HDL CHOLESTEROL 76 MG/DL (>40); POTASSIUM SERUM 3.7 MEQ/L (3.5-5.1); SODIUM LEVEL 142 MEQ/L (136-145); TRIGLYCERIDES LEVEL 168 MG/DL (<150)
[2022-01-13 18:17] LABS: ALBUMIN 3.7 GM/DL (3.2-5.2); CHOLESTEROL RISK RATIO 3.289 (<5); FREE T4 0.79 NG/DL (0.76-1.46); LDL CHOLESTEROL 140 MG/DL (<100); NON-HDL-C 174 MG/DL; THYROID STIMULATING HORMONE 0.981 uIU/ML (0.358-3.740); TOTAL PROTEIN 7.5 GM/DL (6.4-8.2)
[2022-01-13 20:45] LABS: HEMOGLOBIN A1c 5.7 %
== END ==
LOC: M WUC 14:50
PROVIDERS: ATTEND Family Medicine
DX: N18.31 Chronic kidney disease, stage 3a (principal); E03.9 Hypothyroidism, unspecified; R73.01 Impaired fasting glucose; E78.2 Mixed hyperlipidemia; I11.9 Hypertensive heart disease without heart failure; Z12.5 Encounter for screening for malignant neoplasm of prostate
CPT/HCPCS: 36415; 80053; 80061; 83036; 84439; 84443; 85027; G0103

== ENCOUNTER → 2022-04-21 | Outpatient (CLI) | payer MEDICARE, BC, OTHER ==
[~2022-04-21] MED LIST changes: +DIPH-435 PO; -DIPH25CA32 PO
== END ==
LOC: M LAB 14:41
PROVIDERS: ATTEND Physician Assistant
DX: L20.9 Atopic dermatitis, unspecified (principal)

== ENCOUNTER → 2022-05-08 | Outpatient (REF) | payer MEDICARE, OTHER ==
[2022-05-08 20:03] LABS: ALKALINE PHOSPHATASE 80 U/L (46-116); ALT/SGPT 53 U/L (7.0-40); AST/SGOT 29 U/L (<34); BILIRUBIN,TOTAL 0.5 MG/DL (0.3-1.2); BLOOD UREA NITROGEN 24 MG/DL (9-23); CALCIUM LEVEL 9.3 MG/DL (8.3-10.6); CARBON DIOXIDE LEVEL 32 MMOL/L (20-31); CHLORIDE LEVEL 99 MMOL/L (98-107); CHOLESTEROL LEVEL 224 MG/DL (<200); CHOLESTEROL RISK RATIO 3.14 (<5); CREATININE FOR GFR 1.02 MG/DL (0.70-1.30); FREE T4 1.12 NG/DL (0.89-1.76); GLOMERULAR FILTRATION RATE > 60.0 (>42); GLUCOSE, FASTING 115 MG/DL (74-106); HDL CHOLESTEROL 71.2 MG/DL (>40); LDL CHOLESTEROL 129.6 MG/DL (<100); NON-HDL-C 153 MG/DL; POTASSIUM SERUM 4.2 MMOL/L (3.5-5.1); SODIUM LEVEL 140 MMOL/L (136-145); THYROID STIMULATING HORMONE 1.395 uIU/ML (0.55-4.78); TOTAL PROTEIN 7.4 G/DL (5.7-8.2); TRIGLYCERIDES LEVEL 116 MG/DL (<150)
[2022-05-08 20:10] LABS: HEMATOCRIT 43.8 % (42.0-52.0); HEMOGLOBIN 14.3 g/dl (13.5-17.5); HEMOGLOBIN A1c 5.7 % (4.0-6.0); MEAN CORPUSCULAR HEMOGLOBIN 33.4 pg (27.0-33.0); MEAN CORPUSCULAR HGB CONC 32.6 g/dl (32.0-36.5); MEAN CORPUSCULAR VOLUME 102.3 fl (80.0-96.0); PLATELET COUNT, AUTOMATED 388 10^3/uL (150-450); RED BLOOD COUNT 4.28 10^6/uL (4.30-6.10); WHITE BLOOD COUNT 13.1 10^3/uL (4.0-10.0)
== END ==
LOC: M SFHCADAM 15:32
PROVIDERS: ATTEND Family Medicine
DX: N18.31 Chronic kidney disease, stage 3a (principal); E78.2 Mixed hyperlipidemia; R73.01 Impaired fasting glucose

== ENCOUNTER → 2022-07-13 | Outpatient (CLI) | payer MEDICARE, BC, OTHER ==
[~2022-07-13] MED LIST changes: +FLUT50SP17; -FLUTISP
== END ==
LOC: M RAD 13:08
PROVIDERS: ATTEND Family Medicine
DX: F17.210 Nicotine dependence, cigarettes, uncomplicated (principal)

== ENCOUNTER → 2022-10-06 | Outpatient (REF) | payer MEDICARE, OTHER | LOC: M SFHCADAM 11:45 | PROVIDERS: ATTEND Physician Assistant Medical | DX: M10.9 Gout, unspecified (principal) ==

== ENCOUNTER 2022-11-02 15:07 | Emergency (ER) | payer MEDICARE, OTHER ==
[~2022-11-02] VITALS: Ht 165.1 cm; Wt 93.7 kg
[2022-11-02] MEDS ORDERED: PRED10TA2 PO (18:28)
[2022-11-02 18:36] VITALS: BP 184/88; TEMP 97.2; O2SAT 95
== END 2022-11-02 19:11 | disposition home or self-care (01) ==
LOC: M ED 15:07
DX: M10.062 Idiopathic gout, left knee (principal); E11.9 Type 2 diabetes mellitus without complications; I10 Essential (primary) hypertension; E78.5 Hyperlipidemia, unspecified; K21.9 Gastro-esophageal reflux disease without esophagitis; M54.50 Low back pain, unspecified; F32.A Depression, unspecified; F12.10 Cannabis abuse, uncomplicated; F10.10 Alcohol abuse, uncomplicated; Z79.52 Long term (current) use of systemic steroids; Z79.899 Other long term (current) drug therapy

== ENCOUNTER → 2022-11-24 | Outpatient (REF) | payer MEDICARE, OTHER, BC ==
[~2022-11-24] MED LIST changes: +PRED10TA2 PO
== END ==
LOC: M SFHCADAM 19:31
PROVIDERS: ATTEND Physician Assistant Medical
DX: M10.9 Gout, unspecified (principal)

== ENCOUNTER 2022-12-21 17:18 | Emergency (ER) | payer MEDICARE, BC, OTHER ==
[~2022-12-21] VITALS: Ht 165.1 cm; Wt 93.2 kg
[2022-12-21] MEDS ORDERED: OMEP40CA4 PO (17:31)
[2022-12-21] MEDS ORDERED: MONT10TA97 PO (17:31)
[2022-12-21] MEDS ORDERED: NS 1,000 ML IV ONE (19:40)
[2022-12-21 20:28] LABS: BASO # 0.1 10^3/uL (0.0-0.2); BASO % 0.9 % (0.0-1.0); EOS # 0.1 10^3/uL (0.0-0.5); EOS % 1.1 % (0.0-3.0); HEMATOCRIT 40.8 % (42.0-52.0); HEMOGLOBIN 14.3 g/dl (13.5-17.5); LYMPH # 1.4 10^3/uL (1.5-5.0); LYMPH % 15.9 % (24.0-44.0); MEAN CORPUSCULAR HEMOGLOBIN 34.5 pg (27.0-33.0); MEAN CORPUSCULAR VOLUME 98.3 fl (80.0-96.0); MONO # 0.9 10^3/uL (0.0-0.8); MONO % 9.5 % (2.0-8.0); NEUTROPHILS # 6.5 10^3/uL (1.5-8.5); NEUTROPHILS % 72.3 % (36.0-66.0); PLATELET COUNT, AUTOMATED 365 10^3/uL (150-450); RED BLOOD COUNT 4.15 10^6/uL (4.30-6.10)
[2022-12-21 20:45] LABS: INR 1.07; PROTHROMBIN TIME 13.6 SECONDS (12.5-14.5)
[2022-12-21 20:46] LABS: PARTIAL THROMBOPLASTIN TIME 25.4 SECONDS (24.8-34.2)
[2022-12-21 20:48] LABS: LIPASE 45 U/L (12-53)
[2022-12-21 20:50] LABS: ALBUMIN 3.7 G/DL (3.2-5.2); ALKALINE PHOSPHATASE 71 U/L (46-116); ALT/SGPT 26 U/L (7.0-40); AST/SGOT 20 U/L (<34); BILIRUBIN,DIRECT 0.2 MG/DL (<0.4); BILIRUBIN,TOTAL 0.6 MG/DL (0.3-1.2); BLOOD UREA NITROGEN 18 MG/DL (9-23); CALCIUM LEVEL 9.1 MG/DL (8.3-10.6); CARBON DIOXIDE LEVEL 33 MMOL/L (20-31); CHLORIDE LEVEL 101 MMOL/L (98-107); CREATININE FOR GFR 0.96 MG/DL (0.70-1.30); GLOMERULAR FILTRATION RATE > 60.0 (>42); GLUCOSE, FASTING 86 MG/DL (74-106); POTASSIUM SERUM 4.1 MMOL/L (3.5-5.1); SODIUM LEVEL 141 MMOL/L (136-145); TOTAL PROTEIN 7.1 G/DL (5.7-8.2)
[2022-12-21] MEDS ORDERED: ISOVUE-370 76% 100ML VIAL As Ordered ONE (21:26)
[2022-12-21 22:29] VITALS: O2SAT 96
[2022-12-21 23:57] VITALS: BP 170/96; TEMP 97.8
== END 2022-12-22 00:03 | disposition home or self-care (01) ==
LOC: M ED 17:18
DX: K21.9 Gastro-esophageal reflux disease without esophagitis (principal); K76.0 Fatty (change of) liver, not elsewhere classified; N32.89 Other specified disorders of bladder; E78.5 Hyperlipidemia, unspecified; I10 Essential (primary) hypertension; Z79.82 Long term (current) use of aspirin; Z79.899 Other long term (current) drug therapy
CPT/HCPCS: 74177; 80048; 80076; 83690; 85025; 85610; 85730; 96360; 96361; 99284; Q9967

== ENCOUNTER → 2023-02-24 | Outpatient (REF) | payer MEDICARE, BC, OTHER ==
[~2023-02-24] MED LIST changes: -FLUT50SP17; +FLUTISP; +MONT10TA97 PO; +OMEP40CA4 PO
[2023-02-24 16:59] LABS: HEMATOCRIT 44.3 % (42.0-52.0); HEMOGLOBIN 14.8 g/dl (13.5-17.5); MEAN CORPUSCULAR HEMOGLOBIN 33.8 pg (27.0-33.0); MEAN CORPUSCULAR HGB CONC 33.4 g/dl (32.0-36.5); MEAN CORPUSCULAR VOLUME 101.1 fl (80.0-96.0); PLATELET COUNT, AUTOMATED 403 10^3/uL (150-450); RED BLOOD COUNT 4.38 10^6/uL (4.30-6.10); WHITE BLOOD COUNT 8.9 10^3/uL (4.0-10.0)
[2023-02-24 17:17] LABS: URIC ACID 9.4 MG/DL (3.7-9.2)
[2023-02-24 17:21] LABS: ALKALINE PHOSPHATASE 68 U/L (46-116); ALT/SGPT 30 U/L (7.0-40); AST/SGOT 19 U/L (<34); BILIRUBIN,TOTAL 0.5 MG/DL (0.3-1.2); BLOOD UREA NITROGEN 24 MG/DL (9-23); CALCIUM LEVEL 9.9 MG/DL (8.3-10.6); CARBON DIOXIDE LEVEL 32 MMOL/L (20-31); CHLORIDE LEVEL 103 MMOL/L (98-107); CHOLESTEROL LEVEL 212 MG/DL (<200); CHOLESTEROL RISK RATIO 2.75 (<5); CREATININE FOR GFR 0.91 MG/DL (0.70-1.30); GLOMERULAR FILTRATION RATE > 60.0 (>42); GLUCOSE, FASTING 98 MG/DL (74-106); HDL CHOLESTEROL 76.9 MG/DL (>40); LDL CHOLESTEROL 112.9 MG/DL (<100); NON-HDL-C 135.1 MG/DL; POTASSIUM SERUM 4.1 MMOL/L (3.5-5.1); SODIUM LEVEL 140 MMOL/L (136-145); TOTAL PROTEIN 7.3 G/DL (5.7-8.2); TRIGLYCERIDES LEVEL 111 MG/DL (<150)
[2023-02-24 17:22] LABS: FREE T4 1.18 NG/DL (0.89-1.76); THYROID STIMULATING HORMONE 0.618 uIU/ML (0.55-4.78)
[2023-02-24 17:50] LABS: HEMOGLOBIN A1c 5.5 % (4.0-6.0)
== END ==
LOC: M SFHCADAM 13:34
PROVIDERS: ATTEND Family Medicine
DX: M10.09 Idiopathic gout, multiple sites (principal); E78.2 Mixed hyperlipidemia; E03.9 Hypothyroidism, unspecified; R73.01 Impaired fasting glucose; R10.13 Epigastric pain

== ENCOUNTER → 2023-06-03 | Outpatient (REF) | payer MEDICARE, OTHER | LOC: M SFHCDERM 13:02 | PROVIDERS: ATTEND Physician Assistant | DX: C44.622 Squamous cell carcinoma of skin of right upper limb, including shoulder (principal) ==

== ENCOUNTER → 2023-07-05 | Outpatient (CLI) | payer MEDICARE, BC, OTHER ==
[~2023-07-05] MED LIST changes: +DOXY-440 PO; -DOXY-444 PO
== END ==
LOC: M ADAMS 14:31
PROVIDERS: ATTEND Physician Assistant
DX: M19.011 Primary osteoarthritis, right shoulder (principal)

== ENCOUNTER → 2023-07-08 | Outpatient (REF) | payer MEDICARE, BC, OTHER | LOC: M LAB REF 18:01 | PROVIDERS: ATTEND Surgery | DX: L90.5 Scar conditions and fibrosis of skin (principal) ==

== ENCOUNTER → 2023-07-16 | Outpatient (CLI) | payer MEDICARE, BC, OTHER | LOC: M SOG 08:02 | PROVIDERS: ATTEND Physician Assistant | DX: M25.511 Pain in right shoulder (principal); Z53.9 Procedure and treatment not carried out, unspecified reason ==

== ENCOUNTER → 2023-07-22 | Outpatient (CLI) | payer MEDICARE, BC | LOC: M RAD 14:39 | PROVIDERS: ATTEND Family Medicine | DX: Z87.891 Personal history of nicotine dependence (principal) ==

== ENCOUNTER → 2023-08-25 | Outpatient (CLI) | payer MEDICARE, BC ==
[2023-08-25 19:08] LABS: HEMATOCRIT 42.7 % (42.0-52.0); HEMOGLOBIN 14.2 g/dl (13.5-17.5); MEAN CORPUSCULAR HEMOGLOBIN 34.1 pg (27.0-33.0); MEAN CORPUSCULAR HGB CONC 33.3 g/dl (32.0-36.5); MEAN CORPUSCULAR VOLUME 102.4 fl (80.0-96.0); PLATELET COUNT, AUTOMATED 343 10^3/uL (150-450); RED BLOOD COUNT 4.17 10^6/uL (4.30-6.10); WHITE BLOOD COUNT 9.6 10^3/uL (4.0-10.0)
[2023-08-25 19:14] LABS: HEMOGLOBIN A1c 5.4 % (4.0-6.0)
[2023-08-25 19:20] LABS: URIC ACID 9.2 MG/DL (3.7-9.2)
[2023-08-25 19:23] LABS: ALBUMIN 3.8 G/DL (3.2-5.2); ALKALINE PHOSPHATASE 74 U/L (46-116); ALT/SGPT 22 U/L (7.0-40); AST/SGOT 10 U/L (<34); BILIRUBIN,TOTAL 0.5 MG/DL (0.3-1.2); BLOOD UREA NITROGEN 23 MG/DL (9-23); CALCIUM LEVEL 9.8 MG/DL (8.3-10.6); CARBON DIOXIDE LEVEL 33 MMOL/L (20-31); CHLORIDE LEVEL 102 MMOL/L (98-107); CHOLESTEROL LEVEL 191 MG/DL (<200); CHOLESTEROL RISK RATIO 2.78 (<5); CREATININE FOR GFR 1.07 MG/DL (0.70-1.30); GLOMERULAR FILTRATION RATE > 60.0 (>42); GLUCOSE, FASTING 98 MG/DL (74-106); HDL CHOLESTEROL 68.6 MG/DL (>40); NON-HDL-C 122.4 MG/DL; POTASSIUM SERUM 4.1 MMOL/L (3.5-5.1); SODIUM LEVEL 144 MMOL/L (136-145); TRIGLYCERIDES LEVEL 102 MG/DL (<150)
[2023-08-25 19:24] LABS: THYROID STIMULATING HORMONE 1.519 uIU/ML (0.55-4.78)
[2023-08-25 19:25] LABS: FREE T4 1.16 NG/DL (0.89-1.76)
== END ==
LOC: M WUC 15:28
PROVIDERS: ATTEND Family Medicine
DX: N18.31 Chronic kidney disease, stage 3a (principal); E03.9 Hypothyroidism, unspecified; I11.9 Hypertensive heart disease without heart failure

== ENCOUNTER → 2023-11-15 | Outpatient (REF) | payer MEDICARE, BC ==
[2023-11-15 17:58] LABS: BASO # 0.1 10^3/uL (0.0-0.2); EOS # 0.3 10^3/uL (0.0-0.5); EOS % 4.6 % (0.0-3.0); HEMATOCRIT 45.4 % (42.0-52.0); HEMOGLOBIN 15.2 g/dl (13.5-17.5); LYMPH # 1.4 10^3/uL (1.5-5.0); LYMPH % 18.6 % (24.0-44.0); MEAN CORPUSCULAR HEMOGLOBIN 34.1 pg (27.0-33.0); MEAN CORPUSCULAR HGB CONC 33.5 g/dl (32.0-36.5); MEAN CORPUSCULAR VOLUME 101.8 fl (80.0-96.0); MONO # 0.9 10^3/uL (0.0-0.8); MONO % 11.7 % (2.0-8.0); NEUTROPHILS # 4.7 10^3/uL (1.5-8.5); NEUTROPHILS % 63.8 % (36.0-66.0); PLATELET COUNT, AUTOMATED 394 10^3/uL (150-450); RED BLOOD COUNT 4.46 10^6/uL (4.30-6.10); WHITE BLOOD COUNT 7.4 10^3/uL (4.0-10.0)
[2023-11-15 18:21] LABS: LIPASE 46 U/L (12-53)
[2023-11-15 18:24] LABS: AMYLASE 53 U/L (30-118)
[2023-11-15 18:25] LABS: ALBUMIN 4.1 G/DL (3.2-5.2); ALKALINE PHOSPHATASE 80 U/L (46-116); ALT/SGPT 24 U/L (7.0-40); AST/SGOT 17 U/L (<34); BILIRUBIN,TOTAL 0.8 MG/DL (0.3-1.2); BLOOD UREA NITROGEN 23 MG/DL (9-23); CALCIUM LEVEL 10.4 MG/DL (8.3-10.6); CARBON DIOXIDE LEVEL 33 MMOL/L (20-31); CHLORIDE LEVEL 101 MMOL/L (98-107); CREATININE FOR GFR 0.97 MG/DL (0.70-1.30); GLOMERULAR FILTRATION RATE > 60.0 (>42); GLUCOSE, FASTING 105 MG/DL (74-106); POTASSIUM SERUM 3.9 MMOL/L (3.5-5.1); SODIUM LEVEL 142 MMOL/L (136-145); TOTAL PROTEIN 7.7 G/DL (5.7-8.2)
== END ==
LOC: M SFHCADAM 11:43
PROVIDERS: ATTEND Physician Assistant
DX: R42 Dizziness and giddiness (principal); H21.562 Pupillary abnormality, left eye; R63.0 Anorexia; R11.0 Nausea

== ENCOUNTER → 2023-11-16 | Outpatient (CLI) | payer MEDICARE, BC | LOC: M SOG 08:03 | PROVIDERS: ATTEND Physician Assistant | DX: M77.31 Calcaneal spur, right foot (principal); M19.071 Primary osteoarthritis, right ankle and foot ==

== ENCOUNTER → 2023-11-18 | Outpatient (CLI) | payer MEDICARE, BC | LOC: M LAB 12:31 | PROVIDERS: ATTEND Physician Assistant | DX: M25.571 Pain in right ankle and joints of right foot (principal) ==

== ENCOUNTER → 2023-11-18 | Outpatient (CLI) | payer MEDICARE, BC ==
[~2023-11-18] MED LIST changes: +GASTROGRAFIN SOLUTION 30ML As Ordered ONE; +ISOVUE-370 76% 100ML VIAL As Ordered ONE
== END ==
LOC: M RAD 12:17
PROVIDERS: ATTEND Physician Assistant
DX: R42 Dizziness and giddiness (principal); H21.562 Pupillary abnormality, left eye; R63.0 Anorexia; R11.0 Nausea; N28.1 Cyst of kidney, acquired; K57.30 Diverticulosis of large intestine without perforation or abscess without bleeding; K76.0 Fatty (change of) liver, not elsewhere classified; M25.571 Pain in right ankle and joints of right foot
CPT/HCPCS: 70551; 74177; 84550; Q9963; Q9967

== ENCOUNTER → 2024-01-11 | Outpatient (REF) | payer MEDICARE, BC ==
[~2024-01-11] MED LIST changes: -GASTROGRAFIN SOLUTION 30ML As Ordered ONE; -ISOVUE-370 76% 100ML VIAL As Ordered ONE; -LEVO750T14 PO; +LEVO75TAB PO
== END ==
LOC: M SFHCDERM 17:42
PROVIDERS: ATTEND Physician Assistant
DX: D04.61 Carcinoma in situ of skin of right upper limb, including shoulder (principal)

== ENCOUNTER → 2024-04-21 | Outpatient (REF) | payer MEDICARE, BC ==
[2024-04-21 19:29] LABS: HEMATOCRIT 43.8 % (42.0-52.0); HEMOGLOBIN 14.5 g/dl (13.5-17.5); MEAN CORPUSCULAR HGB CONC 33.1 g/dl (32.0-36.5); MEAN CORPUSCULAR VOLUME 102.6 fl (80.0-96.0); PLATELET COUNT, AUTOMATED 449 10^3/uL (150-450); RED BLOOD COUNT 4.27 10^6/uL (4.30-6.10); WHITE BLOOD COUNT 12.1 10^3/uL (4.0-10.0)
[2024-04-21 19:58] LABS: URIC ACID 5.8 MG/DL (3.7-9.2)
[2024-04-21 20:00] LABS: THYROID STIMULATING HORMONE 1.639 uIU/ML (0.55-4.78)
[2024-04-21 20:02] LABS: ALBUMIN 3.5 G/DL (3.2-5.2); ALKALINE PHOSPHATASE 83 U/L (40-129); ALT/SGPT 17 U/L (7.0-40); AST/SGOT 13 U/L (<34); BILIRUBIN,TOTAL 0.5 MG/DL (0.3-1.2); BLOOD UREA NITROGEN 16 MG/DL (9-23); CALCIUM LEVEL 9.5 MG/DL (8.3-10.6); CARBON DIOXIDE LEVEL 32 MMOL/L (20-31); CHLORIDE LEVEL 100 MMOL/L (98-107); CHOLESTEROL LEVEL 227 MG/DL (<200); CHOLESTEROL RISK RATIO 3.28 (<5); CREATININE FOR GFR 0.84 MG/DL (0.70-1.30); FREE T4 1.26 NG/DL (0.89-1.76); GLOMERULAR FILTRATION RATE > 60.0 (>42); GLUCOSE, FASTING 82 MG/DL (74-106); HDL CHOLESTEROL 69.2 MG/DL (>40); LDL CHOLESTEROL 137.8 MG/DL (<100); NON-HDL-C 157.8 MG/DL; POTASSIUM SERUM 4.1 MMOL/L (3.5-5.1); SODIUM LEVEL 143 MMOL/L (136-145); TOTAL PROTEIN 7.4 G/DL (5.7-8.2); TRIGLYCERIDES LEVEL 100 MG/DL (<150)
[2024-04-21 20:03] LABS: HEMOGLOBIN A1c 5.1 % (4.0-6.0)
== END ==
LOC: M SFHCADAM 14:46
PROVIDERS: ATTEND Family Medicine
DX: M10.09 Idiopathic gout, multiple sites (principal); E03.9 Hypothyroidism, unspecified; E78.2 Mixed hyperlipidemia; F32.9 Major depressive disorder, single episode, unspecified; I11.9 Hypertensive heart disease without heart failure; R73.01 Impaired fasting glucose

== ENCOUNTER → 2024-09-19 | Outpatient (REF) | payer MEDICARE, BC ==
[~2024-09-19] MED LIST changes: +GLIP-318 PO; -GLIP5TAB20 PO; -PRAV20TA2; +PRAV20TA78
[2024-09-19 19:05] LABS: ALT/SGPT 39 U/L (7.0-40); AST/SGOT 31 U/L (<34); CALCIUM LEVEL 9.5 MG/DL (8.3-10.6); CARBON DIOXIDE LEVEL 36 MMOL/L (20-31); CHLORIDE LEVEL 97 MMOL/L (98-107); CREATININE FOR GFR 0.84 MG/DL (0.70-1.30); GLOMERULAR FILTRATION RATE > 90.0 (>42); POTASSIUM SERUM 4.0 MMOL/L (3.5-5.1); SODIUM LEVEL 144 MMOL/L (136-145)
[2024-09-19 19:35] LABS: BASO # 0.1 10^3/uL (0.0-0.2); BASO % 1.1 % (0.0-1.0); EOS # 0.3 10^3/uL (0.0-0.5); EOS % 4.0 % (0.0-3.0); LYMPH # 1.0 10^3/uL (1.5-5.0); LYMPH % 13.0 % (24.0-44.0); MONO # 0.9 10^3/uL (0.0-0.8); MONO % 11.5 % (2.0-8.0); NEUTROPHILS # 5.3 10^3/uL (1.5-8.5); NEUTROPHILS % 70.1 % (36.0-66.0); PLATELET COUNT, AUTOMATED 345 10^3/uL (150-450)
== END ==
LOC: M SFHCADAM 14:49
PROVIDERS: ATTEND Family Medicine
DX: Z01.818 Encounter for other preprocedural examination (principal)

== ENCOUNTER 2024-10-25 09:41 | Day surgery (SDC) | payer MEDICARE, BC ==
[2024-09-27] MEDS: OFLOXACIN 0.3 % (OCUFLOX) OPTH SOL 5ML OD ONE (06:00)
[2024-09-27] MEDS: LIDOCAINE 3.5% 1 ML OPHTH TOPICAL GEL OU ONE (06:00)
[~2024-10-25] VITALS: Ht 165.1 cm; Wt 90.3 kg
[~2024-10-25 09:41] MED LIST changes: -AMLO1TAB24; +AMLO1TAB24 PO; -BISO5TAB14; +BISO5TAB14 PO; +CYCLOPENTOLATE 1% OPHTH SOLN 2 ML BTL OD SCH; -DUPI300P; +DUPI300P SC; -MIRT-10; +MIRT-10 PO; +PHENYLEPHRINE 10% OPHTH SOL 5ML OD PRN; +PHENYLEPHRINE 2.5% OPHTH SOL 2ML OD SCH; -PRAV20TA78; +PRAV20TA78 PO; +SUCR1TAB56 PO; +TROPICAMIDE 1% OPHTH SOLN 15ML OD SCH; -ZOLO100T
[2024-10-25] MEDS: PHENYLEPHRINE 2.5% OPHTH SOL 2ML OD SCH (11:19)
[2024-10-25] MEDS: CYCLOPENTOLATE 1% OPHTH SOLN 2 ML BTL OD SCH (11:19)
[2024-10-25] MEDS: TROPICAMIDE 1% OPHTH SOLN 15ML OD SCH (11:20)
[2024-10-25] MEDS ORDERED: LIDOCAINE 2% 100 MG/5 ML SDV (FOR ANES.) As Ordered ONE (11:49)
[2024-10-25] MEDS: LIDOCAINE 3.5% 1 ML OPHTH TOPICAL GEL OU ONE (12:04)
[2024-10-25] MEDS: OFLOXACIN 0.3 % (OCUFLOX) OPTH SOL 5ML OD ONE (12:04)
[2024-10-25] MEDS: CEFUROXIME 1 MG/0.1 ML INTRACAMERAL INJ As Ordered ONE (12:26)
[2024-10-25] MEDS: LIDOCAINE 1% SDV 5 ML VIAL As Ordered ONE (12:26)
[2024-10-25] MEDS: TOBRADEX OPHTH OINT 3.5 GM As Ordered ONE (12:27)
[2024-10-25] MEDS: BSS IRRIG/VANCO(10MG)/TOBRA(5MG)/EPINEPH(1:1000-0.5CC)500ML BAG-ORONLY As Ordered ONE (12:27)
[2024-10-25] MEDS: LIDOCAINE 2% W/EPINEPHrine 20 ML VIAL **PRES FREE As Ordered ONE (12:27)
[2024-10-25] MEDS: LIDOCAINE PRES-FREE 2% 10 ML AMP As Ordered ONE (12:28)
[2024-10-25] MEDS: DUOVISC (0.50 ML VISCOAT/0.85 ML PROVISC) OPHTH KIT As Ordered ONE (12:35)
[2024-10-25] MEDS: CARBACHOL 0.01% OPHTH SOLN 1.5 ML VIAL As Ordered ONE (12:53)
[2024-10-25 13:12] VITALS: BP 174/84; TEMP 97.2; O2SAT 96
== END 2024-10-25 13:29 | disposition home or self-care (01) ==
LOC: M SDC 09:41
PROVIDERS: ATTEND Ophthalmology
DX: T85.22XA Displacement of intraocular lens, initial encounter (principal); Y77.2 Prosthetic and other implants, materials and accessory ophthalmic devices associated with adverse incidents; I10 Essential (primary) hypertension; J44.9 Chronic obstructive pulmonary disease, unspecified; N40.0 Benign prostatic hyperplasia without lower urinary tract symptoms; E78.00 Pure hypercholesterolemia, unspecified; K21.9 Gastro-esophageal reflux disease without esophagitis; Z79.899 Other long term (current) drug therapy; Z79.82 Long term (current) use of aspirin; Z79.51 Long term (current) use of inhaled steroids; Z98.41 Cataract extraction status, right eye; Z98.42 Cataract extraction status, left eye
CPT/HCPCS: 66986; J0697; J3010; V2630